=== PATIENT | female | born 1965 | race Caucasian/White ===

== ENCOUNTER → 2018-02-18 14:06 | Outpatient (CLI) | payer OTHER, SELFPAY ==
--- NOTE | 2018-02-18 14:08 | RAD_ITS ---
STUDY: X-RAY - RIGHT KNEE REASON FOR EXAM: Female, 52 years old. Pain TECHNIQUE: 4 view(s) of the knee. COMPARISON: None. FINDINGS: Normal visualized distal femur. Normal visualized proximal tibia and fibula. Normal proximal tibiofibular articulation. Normal medial femorotibial compartment. Normal lateral femorotibial compartment. Normal patellofemoral articulation. The soft tissue structures are unremarkable. RAD/Knee 4 or More Views IMPRESSION: Normal x-ray examination of the knee. Electronically Signed: Donald Giron DO at 23:57 EDT , Service support ,
== END ==
PROVIDERS: Family Provider Family Medicine; PCP Family Medicine; Visit Provider Orthopaedic Surgery
DX: M25.561 Pain in right knee (principal)
CPT/HCPCS: 73564

== ENCOUNTER → 2018-02-19 06:44 | Outpatient (CLI) | payer OTHER, SELFPAY ==
[2018-02-19 08:27] LABS: Absolute Lymphocyte Count 2.79 X10^3/ul (0.83-4.51); Absolute Neutrophil Count 4.6 X10^3/uL (2.0-7.7); Basophil# 0.08 X10^3/uL; Eosinophil# 0.22 X10^3/uL; Eosinophils% 2.7 % (0-5); Hematocrit 40.9 % (37-47); Hemoglobin 13.2 g/dl (12.0-15.0); Lymphocyte # 2.79 X10^3/ul (4.0); Lymphocyte % 33.6 % (19-41); Mean Corp Hgb Conc 32.3 g/gl (32-36); Mean Corpuscular Volume 89.9 fL (81-99); Mean Platelet Vol. 8.9 fl (6.2-12.0); Monocyte# 0.59 X10^3/uL; Monocyte% 7.1 % (0-10); Neutrophil # 4.57 X10^3/uL (2.7-7.7); Platelet Count 413 K/mm3 (150-450); RBC Distribution Width CV 13.8 % (11.6-14.6); RBC Distribution Width SD 44.8 fl (35.1-43.9); Red Blood Count 4.55 M/mm3 (4.2-5.4); White Blood Count 8.3 K/mm3 (4.4-11.0)
[2018-02-19 08:28] LABS: POSITIVE COUNT NO; POSITIVE DIFFERENTIAL NO; POSITIVE MORPHOLOGY NO
[2018-02-19 08:53] LABS: ALB/GLOB Ratio 1.1 RATIO (0.9-2.4); AST(SGOT) 16 U/L (15-37); Alanine Aminotransfer ALT/SGPT 33 U/L (13-56); Albumin, Serum 4.2 g/dL (3.2-5.0); Alkaline Phosphatase 82 U/L (45-117); Anion Gap 9 (5-15); BUN 16 mg/dL (7-18); BUN/Creat Ratio 20.7 RATIO (10-20); Calcium,Total 8.9 mg/dL (8.5-10.1); Chloride 105 mmol/L (98-107); Cholesterol 143 mg/dL (200); Creatinine, Serum 0.77 mg/dL (0.55-1.02); EST Glomerular Filtration Rate 83 mL/min (>60); Est Glom Filt Rate - Afr Amer 100 mL/min (>60); Globulin 3.7 g/dL (2.2-4.2); Glucose 98 mg/dL (74-106); High Density Lipoprotein 37 mg/dL; Potassium 3.8 mmol/L (3.5-5.1); Protein, Total 7.9 g/dL (6.4-8.2); Sodium Level 139 mmol/L (136-145); Triglycerides 202 mg/dL; Very Low Density Lipoprotein 40 mg/dL (5-40)
== END ==
PROVIDERS: Family Provider Family Medicine; PCP Family Medicine; Visit Provider Family Medicine
DX: Z00.00 Encounter for general adult medical examination without abnormal findings (principal); E78.5 Hyperlipidemia, unspecified
CPT/HCPCS: 36415; 80053; 80061; 85025

== ENCOUNTER → 2018-12-05 07:14 | Outpatient (CLI) | payer MEDICAID, SELFPAY ==
[2018-02-18 14:06] VITALS: BMI 33.2
[2018-12-05 08:03] LABS: Hematocrit 40.8 % (37-47); Mean Corp Hgb Conc 31.9 g/gl (32-36); Mean Corpuscular Hgb 29.1 pg (27.0-32.0); Mean Corpuscular Volume 91.3 fL (81-99); Mean Platelet Vol. 9.1 fl (6.2-12.0); Platelet Count 359 K/mm3 (150-450); RBC Distribution Width CV 13.7 % (11.6-14.6); RBC Distribution Width SD 45.2 fl (35.1-43.9); Red Blood Count 4.47 M/mm3 (4.2-5.4); White Blood Count 6.7 K/mm3 (4.4-11.0)
[2018-12-05 08:11] LABS: Scan Indicated on CBC? Y/N NO
[2018-12-05 08:47] LABS: ALB/GLOB Ratio 1.1 RATIO (0.9-2.4); AST(SGOT) 22 U/L (15-37); Alanine Aminotransfer ALT/SGPT 39 U/L (13-56); Albumin, Serum 3.9 g/dL (3.2-5.0); Alkaline Phosphatase 82 U/L (45-117); Anion Gap 10 (5-15); BUN 13 mg/dL (7-18); BUN/Creat Ratio 17.4 RATIO (10-20); Calcium,Total 9.4 mg/dL (8.5-10.1); Chloride 105 mmol/L (98-107); Cholesterol 156 mg/dL (200); Creatinine, Serum 0.75 mg/dL (0.55-1.02); EST Glomerular Filtration Rate 86 mL/min (>60); Est Glom Filt Rate - Afr Amer 104 mL/min (>60); Globulin 3.7 g/dL (2.2-4.2); Glucose 105 mg/dL (74-106); High Density Lipoprotein 33 mg/dL; Potassium 4.5 mmol/L (3.5-5.1); Protein, Total 7.6 g/dL (6.4-8.2); Sodium Level 141 mmol/L (136-145); Triglycerides 226 mg/dL; Very Low Density Lipoprotein 45 mg/dL (5-40)
== END ==
PROVIDERS: Family Provider Family Medicine; PCP Family Medicine; Referring Provider Family Medicine; Visit Provider Family Medicine
DX: Z00.01 Encounter for general adult medical examination with abnormal findings (principal); E78.5 Hyperlipidemia, unspecified
CPT/HCPCS: 36415; 80053; 80061; 85027

== ENCOUNTER → 2019-01-01 12:38 | Outpatient (CLI) | payer BC, SELFPAY ==
--- NOTE | 2019-01-01 12:43 | BI_ITS ---
MAMMOGRAPHY - BILATERAL SCREENING 3-D FABY SYNTHESIS REASON FOR EXAM: Female, 53 years old. Bilateral Screening 3-D tomosynthesis PERTINENT HISTORY: History of cyst aspirations over 25 years ago. TECHNIQUE: 2-D mammograms and 3-D Faby synthesis of the breast (s) were performed. CAD was performed. COMPARISON: October 31, 2017, May 15, 2015 FINDINGS: The breast composition is almost entirely fat. Scattered benign calcifications are stable. There are stable lymph nodes in both axillae. No dense spiculated masses or suspicious microcalcifications are identified. No architectural distortion is identified. There is no skin thickening or retraction. There has been no significant change since the prior study. BI/SCREENING MAMM (CAD), BILAT IMPRESSION: No mammographic signs of malignancy. Routine yearly mammograms recommended. ASSESSMENT CATEGORY: BIRADS Category 2: Benign. A letter regarding these results will be sent to the patient by the facility within 30 days. FOLLOW UP RECOMMENDATION: Yearly follow up mammogram recommended. (A) Approximately 10% of breast cancers are not detected by mammography. A normal mammogram should not delay biopsy of a clinically suspicious abnormality. Electronically Signed: Xu Mercado MD at 17:39 EDT , Service support ,
== END ==
PROVIDERS: Family Provider Family Medicine; PCP Family Medicine; Visit Provider Family Medicine
DX: Z12.31 Encounter for screening mammogram for malignant neoplasm of breast (principal)
CPT/HCPCS: 77063; 77067

== ENCOUNTER → 2019-10-23 09:27 | Outpatient (CLI) | payer BC, SELFPAY ==
[2019-10-03 09:33] VITALS: BMI 33.2
--- NOTE | 2019-10-23 09:31 | BI_ITS ---
MAMMOGRAPHY - BILATERAL SCREENING REASON FOR EXAM: Female, 54 years old. Routine annual screening examination. PERTINENT HISTORY: Non-contributory. TECHNIQUE: Digital bilateral breast faby (3D mammographic acquisition) in the CC and MLO projections. 2-D mediolateral oblique (MLO) and craniocaudad (CC) views of both breasts were obtained. CAD: Full Field Digital Mammography with Computer Added Detection was performed. COMPARISON: Comparison is made with prior examination of January 01, 2019 and October 31, 2007. FINDINGS: Breast Composition: There are scattered areas of fibroglandular density. There are no dominant masses or suspicious calcifications. Stable benign-appearing bilateral axillary No other significant abnormalities are identified. There has been no significant change since the prior study. BI/SCREEN MAMM (CAD) W/FABY BILAT IMPRESSION: Stable bilateral screening mammogram. Yearly follow-up mammogram recommended. (A) ASSESSMENT CATEGORY: BIRADS Category 2: Benign. A letter regarding these results will be sent to the patient by the facility within 30 days. Approximately 10% of breast cancers are not detected by mammography. A normal mammogram should not delay biopsy of a clinically suspicious abnormality. [id number] Electronically Signed: Daniele Mckenzie, at 9:27 EST , Service support ,
== END ==
PROVIDERS: Family Provider Family Medicine; PCP Family Medicine; Referring Provider Family Medicine; Visit Provider Family Medicine
DX: Z12.31 Encounter for screening mammogram for malignant neoplasm of breast (principal)
CPT/HCPCS: 77063; 77067

== ENCOUNTER → 2019-11-02 08:25 | Outpatient (CLI) | payer BC, SELFPAY ==
[2019-10-03 09:33] VITALS: BMI 33.2
[2019-11-02 09:01] LABS: Absolute Lymphocyte Count 2.44 X10^3/uL (0.83-4.51); Absolute Neutrophil Count 3.5 X10^3/uL (2.0-7.7); Basophil# 0.08 X10^3/uL; Basophil% 1.2 % (0-1); Eosinophil# 0.44 X10^3/uL; Eosinophils% 6.4 % (0-5); Hematocrit 40.4 % (37-47); Hemoglobin 13.3 g/dL (12.0-15.0); Lymphocyte # 2.44 X10^3/ul (4.0); Lymphocyte % 35.3 % (19-41); Mean Corp Hgb Conc 32.9 g/dL (32-36); Mean Corpuscular Hgb 29.8 pg (27.0-32.0); Mean Corpuscular Volume 90.4 fL (81-99); Monocyte# 0.41 X10^3/uL; Monocyte% 5.9 % (0-10); NRBC Flagged by Analyzer 0 % (0-5); Neutrophil # 3.52 X10^3/uL (2.7-7.7); Neutrophil % 50.8 % (47-70); Platelet Count 390 K/mm3 (150-450); RBC Distribution Width CV 12.9 % (11.6-14.6); RBC Distribution Width SD 42.9 fl (35.1-43.9); Red Blood Count 4.47 M/mm3 (4.2-5.4); White Blood Count 6.9 K/mm3 (4.4-11.0)
[2019-11-02 09:28] LABS: ALB/GLOB Ratio 1.1 RATIO (0.9-2.4); AST(SGOT) 12 U/L (15-37); Alanine Aminotransfer ALT/SGPT 32 U/L (13-56); Alkaline Phosphatase 77 U/L (45-117); Anion Gap 5 (5-15); BUN 12 mg/dL (7-18); BUN/Creat Ratio 15.7 RATIO (10-20); Calcium,Total 9.2 mg/dL (8.5-10.1); Chloride 107 mmol/L (98-107); Cholesterol 167 mg/dL (200); Creatinine, Serum 0.77 mg/dL (0.55-1.02); EST Glomerular Filtration Rate 83 mL/min (>60); Est Glom Filt Rate - Afr Amer 101 mL/min (>60); Globulin 3.7 g/dL (2.2-4.2); Glucose 95 mg/dL (74-106); High Density Lipoprotein 36 mg/dL; Protein, Total 7.7 g/dL (6.4-8.2); Sodium Level 139 mmol/L (136-145); Triglycerides 242 mg/dL; Very Low Density Lipoprotein 48 mg/dL (5-40)
== END ==
LOC: LAB.FUTURE 08:29 → BFHLAB 08:29
PROVIDERS: Family Provider Family Medicine; PCP Family Medicine; Visit Provider Family Medicine
DX: Z00.01 Encounter for general adult medical examination with abnormal findings (principal); E78.5 Hyperlipidemia, unspecified; E78.1 Pure hyperglyceridemia
CPT/HCPCS: 36415; 80053; 80061; 85025

== ENCOUNTER → 2019-12-07 | Outpatient (CLI) | payer BC, SELFPAY ==
[2019-12-07 14:29] VITALS: BMI 33.2
--- NOTE | 2019-12-07 14:38 | RAD_ITS ---
STUDY: X-RAY - LEFT KNEE REASON FOR EXAM: Pain. TECHNIQUE: 4 view(s) of the knee. COMPARISON: None. FINDINGS: Normal visualized distal femur. Normal visualized proximal tibia and fibula. Normal proximal tibiofibular articulation. Normal medial femorotibial compartment. Normal lateral femorotibial compartment. Normal patellofemoral articulation. The soft tissue structures are unremarkable. RAD/Knee 4 or More Views IMPRESSION: Normal x-ray examination of the left knee. Electronically Signed: Hermelindo Newman MD at 15:31 EST Tel , Service support ,
== END | disposition home or self-care (01) ==
LOC: HPRAD 14:38
PROVIDERS: PCP Family Medicine; Referring Provider Orthopaedic Surgery; Visit Provider Orthopaedic Surgery
DX: M25.562 Pain in left knee (principal)
CPT/HCPCS: 73564

== ENCOUNTER 2020-03-24 09:35 | Day surgery (SDC) | payer BC, SELFPAY ==
--- NOTE | 2019-11-30 10:47 | HP_ITS ---
I have re-examined the patient. There are no clinical changes since date of exam. Intake Vital Signs 11/26/19 BMI 33.2 Intake Visit Reasons: bilat trigger finger Allergies codeine Allergy (Verified 10/03/19 09:31) Shortness of breath Iodinated Contrast Media [CONTRASTS] Allergy (Verified 10/03/19 09:31) Hives Penicillins Allergy (Verified 10/03/19 09:31) Shortness of breath Sulfa (Sulfonamide Antibiotics) Allergy (Verified 10/03/19 09:31) Shortness of breath Medications Calcium (Elemental) [Os-Tim 500] 500 mg PO BIDCM 02/06/15 [History Confirmed 11/26/19] Pravastatin [Pravachol] 40 mg PO DAILY 02/06/15 [History Confirmed 11/26/19] coenzyme Q10 30 mg capsule 30 mg PO DAILY 10/03/19 [History Confirmed 11/26/19] fluticasone 113 mcg-salmeterol 14 mcg/actuation breath activated powdr INHALATION 10/03/19 [History Confirmed 11/26/19] nitrofurantoin macrocrystal 50 mg capsule PO 10/03/19 [History Confirmed 11/26/19] salmeterol 21 mcg/actuation aerosol inhaler mcg INHALATION 10/03/19 [History Confirmed 11/26/19] amlodipine 2.5 mg tablet 2.5 mg PO DAILY 11/26/19 [History Confirmed 11/26/19] [facility] Social History (Updated 11/30/19 @ 10:[address] Sharon Champion DO) Smoking Status: Never smoker HPI bilat trigger finger: Surgical H&P: Yes Details: Parts of this documentation were recorded by a scribe, this documentation accurately reflects the service provided and the decisions made by me, Dr. Sharon Champion DO 11/26/19 0806. MARCELLA JACOBS is a 54 year old F here today for triggering in the ring finger of each hand. She states that this began about 5months ago in the right and then several weeks later she noticed it in the left. She has discomfort in the left ring finger but not as much in the right. Both trigger infrequently and she has had no treatment for either. Denies numbness, tingling or other associated symptoms. There is no swelling or redness noted today. ROS Musc Reports as per HPI, Reports joint pain, Reports stiffness Skin/Breast Reports system reviewed and no additional complaints, except as docu Neuro Yes system reviewed and no additional complaints, except as docu Assessment & Plan Problems 1. Trigger finger, left ring finger M65.342 2. Trigger finger, right ring finger M65.341 Plan Educated on the anatomy of the hand and the olvin system. Explained that the treatment options are do nothing, injections or release. Patient elects to proceed with surgery. Reviewed the post op restrictions Reviewed the pre-operative plans with the patient. Risks and benefits of the procedure were fully explained, including but not limited to infection, neurovascular injury, continued pain, arthritis, stiffness, need for further surgery, re-injury, DVT, PE, general risks of anesthesia, and loss of limb or life. The patient understands all the risks and does wish to proceed with written consent. Follow up post op or sooner if pain, swelling, numbness or associated symptoms, or concerns develop. All questions answered. Patient in agreement of plan. Coding Level of Care Code Off vis,est,level 4 Diagnoses Trigger finger, left ring finger M65.342 Trigger finger, right ring finger M65.341 11/30/19 1048 <Electronically signed by Sharon campos DO> Date _ Sharon Champion DO
[2019-12-07 14:29] VITALS: BMI 33.2
[2020-03-09 10:16] VITALS: BMI 33.2
[2020-03-24] VITALS (7 sets, daily range): BP systolic 123–170; BP diastolic 70–88; PULSE 70–88; RESP 16–20; TEMP 36.3–36.7; O2SAT 96–100; BMI 34.7
[2020-03-24] MEDS: Lactated Ringers 1,000 ML 100 ML IV (10:23)
--- NOTE | 2020-03-24 11:46 | PCM.DC.ORTHO ---
Discharge Diet: No Restrictions - follow up in 10-14 days, if dressing gets wet or dirty, please change; call with concerns, keep incisions clean and dry, Discharge Activity: May Not Drive May shower in (days): 1 Ice area for (Minutes): 20 - Every hour while awake. Weight Bearing Status: Weight bearing as tolerated Keep extremity elevated above heart level: Operative Extremity Call your doctor if your incision/area has: Continuous Slow Oozing, Sudden Increased Bleeding, Increased Pain/ Swelling, Increased Redness, Foul Smelling Discharge Call your doctor if you observe: Fever of 101 or Higher, Coldness, Increased Pain, Numbness or Tingling, Change in Color, Calf discomfort Allergies/Adverse Reactions: Allergies codeine Allergy (Verified 03/24/20 10:09) Shortness of breath Iodinated Contrast Media [CONTRASTS] Allergy (Verified 03/24/20 10:09) Hives Penicillins Allergy (Verified 03/24/20 10:09) Shortness of breath Sulfa (Sulfonamide Antibiotics) Allergy (Verified 03/24/20 10:09) Shortness of breath Medications to take at Discharge Pravastatin [Pravachol] 40 mg PO QHS 02/06/15 coenzyme Q10 30 mg capsule 100 mg PO QHS 10/03/19 nitrofurantoin macrocrystal 50 mg capsule 1 cap PO QHS 10/03/19 amlodipine 2.5 mg tablet 2.5 mg PO QHS 11/26/19 Calcium Carbonate/Vitamin D3 [Caltrate 600 Plus D3 Tablet] 2 ea PO QHS 03/17/20 Fluticasone 110 Mcg [Flovent (SP)] 1 puff INHALATION BID 03/17/20 traMADol [Ultram] 50 mg PO Q6H PRN PRN 5 Days #20 tab 03/24/20 The following prescriptions were given: traMADol [Ultram] 50 mg PO Q6H PRN PRN 5 Days #20 tab PRN Reason: Pain Or Fever Transmission Status: Received by [facility]/pharmacy #[id number] Primary Care Physician: Lucas Infante DO [Primary Care Provider] - Test Results: Test results from this visit will be discussed in further detail at your follow-up appointment, if applicable. Please Follow Up With: Sharon Champion DO - [phone]
--- NOTE | 2020-03-24 11:46 | PCM.OPRPT ---
Report of Operation Date of Procedure: 03/24/20 Pre-Operative Diagnosis: left 3rd, 4th and 5th finger trigger fingers, right fourth finger trigger finger Surgery/Procedure Performed:: Left third fourth and fifth [id number] releases, right fourth A1 olvin release Type of Anesthesia:: General/Regional, Local Anesthesiologist: Anurag Cortez Estimated Blood Loss (mL): min Description of Procedure: Dragon trigger finger Preoperative note Patient is a 54 year-old female who has known history of right fourth and left third through fifth trigger fingers. Her third and fifth have recently been triggering on the left hand and patient wanted to have these release as well. Patient failed conservative treatment, patient elected to proceed so she can regain function and decrease her pain and locking. Risks benefits and alternatives surgery discussed with patient. Risks including but not limited to blood loss, blood clot, infection, neurovascular injury, failure procedure, loss of life and loss of limb. Patient is aware would like proceed with right trigger finger fourth release A1 olvin release as well as left third fourth and fifth A1 olvin releases. Sheri POLK We discussed the current risk associated COVID-19. While it is understood that there is a community spread of COVID 19 the risk of teagan COVID-19 while at [facility] is very low, however, the risk cannot be completely mitigated because of the community spread of the disease. We discussed in detail the risk of exposure to and or potential harm posed by the COVID-19 virus with having a surgery/procedure at this time versus the risk of delaying the surgery/procedure. Is not possible to know either the risk of delaying the surgery procedure or chance of getting an infection with perfect accuracy, but a joint decision was made to proceed at this time with a schedule surgery/procedure as indicated on the consent form. Patient was notified that we will need to comply with any screening or testing [facility] wishes to perform or that surgery may be delayed for any positive results. Also discussed that I have not been tested and there is risk and is associated with this patient still like to proceed with A1 olvin release of the left third fourth and fifth and her right fourth. Operative note Patient seen and examined preoperative holding area. left middle ring and fifth finger were marked as well as her right ring finger patient is brought to the operating room and placed supine on the operating table. Sign, anesthesia, antibiotics were administered. The left arm was prepped and draped in usual sterile fashion after Wily block was initiated. We did test the Van block it was working. Timeout was performed. We marked out our incision at the A1 olvin of the left middle ring and fifth.. We was about a centimeter and a half for length for each.. We used a 15 blade to cut the skin tenotomies to dissect down to the level of the A1 olvin. We then released the A1 olvin both proximally and distally we then brought the tendons out of the incision and flex and extend at the DIP of the left middle finger to ensure that we had no further locking which we did not have. We then repeated the same steps for the left hand for the a fourth and fifth fingers. Ensuring to pull the tendon out of the incision and flex and extend the fingers without locking. We then irrigated the incision with copious amounts of sterile saline. Incision was closed with interrupted 4-0 nylon stitches. Tourniquet was deflated for total working time of minutes. We then moved to the right side. We made incision over her fourth finger after local was instilled placed into the site of the incision. Please note that the right hand was also prepped and draped in the usual sterile technique technique at the site and same time that we did prepped and draped the left hand. We then use a 15 blade to use to cut the skin dissected down to nausea level of the A1 olvin A1 olvin was released proximally and distally and the tendon was brought out of the incision and flexed and extended the right fourth finger to ensure that we had full release of the olvin which we did have. Patient tolerated procedure well there are no complications, patient transferred to recovery room in stable condition. Postoperative note Use hand as tolerated but keep incision clean and dry Discussed with family Follow-up in 2 weeks for dressing change and suture removal This note was generated with [employer] software. It may contain incorrect words, spelling, and punctuation that were not noted in checking the note before signing.
[2020-03-24] MEDS: Mupirocin Ointment 22gm Tube 1 APPLIC (12:41)
== END 2020-03-24 14:15 | disposition home or self-care (01) ==
LOC: SDC 09:38 → AC 09:49
PROVIDERS: Anesthesiology; PCP Family Medicine; Visit Provider Orthopaedic Surgery
PROC: (CPT 26055; principal; 2020-03-24 10:45)
DX: M65.341 Trigger finger, right ring finger (principal); M65.332 Trigger finger, left middle finger; M65.342 Trigger finger, left ring finger; M65.352 Trigger finger, left little finger; E78.00 Pure hypercholesterolemia, unspecified; I10 Essential (primary) hypertension; J45.909 Unspecified asthma, uncomplicated; Z11.59 Encounter for screening for other viral diseases; Z87.440 Personal history of urinary (tract) infections; Z79.51 Long term (current) use of inhaled steroids; Z79.899 Other long term (current) drug therapy
CPT/HCPCS: 01810; 26055 ×4; 87635; G2023; J7120; U0003

== ENCOUNTER 2020-05-08 07:13 | Day surgery (SDC) | payer BC, SELFPAY ==
[2020-03-31 13:19] VITALS: BMI 34.7
[2020-04-06 08:18] VITALS: BMI 34.7
[2020-05-08] VITALS (7 sets, daily range): BP systolic 95–159; BP diastolic 59–87; PULSE 72–93; RESP 16–18; TEMP 36.3–36.6; O2SAT 97–100; BMI 34.4
--- NOTE | 2020-05-08 | GASB_PTH ---
PATIENT: MARCELLA JACOBS LOC: EN U#:[id number] AGE/SX: 55/F ROOM: RE05/08/[address]: Dr. Karyn Powers MD : [id number] BED: DIS: 05/08/2020 SPEC #: [id number] RECD: 05/08/20 11:57 STATUS: CHRISTINE FUNMILAYO #: [id number] RAVEN: 05/08/20 00:[address]: Karyn Powers DEPT: SURGICAL PATHOLOGY RECD BY: Julio Cesar Dowell ENTERED: 05/08/20 11:58 SP TYPE: Gastric Bx OTHR DR: Dr. Lucas Infante DO Tissues: A - Gastric mucous membrane B - Gastric mucous membrane C - Gastric mucous membrane D - Sigmoid colon biopsy Procedures: Special Stain Group II Surgery Specimen Level IV Alcian Blue/PAS (control) HEADER OPERATION: Colonoscopy, EGD ([facility]) PRE-OP DIAGNOSIS: Epigastric discomfort, family history of colon and esophageal cancer TISSUE SUBMITTED: A - Antral biopsy for H. pylori and pathology, B - Gastric polyp biopsy, C - GE junction biopsy, D - Sigmoid polyp biopsy MICROSCOPIC DIAGNOSIS A. Antral biopsy: Mild gastritis. See microscopic description and comment. B. Gastric polyp, biopsy: Consistent with fundic gland polyp. C. GE junction, biopsy: Fragments of gastroesophageal mucosa with mild chronic inflammation. Intestinal metaplasia (goblet cell metaplasia) is not identified. See comment. D. Sigmoid polyp, biopsy: A fragment of colonic mucosa with a minute mucosal neuroma (0.2 cm in greatest dimension). See comment. SJ:rg 05/09/20 COMMENT A. The results of immunohistochemistry for Helicobacter pylori will be reported separately ([id number]). C. Alcian blue/PAS stain with matched control is used in the evaluation of the specimen. D. Immunohistochemistry ([id number]) supports the above diagnosis. Case has been reviewed in consultation with Dr. Rosario who concurs with the above diagnosis. IDC:AM MICROSCOPIC DESCRIPTION Slides are reviewed. A. The specimen shows fragments of gastric mucosa with chronic inflammatory cell infiltrates in the lamina propria consisting of lymphocytes and plasma cells, consistent with mild chronic gastritis. GROSS DESCRIPTION A - Received in fixative is one container labeled with the patient's name and designated antral biopsy. The specimen consists of one irregular fragment of light segura soft tissue that measures 0.7 x 0.2 x 0.1 cm. The specimen is totally submitted in one cassette. B - Received in fixative is one container labeled with the patient's name and designated gastric polyp. The specimen consists of two irregular fragments of light segura soft tissue that in aggregate measure 0.5 x 0.5 x 0.1 cm. The specimen is totally submitted in one cassette. C - Received in fixative is one container labeled with the patient's name and designated GE junction biopsy. The specimen consists of multiple irregular fragments of light segura soft tissue that in aggregate measure 0.6 x 0.6 x 0.1 cm. The specimen is totally submitted in one cassette. D - Received in fixative is one container labeled with the patient's name and designated sigmoid polyp. The specimen consists of one irregular fragment of light segura soft tissue that measures 0.2 x 0.2 x 0.1 cm. The specimen is totally submitted in one cassette. / AM:hasmukh 05/08/20 TC:3 CPT: 52947 x4, 14551
[2020-05-08] MEDS: Lactated Ringers 1,000 ML 100 ML IV (07:40)
--- NOTE | 2020-05-08 08:31 | HP.PCM_ITS ---
History of Present Illness Date of Admission: 05/08/20 The patient is a 55 year old F for EGD/colonoscopy due to epigastric pain/hiatal hernia and family history of colon cancer.. Patient does have a family history of colon cancer with her paternal grandfather in his 30s, paternal aunt in her 50s to 60s and paternal first cousin diagnosed around 40 years old. Patient's last colonoscopy was in 2014 she had no polyps at that time unable to completely intubate the cecum but able to see fairly well into the cecum due to a tortuous colon. Patient also states she occasionally has some epigastric discomfort and has history of hiatal hernia diagnosed on an EGD about 10 years ago?currently patient denies any epigastric pain.. Patient's father also was diagnosed with esophageal cancer he did not smoke or drink. Patient otherwise denies any chronic abdominal pain has bowel movements daily denies any blood. Past Medical/Surgical History - Planned Operation Planned Operative Procedure/s: colonoscopy/EGd Date of Operative Procedure: 05/08/20 Permit Signed: No S.O.S: No Is This Patient Having a Total Joint: No - Previous Hospitalizations/Surgeries HX Hospitalizations: No HX of Surgeries: wrist tendon releases EGD/colonoscopy. hysterectomy. . right thumb trigger release 2012. left trigger, 3,4,5/ right 4th olvin releaes 03/2020 Any Problems With Anesthesia: No You/Your Family Experience Fever (Hyperthermia) With Anes: No Cholinesterase deficiency: No - Cardiovascular Hx Chest Pain within Last 2 months: No Hx of Irregular Heartbeat and/or Afib: No Hx Heart Attack: No Hx Congestive Heart Failure: No Hx Rheumatic Fever: No Hx Hypertension: No Hx Internal Defibrillator: No Hx Pacemaker: No Hx Cardiac Catheterization: No Hx Cardiac Surgery/Stents/Etc.: No Hx Stress Test: Yes - per hx,not recent HX Edema: No Hx Pain in Legs when Walking/Leg Cramps: No - Respiratory Chronic Cough: No HX of Shortness of Breath: No - denies Hoarseness: No Hx Chronic Obstructive Pulmonary Disease (COPD): No Hx Asthma: Yes - flovent inhaler daily Hx Emphysema: No Hx Sleep Apnea: No CPAP: No Hx Oxygen Use at Home: No Hx Respiratory Tract Infection/Cold (presently): No Do You Snore Loudly (louder than talking or can be heard): Yes Do You Often Feel Tired/ Fatigued/ Sleepy Dring Daytime?: No Has Anyone Observed You Stop Breathing During Sleep?: No Result (for STOP score): Negative Hx Smoking: No Smoking Status: Never smoker - Gastrointestinal Hx Gastroesophageal Reflux: No Hx Gastrointestinal Disorders: No Hx Gastrointestinal Bleed: No Hx Ulcer: No Hx Hiatal Hernia: Yes - per hx Difficulty Chewing/Swallowing: No Recent Onset of Swallowing Problems: No Special diet followed at home: No Hx Unplanned Weight Loss of 20#: No HX Unplanned Weight Gain of 20#: No - Neurological Hx Seizures: No HX Syncope/Blackout Spells/Unconsciousness: No Hx CVA/Stroke: No Hx Transient Ischemic Attacks (TIA): No Hx Multiple Sclerosis: No Hx Parkinson's Disease: No Hx Head/Neck Injury: No Hx Headaches: No Hx Back Injury/Pain: No Recent Onset of Speech Difficulty: No Restless Legs: No Does patient have nerve stimulator: No - Blood Disorder Hx Leukemia: No Bleeding Tendencies: No Hx Deep Vein Thrombosis: No Hx High Cholesterol: Yes - on med Blood Transmitted Disease: No Hx Hepatitis: No Hx Cirrhosis: No Hx Anemia: No Hx Blood Disorders: No - Reproduction Is Patient Lactating: No Hx Hysterectomy: Yes Are You Post Menopause: Yes - Genitourinary Hx Renal Disease: Yes - hx UTI's, on med Hx Dialysis: No - Musculoskeletal Hx Arthritis: No Hx Rheumatoid Arthritis: No Hx Gout: No Recent Onset of an Orthopedic Problem: Yes - it band syndrome/bilat knee - Endocrine Hx Diabetes: No Thyroid Disease: No Hx Steroid Therapy: Yes - oral dose 09/2019 - Psycho/Social Hx Substance Use: No Hx Alcohol Use: No Hx Anxiety: No Hx Depression: No Mental Illness: No Hx Dementia: No - Miscellaneous Hx Cancer: No Recent Exposure to Contagious Disease: No Active MRSA: No Hx of C-Diff: No Any Loose Teeth: No Allergies codeine Allergy (Verified 05/08/20 07:33) Shortness of breath Iodinated Contrast Media [CONTRASTS] Allergy (Verified 05/08/20 07:33) Hives Penicillins Allergy (Verified 05/08/20 07:33) Shortness of breath Sulfa (Sulfonamide Antibiotics) Allergy (Verified 05/08/20 07:33) Shortness of breath - Discharge Is Pt Admitted From a Detention, or a Senior Care: No Who Could Help: ,carlitos After D/C, Where Do you Plan to Go: Return Home - Physical Exam Vitals/I&O's: Vital Signs Temp Pulse Resp BP Pulse Ox 98 F 93 16 132/79 H 99 05/08/20 07:33 05/08/20 07:33 05/08/20 07:33 05/08/20 07:33 05/08/20 07:33 Oxygen Delivery Method Room Air Weight: 176 lb 2.389 oz Body Mass Index (BMI) 34.4 General: Alert, Oriented x3, Cooperative, No apparent distress HEENT: Atraumatic Lungs: Normal air movement Cardiovascular: Regular rate Abdomen: Soft, Non Tender, Non-Distended Extremities: No clubbing, No cyanosis Neurological: Cranial nerves II-XII grossly intact Psych/Mental Status: Normal Affect Current Medications Lactated Ringer's () 1,000 mls @ 100 mls/hr IV .Q10H SAMANTHA Last Admin: 05/08/20 07:40 Dose: 100 mls/hr Documented by: Assessment/Plan All Active Problems (Last Reviewed 03/31/20 @ 13:15 by Sariah Altman) Epigastric discomfort (Acute) 55-year-old female with epigastric pain, family history of colon cancer and esophageal cancer Procedure Criteria Procedure Type: Elective COVID Risk Discussion: The surgeon/proceduralist and patient have discussed in detail the risk of exposure to and/or potential harm posed by the COVID-19 virus with having a surgery/procedure at this time versus the risk of delaying the surgery/procedure. It is not possible to know either the risk of delaying the surgery or procedure or chance of getting an infection with perfect accuracy, but a joint decision was made between the patient and the surgeon/proceduralist to proceed at this time with the scheduled surgery/procedure as indicated on the consent form. Surgery Risks - Colonoscopy I discussed with the patient the risks of the procedure: Yes Risks Include but are not Limited To: Risks include but are not limited to: Bleeding, perforation requiring further surgery, inability to complete colonoscopy requiring barium enema.
--- NOTE | 2020-05-08 08:45 | IMM_PTH ---
PATIENT: MARCELLA JACOBS LOC: EN U#:[id number] AGE/SX: 55/F ROOM: RE05/08/[address]: Dr. Karyn Powers MD : 1965 BED: DIS: 05/08/2020 SPEC #: [id number] RECD: 05/08/20 12:05 STATUS: CHRISTINE RETami #: [id number] RAVEN: 05/08/20 08:[address]: Karyn Powers DEPT: IMMUNOHISTOCHEMISTRY RECD BY: Kelli Ware ENTERED: 05/08/20 12:05 SP TYPE: IMMUNO OTHR DR: Dr. Lucas Infante DO Tissues: A - Stomach, NOS D - Sigmoid colon biopsy Procedures: H Pylori (initial) SMA (add) CD34 (add) DESMIN (add) Vimentin (initial) S-100 (add) PHYSICIAN & INSTITUTION [place] [id number] SPECIMEN INFORMATION: Tissue Source: A - Antral biopsy, D - Sigmoid polyp biopsy Clinical Info: Epigastric discomfort; family history colon and esophageal cancer Specimen Number: [id number] A & D CPT code: 79330 x2, 98475 x4 METHODOLOGY: Deparaffinized sections of prefer/formalin-fixed tissue or PAP/DQ stained slides are incubated with monoclonal/polyclonal antibodies/oligonucleotide probes. Localization is made via biotin free immunoperoxidase method. Appropriate controls are performed and reacted as expected. Results on target cell population are indicated in the following table: RESULTS: ANTIBODY / CLONE RESULT Block A H Pylori (polyclonal) negative Block D Vimentin (V9) positive Actin (1A4) negative CD34 (QBEnd-10) negative Desmin (CE-R-11) negative S-100 (4C4.9) positive These tests were developed and their performance characteristics determined by [facility]. They may not have been cleared or approved by the U.S. Food and Drug Administration. The FDA has determined that such clearance or approval is not necessary. The above immunohistochemical/dualISH markers are ordered and reviewed by the pathologist. INTERPRETATION: A. Antral biopsy: Negative for Helicobacter pylori organisms. D. Sigmoid polyp, biopsy: A minute mucosal neuroma (0.2 cm in greatest dimension) SJ:hasmukh 05/09/20
--- NOTE | 2020-05-08 09:47 | OP.EGD_ITS ---
Patient Name: Cynthia Wallis Procedure Date: 05/08/2020 8:40 AM Date of : 1965 Age: 55 Procedure: Upper GI endoscopy Indications: Epigastric abdominal pain Providers: Karyn Powers MD Referring MD: Karyn Powers MD Medicines: Monitored Anesthesia Care Patient Profile: This is a 55 year old female. Complications: No immediate complications. Procedure: Pre-Anesthesia Assessment: - Prior to the procedure, a History and Physical was performed, and patient medications and allergies were reviewed. The patient's tolerance of previous anesthesia was also reviewed. The risks and benefits of the procedure and the sedation options and risks were discussed with the patient. All questions were answered, and informed consent was obtained. Prior Anticoagulants: The patient has taken no previous anticoagulant or antiplatelet agents. ASA Grade Assessment: Per anesthesia. After reviewing the risks and benefits, the patient was deemed in satisfactory condition to undergo the procedure. After obtaining informed consent, the endoscope was passed under direct vision. Throughout the procedure, the patient's blood pressure, pulse, and oxygen saturations were monitored continuously. The gastroscope was introduced through the mouth, and advanced to the second part of duodenum. The upper GI endoscopy was accomplished without difficulty. The patient tolerated the procedure well. Scope In: 8:52:39 AM Scope Out: 9:01:18 AM Total Procedure Duration Time 0 hours 8 minutes 39 seconds Findings: The Z-line was irregular and was found 37 cm from the incisors. Biopsies were taken with a cold forceps for histology. A few less than 5 mm sessile polyps with no bleeding and no stigmata of recent bleeding were found in the gastric body. The polyp was removed with a cold biopsy forceps. Resection and retrieval were complete. Mildly erythematous mucosa without bleeding was found in the gastric antrum. Biopsies were taken with a cold forceps for histology. Biopsies were taken with a cold forceps for Helicobacter pylori cultures. The stomach was normal. A small sliding hiatal hernia was present. The examined duodenum was normal. Impression: - Z-line irregular, 37 cm from the incisors. Biopsied. - A few gastric polyps. Resected and retrieved. - Erythematous mucosa in the antrum. Biopsied. - Normal stomach. - Small sliding hiatal hernia. - Normal examined duodenum. Recommendation: - Await pathology results. - Use Protonix (pantoprazole) 40 mg PO daily. - Continue present medications. Procedure Code(s): --- Professional --- 78860, Esophagogastroduodenoscopy, flexible, transoral; with biopsy, single or multiple Diagnosis Code(s): --- Professional --- K22.8, Other specified diseases of esophagus K31.7, Polyp of stomach and duodenum K31.89, Other diseases of stomach and duodenum K44.9, Diaphragmatic hernia without obstruction or gangrene R10.13, Epigastric pain CPT copyright 2017 [employer]. All rights reserved. The codes documented in this report are preliminary and upon saw filer review may be revised to meet current compliance requirements. MD Karyn Adams MD 05/08/2020 9:46:53 AM This report has been signed electronically. Number of Addenda: 0 Note Initiated On: 05/08/2020 8:40 AM
--- NOTE | 2020-05-08 09:47 | OP.CCLET_ITS ---
05/08/2020 Lucas Infante [address] [facility] [place] [address] Re : Upper GI endoscopy procedure for Cynthia Wallis Dear Dr. Infante This procedure was performed on Friday, May 08, 2020. My impressions and recommendations are as follows: Impressions : - Z-line irregular, 37 cm from the incisors. Biopsied. - A few gastric polyps. Resected and retrieved. - Erythematous mucosa in the antrum. Biopsied. - Normal stomach. - Small sliding hiatal hernia. - Normal examined duodenum. Recommendations : - Await pathology results. - Use Protonix (pantoprazole) 40 mg PO daily. - Continue present medications. My findings are described in the full procedure note, which is enclosed. If I can be of further assistance, please feel free to contact me at Doctor phone number(s): , Work: . Sincerely, MD Karyn Adams MD 05/08/2020 9:46:53 AM This report has been signed electronically.
--- NOTE | 2020-05-08 09:50 | OP.CCLET_ITS ---
05/08/2020 Lucas Infante [address] [place] [address] Re : Colonoscopy procedure for Cynthia Wallis Dear Dr. Infante This procedure was performed on Friday, May 08, 2020. My impressions and recommendations are as follows: Impressions : - Hemorrhoids found on perianal exam. - One less than 5 mm polyp in the sigmoid colon, removed with a cold biopsy forceps. Resected and retrieved. Biopsied. - The examination was otherwise normal. Recommendations : - Discharge patient to home. - Resume previous diet. - Continue present medications. - Await pathology results. - Repeat colonoscopy in 5-10 years for surveillance based on pathology results. My findings are described in the full procedure note, which is enclosed. If I can be of further assistance, please feel free to contact me at Doctor phone number(s): , Work: . Sincerely, MD Karyn Adams MD 05/08/2020 9:50:30 AM This report has been signed electronically.
--- NOTE | 2020-05-08 09:50 | OP.COLON_ITS ---
Patient Name: Cynthia Wallis Procedure Date: 05/08/2020 9:01 AM Date of : 1965 Age: 55 Procedure: Colonoscopy Indications: Family history of colon cancer in multiple second-degree relatives Providers: Karyn Powers MD Referring MD: Karyn Powers MD Medicines: Monitored Anesthesia Care Patient Profile: This is a 55 year old female. Last Colonoscopy: 2014. Complications: No immediate complications. Procedure: Pre-Anesthesia Assessment: - Prior to the procedure, a History and Physical was performed, and patient medications and allergies were reviewed. The patient's tolerance of previous anesthesia was also reviewed. The risks and benefits of the procedure and the sedation options and risks were discussed with the patient. All questions were answered, and informed consent was obtained. Prior Anticoagulants: The patient has taken no previous anticoagulant or antiplatelet agents. ASA Grade Assessment: Per anesthesia. After reviewing the risks and benefits, the patient was deemed in satisfactory condition to undergo the procedure. After I obtained informed consent, the scope was passed under direct vision. Throughout the procedure, the patient's blood pressure, pulse, and oxygen saturations were monitored continuously. The Colonoscope was introduced through the anus and advanced to the cecum, identified by the appendiceal orifice, ileocecal valve and palpation. The colonoscopy was technically difficult and complex due to a tortuous colon. Successful completion of the procedure was aided by applying abdominal pressure. Scope In: 9:04:39 AM Scope Withdrawal Time 0 hours 10 minutes 19 seconds Scope Out: 9:32:37 AM Total Procedure Duration Time 0 hours 27 minutes 58 seconds Findings: Hemorrhoids were found on perianal exam. A less than 5 mm polyp was found in the sigmoid colon. The polyp was sessile. The polyp was removed with a cold biopsy forceps. Resection and retrieval were complete. Biopsies were taken with a cold forceps for histology. The exam was otherwise without abnormality. Impression: - Hemorrhoids found on perianal exam. - One less than 5 mm polyp in the sigmoid colon, removed with a cold biopsy forceps. Resected and retrieved. Biopsied. - The examination was otherwise normal. Recommendation: - Discharge patient to home. - Resume previous diet. - Continue present medications. - Await pathology results. - Repeat colonoscopy in 5-10 years for surveillance based on pathology results. Procedure Code(s): --- Professional --- 43750, PT, Colonoscopy, flexible; with biopsy, single or multiple Diagnosis Code(s): --- Professional --- K64.9, Unspecified hemorrhoids D12.5, Benign neoplasm of sigmoid colon Z80.0, Family history of malignant neoplasm of digestive organs CPT copyright 2017 [employer]. All rights reserved. The codes documented in this report are preliminary and upon soil surveyor review may be revised to meet current compliance requirements. MD Karyn Adams MD 05/08/2020 9:50:30 AM This report has been signed electronically. Number of Addenda: 0 Note Initiated On: 05/08/2020 9:01 AM
== END 2020-05-08 10:33 | disposition home or self-care (01) ==
LOC: EN 07:16 → AC 07:16
PROVIDERS: Anesthesiology; PCP Family Medicine; Referring Provider Surgery; Visit Provider Surgery
PROC: 0DJD8ZZ Inspection of Lower Intestinal Tract, Via Natural or Artificial Opening Endoscopic (ICD-10-PCS; CPT 45378; principal; 2020-05-08 08:40)
DX: K29.70 Gastritis, unspecified, without bleeding (principal); K31.7 Polyp of stomach and duodenum; K64.9 Unspecified hemorrhoids; K44.9 Diaphragmatic hernia without obstruction or gangrene; E78.00 Pure hypercholesterolemia, unspecified; J45.909 Unspecified asthma, uncomplicated; Z80.0 Family history of malignant neoplasm of digestive organs; Z11.59 Encounter for screening for other viral diseases; Z79.51 Long term (current) use of inhaled steroids; Z87.440 Personal history of urinary (tract) infections; Z79.899 Other long term (current) drug therapy
CPT/HCPCS: 43239; 45380; 87635; 88305; 88313; 88341; 88342; G2023; J7120; U0003

== ENCOUNTER 2020-05-11 10:30 | Outpatient (RCR) | payer BC, SELFPAY ==
[2019-12-07 14:29] VITALS: BMI 33.2
--- NOTE | 2019-12-14 10:53 | HP.PTEVAL ---
Patient's Visit Information MARCELLA JACOBS is a 54 year old F referred to Physical Therapy by Dr. 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 Date of Evaluation: 12/14/19 Physical Therapist: Monico Cortez, DPT, OCS, CSCS - Visit Plan Frequency: 3x /Week Duration: 2-4 Weeks Plan: 3x/week for 2-4 weeks for. 1. rollout and stretch L ITB and quad, L fibular head mobs. 2. US to L lateral knee nonthermal. 3. when improved, progress to strengthening L knee and hip. 4. ES with ice as needed. - Subjective Findings: Two weeks ago had insidious onset of L knee funny feeling and gradually increased over two days to where she could not weight bear. Saw Akira the next Friday. Xrays were good. No previous history. No swelling ever. Pain is 0/10 at rest and has quad cramping. Walking today 2/10 pain. 7/10 pain a week ago. Big grocery shop trip yesterday and gait is really bad. Has crutch to walk with. Sleep is OK. Not employed. Hard to do home activities including steps and getting onto car. No exercises. 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 February 19 anniversary trip to [place] cruise and wants to walk alot. - Pain L knee pain Pain Intensity (Out of 10): 1 Pain Intensity Range: 0, 7 - Objective crutch in R arm PWB walking L due to pain. Without crutch has large antalgia. Trasnfers are I. Tender to palpation in ITB distally mod and prox min, also at fibular head mod on L. ITB is max tight not adducting at all in sidelying, HS 90/90 test is -15 B. quad is mod tight B. AROM B knees fulla nd without pain today. Hips and ankles WFL. strength hips 3+/5 with slight L abd pain at knee. knee ext adn flexion are 4+/5 and painfree. Hip ext 4/5 and painfree. hip flexion B 4/5 and painfree. Ankle strength 4+ B. Sensation WNL to gross light touch B. LB AROM WFL. - ant drawer, - bounce home, - valgus and varus B, - Goals Goal 1:: abolish tenderness lateral L knee. Goal Time Frame: 2-4 Weeks Goal 2:: Walk without AD without antalgia Goal Time Frame: 2-4 Weeks Goal 3:: Pt feel back to 90% normal with L knee. Goal Time Frame: 2-4 Weeks Goal 4:: LEFS< 33% disability. 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 Rehabilitation Potential: Fair - Anticipated Interventions Patient/Client Instruction: Educate patient on: Condition, Plan of Care For the Purpose of:: To decrease pain, To improve muscle performance and motor function, To increase tolerance to activity/condition/position, To improve ability of physical actions for home/community/work/leisure Therapeutic Exercise to Include: Strength training, Balance training, Flexibilty training, Gait and locomotor training, Neuromotor development, Passive ROM, Active ROM For the Purpose of:: To decrease pain, To improve muscle performance and motor function, To increase tolerance to activity/condition/position, To improve ability of physical actions for home/community/work/leisure, To improve gait and locomotor functions Manual Therapy Techniques to Include: Mobilization, Soft tissue mobilization For the Purpose of:: To decrease pain, To improve muscle performance and motor function TENS: Yes Cryotherapy (ice pack, ice massage): Yes Ultrasound (thermal/non thermal): Yes For the Purpose of:: To decrease pain Thank you for the opportunity to evaluate your patient. For Medicare and Medicare HMO plans, please review the plan of care and approve it. It will need to be FAXED BACK to us at [phone] for Medicare purposes. For Medicare only, by signing this I certify the plan of care. Please let me know if there are questions or concerns regarding this plan of care. Physician Signature: Date:
--- NOTE | 2020-04-10 12:11 | HP.PTREVAL ---
Dr. 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 Please see the progress note below for an update on the physical therapy plan of care! Subjective: lONG TIME OFF DUE TO COVID. Rui mendoza has been good since last session has had no pain. R knee started hurting March 31 after shovelling and climbing ladders as she overdid it one day. Could not walk for 3 days and used crutches. It got better after that. Did RICE and it helped, also used motrin. R knee over this past weekend was still weak and painful later in day after walking 2+ miles around the house. Pain is lateral hip and front of knee up to 3/10 casuing limp. Fibular head R hurts. Sleep is OK. Activities are normal but R leg hurts.R kne 70% better than when hurt adn L is 100% better. Had four trigger fingers released by Dr. Gordon. Objective/Function: L Knee AROM WFL and painfree. Feels great. B knee strength at 4/5. Walks with some minor R antalgia today and is very tender R GT area. Tight in R TFL and gastroc B at 0 DF. Full R knee AROM, HS and quad flex are good. Plan Plan: 3x/week for 2-4 weeks for. R GT area US nonthermal, rollout ITB and gastroc and stretch B gastroc and R ITB. progress to hip strength. New goal for L hip/knee villa approp with fair prognosis Goals Goal 1:: abolish tenderness lateral L knee. Goal Time Frame: 2-4 Weeks Goal Progress: Goal Met Goal 2:: Walk without AD without antalgia Goal Time Frame: 2-4 Weeks Goal Progress: L knee OK, goal for R now Goal 3:: Pt feel back to 90% normal with L knee. Goal Time Frame: 2-4 Weeks Goal Progress: Goal Met Goal 4:: LEFS< 33% disability. Goal Time Frame: 2-4 Weeks, approp Goal 5:: L knee/hip pain 99% better and I in approp EX. Goal Time Frame: 2-4 Weeks Goal Progress: NEW GOAL Anticipated Interventions Patient/Client Instruction: Educate patient on: Condition, Plan of Care For the Purpose of:: To decrease pain, To improve muscle performance and motor function, To increase tolerance to activity/condition/position, To improve ability of physical actions for home/community/work/leisure Therapeutic Exercise to Include: Strength training, Balance training, Flexibilty training, Gait and locomotor training, Neuromotor development, Passive ROM, Active ROM For the Purpose of:: To decrease pain, To improve muscle performance and motor function, To increase tolerance to activity/condition/position, To improve ability of physical actions for home/community/work/leisure, To improve gait and locomotor functions Manual Therapy Techniques to Include: Mobilization, Soft tissue mobilization For the Purpose of:: To decrease pain, To improve muscle performance and motor function TENS: Yes Cryotherapy (ice pack, ice massage): Yes Ultrasound (thermal/non thermal): Yes For the Purpose of:: To decrease pain Please do not hesitate to contact me at [phone] by phone or if you have questions or concerns regarding this new plan of care! Sincerely, Monico Cortez, DPT, OCS, CSCS
--- NOTE | 2020-05-11 11:30 | HP.PTREVAL ---
Dr. 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 Please see the progress note below for an update on the physical therapy plan of care! Subjective: Getting better, no real pain in R knee now. L knee has some pain but flexibility improved on both sides. Fell off rolling chair and hit knee recently and that may be the problem. Sleep is OK. Activities are pretty normal, stairs descending can be problematic. Can ride a bike with son OK. Got massage gun whcih really helps. To doctor next week. Objective/Function: Steps reciprocal without rail, tends to step to with L descending however. AROM B knees symmetrical and full today after stretching without pain. 4/5 knee flexiona dn ext strength. Walks normal today. OVERALL DOING WELL AND FEELS SHE CAN CONTINUE VIA HEP. Plan Plan: F/U FOUR WEEKS TO ENSURE PROGRESS AND D/C IF DOING WELL, PT TO CALL PRIOR IF WORSENS. Goals Goal 1:: abolish tenderness lateral L knee. Goal Time Frame: 2-4 Weeks Goal Progress: Goal Met Goal 2:: Walk without AD without antalgia Goal Time Frame: 2-4 Weeks Goal Progress: Goal Met Goal 3:: Pt feel back to 90% normal with L knee. Goal Time Frame: 2-4 Weeks Goal Progress: Goal Met Goal 4:: LEFS< 33% disability. Goal Time Frame: 2-4 Weeks, approp Goal Progress: Goal Met Goal 5:: L knee/hip pain 99% better and I in approp EX. Goal Time Frame: 2-4 Weeks Goal Progress: Progressing Goal 6:: mAINTIAN IMPROVEMENTS WITH i hep Goal Time Frame: 2-4 Weeks Anticipated Interventions Patient/Client Instruction: Educate patient on: Condition, Plan of Care For the Purpose of:: To decrease pain, To improve muscle performance and motor function, To increase tolerance to activity/condition/position, To improve ability of physical actions for home/community/work/leisure Therapeutic Exercise to Include: Strength training, Balance training, Flexibilty training, Gait and locomotor training, Neuromotor development, Passive ROM, Active ROM For the Purpose of:: To decrease pain, To improve muscle performance and motor function, To increase tolerance to activity/condition/position, To improve ability of physical actions for home/community/work/leisure, To improve gait and locomotor functions Manual Therapy Techniques to Include: Mobilization, Soft tissue mobilization For the Purpose of:: To decrease pain, To improve muscle performance and motor function TENS: Yes Cryotherapy (ice pack, ice massage): Yes Ultrasound (thermal/non thermal): Yes For the Purpose of:: To decrease pain Please do not hesitate to contact me at [phone] by phone or if you have questions or concerns regarding this new plan of care! Sincerely, Monico Cortez, DPT, OCS, CSCS
== END 2020-05-11 19:00 | disposition home or self-care (01) ==
LOC: PT 10:30
PROVIDERS: PCP Family Medicine; Referring Provider Orthopaedic Surgery; Visit Provider Orthopaedic Surgery
DX: M76.32 Iliotibial band syndrome, left leg (principal); S83.282D Other tear of lateral meniscus, current injury, left knee, subsequent encounter
CPT/HCPCS: 97035; 97110; 97140; 97161; 97164

== ENCOUNTER → 2020-09-25 17:26 | Outpatient (CLI) | payer BC, SELFPAY ==
[2020-05-16 12:40] VITALS: BMI 34.4
== END ==
PROVIDERS: PCP Family Medicine; Referring Provider Family Medicine; Visit Provider Family Medicine
DX: Z03.818 Encounter for observation for suspected exposure to other biological agents ruled out (principal)
CPT/HCPCS: 87635; C9803; U0003

== ENCOUNTER → 2020-12-07 06:51 | Outpatient (CLI) | payer BC, SELFPAY ==
[2020-05-16 12:40] VITALS: BMI 34.4
[2020-12-07 07:20] LABS: Absolute Lymphocyte Count 2.72 X10^3/uL (0.83-4.51); Absolute Neutrophil Count 4.2 X10^3/uL (2.0-7.7); Basophil# 0.09 X10^3/uL; Basophil% 1.1 % (0-1); Eosinophils% 3.8 % (0-5); Hematocrit 42.4 % (37-47); Hemoglobin 13.7 g/dL (12.0-15.0); Lymphocyte # 2.72 X10^3/ul (4.0); Lymphocyte % 34.3 % (19-41); Mean Corp Hgb Conc 32.3 g/dL (32-36); Mean Corpuscular Hgb 29.1 pg (27.0-32.0); Mean Corpuscular Volume 90.2 fL (81-99); Mean Platelet Vol. 8.6 fl (6.2-12.0); Monocyte# 0.56 X10^3/uL; Monocyte% 7.1 % (0-10); NRBC Flagged by Analyzer 0 % (0-5); Neutrophil # 4.18 X10^3/uL (2.7-7.7); Neutrophil % 52.8 % (47-70); Platelet Count 465 K/mm3 (150-450); RBC Distribution Width CV 12.7 % (11.6-14.6); RBC Distribution Width SD 41.9 fl (35.1-43.9); White Blood Count 7.9 K/mm3 (4.4-11.0)
[2020-12-07 08:10] LABS: ALB/GLOB Ratio 1.1 RATIO (0.9-2.4); AST(SGOT) 17 U/L (15-37); Alanine Aminotransfer ALT/SGPT 38 U/L (13-56); Alkaline Phosphatase 137 U/L (45-117); Anion Gap 5 (5-15); BUN 13 mg/dL (7-18); BUN/Creat Ratio 16.4 RATIO (10-20); Calcium,Total 9.6 mg/dL (8.5-10.1); Chloride 104 mmol/L (98-107); Cholesterol 161 mg/dL (200); EST Glomerular Filtration Rate 79 mL/min (>60); Est Glom Filt Rate - Afr Amer 96 mL/min (>60); Globulin 3.7 g/dL (2.2-4.2); Glucose 107 mg/dL (74-106); High Density Lipoprotein 38 mg/dL; Potassium 4.4 mmol/L (3.5-5.1); Protein, Total 7.7 g/dL (6.4-8.2); Sodium Level 139 mmol/L (136-145); Triglycerides 229 mg/dL; Very Low Density Lipoprotein 46 mg/dL (5-40)
[2020-12-07 13:07] LABS: Hemoglobin A1c 5.5 % (3.8-5.6)
== END ==
PROVIDERS: PCP Family Medicine; Referring Provider Family Medicine; Visit Provider Family Medicine
DX: Z00.00 Encounter for general adult medical examination without abnormal findings (principal); R73.01 Impaired fasting glucose
CPT/HCPCS: 36415; 80053; 80061; 83036; 85025

== ENCOUNTER → 2021-08-21 14:01 | Outpatient (CLI) | payer BC, SELFPAY ==
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
== END ==
PROVIDERS: PCP Family Medicine; Referring Provider Physician Assistant Surgical; Visit Provider Physician Assistant Surgical
DX: S69.91XA Unspecified injury of right wrist, hand and finger(s), initial encounter (principal)
CPT/HCPCS: 73140

== ENCOUNTER 2021-11-23 10:30 | Outpatient (CLI) | payer BC, SELFPAY ==
--- NOTE | 2021-11-23 10:31 | BI_ITS ---
MAMMOGRAPHY - BILATERAL SCREENING REASON FOR EXAM: Female, 56 years old. Routine annual screening examination. PERTINENT HISTORY: Non-contributory. TECHNIQUE: Digital bilateral breast faby (3D mammographic acquisition) in the CC and MLO projections. 2-D mediolateral oblique (MLO) and craniocaudad (CC) views of both breasts were obtained. CAD: Full Field Digital Mammography with Computer Added Detection was performed. COMPARISON: Comparison is made with prior study dated 10/23/2019 and 01/01/2019. FINDINGS: Breast Composition: There are scattered areas of fibroglandular density. There are no dominant masses or suspicious calcifications. Stable small benign-appearing bilateral axillary nodes. No other significant abnormalities are identified. There has been no significant change since the prior study. BI/SCRN MAMM (CAD)W/FABY BILAT IMPRESSION: Stable bilateral screening mammogram. Yearly follow-up mammogram recommended. (A) ASSESSMENT CATEGORY: BIRADS Category 2: Benign. A letter regarding these results will be sent to the patient by the facility within 30 days. Approximately 10% of breast cancers are not detected by mammography. A normal mammogram should not delay biopsy of a clinically suspicious abnormality. [id number] Electronically Signed: Daniele Mckenzie MD at 12:51 EST ,
== END 2021-11-23 23:59 | disposition home or self-care (01) ==
LOC: OPBI 10:30
PROVIDERS: PCP Family Medicine; Referring Provider Family Medicine; Visit Provider Family Medicine
DX: Z12.31 Encounter for screening mammogram for malignant neoplasm of breast (principal)
CPT/HCPCS: 77063; 77067

== ENCOUNTER 2022-01-23 13:00 | Outpatient (CLI) | payer BC, SELFPAY ==
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
== END 2022-01-23 23:59 | disposition home or self-care (01) ==
PROVIDERS: PCP Family Medicine; Referring Provider Family Medicine; Visit Provider Family Medicine
DX: M53.3 Sacrococcygeal disorders, not elsewhere classified (principal)
CPT/HCPCS: 72220

== ENCOUNTER → 2022-03-30 | Outpatient (CLI) | payer BC, SELFPAY ==
[2022-03-30 07:41] LABS: Absolute Neutrophil Count 3.9 X10^3/uL (2.0-7.7); Basophil# 0.11 X10^3/uL; Basophil% 1.5 % (0-1); Eosinophil# 0.32 X10^3/uL; Eosinophils% 4.4 % (0-5); Hematocrit 40.5 % (37-47); Hemoglobin 13.6 g/dL (12.0-15.0); Lymphocyte % 32.8 % (19-41); Mean Corp Hgb Conc 33.6 g/dL (32-36); Mean Corpuscular Hgb 29.9 pg (27.0-32.0); Mean Platelet Vol. 8.8 fl (6.2-12.0); Monocyte# 0.52 X10^3/uL; Monocyte% 7.1 % (0-10); NRBC Flagged by Analyzer 0 % (0-5); Neutrophil # 3.94 X10^3/uL (2.7-7.7); Neutrophil % 53.8 % (47-70); Platelet Count 393 K/mm3 (150-450); RBC Distribution Width CV 13.1 % (11.6-14.6); RBC Distribution Width SD 42.5 fl (35.1-43.9); Red Blood Count 4.55 M/mm3 (4.2-5.4); White Blood Count 7.3 K/mm3 (4.4-11.0)
[2022-03-30 08:12] LABS: ALB/GLOB Ratio 1.1 RATIO (0.9-2.4); AST(SGOT) 16 U/L (15-37); Alanine Aminotransfer ALT/SGPT 33 U/L (13-56); Alkaline Phosphatase 74 U/L (45-117); Anion Gap 6 (5-15); BUN 14 mg/dL (7-18); BUN/Creat Ratio 19.8 RATIO (10-20); Calcium,Total 9.6 mg/dL (8.5-10.1); Chloride 104 mmol/L (98-107); Cholesterol 153 mg/dL (200); Creatinine, Serum 0.71 mg/dL (0.55-1.02); EST Glomerular Filtration Rate 90 mL/min (>60); Est Glom Filt Rate - Afr Amer 109 mL/min (>60); Globulin 3.7 g/dL (2.2-4.2); Glucose 107 mg/dL (74-106); High Density Lipoprotein 38 mg/dL; Potassium 4.3 mmol/L (3.5-5.1); Protein, Total 7.7 g/dL (6.4-8.2); Sodium Level 137 mmol/L (136-145); Triglycerides 227 mg/dL; Very Low Density Lipoprotein 45 mg/dL (5-40)
[2022-03-30 09:02] LABS: Hemoglobin A1c 5.6 % (3.8-5.6)
== END | disposition home or self-care (01) ==
LOC: LAB 07:04
PROVIDERS: PCP Family Medicine; Referring Provider Family Medicine; Visit Provider Family Medicine
DX: Z00.00 Encounter for general adult medical examination without abnormal findings (principal); R73.01 Impaired fasting glucose
CPT/HCPCS: 36415; 80053; 80061; 83036; 85025

== ENCOUNTER → 2023-02-06 | Outpatient (CLI) | payer MEDICAID, SELFPAY ==
--- NOTE | 2023-02-06 08:39 | BI_ITS ---
MAMMOGRAPHY - BILATERAL SCREENING REASON FOR EXAM: Female, 57 years old. Routine annual screening examination. PERTINENT HISTORY: Non-contributory. TECHNIQUE: Digital bilateral breast faby (3D mammographic acquisition) in the CC and MLO projections. 2-D mediolateral oblique (MLO) and craniocaudad (CC) views of both breasts were obtained. CAD: Full Field Digital Mammography with Computer Added Detection was performed. COMPARISON: Comparison is made with prior study dated November 23, 2021 and October 23, 2019. FINDINGS: Breast Composition: There are scattered areas of fibroglandular density. There are no dominant masses or suspicious calcifications. Stable small benign-appearing bilateral axillary lymph nodes. No other significant abnormalities are identified. There has been no significant change since the prior study. BI/SCRN MAMM (CAD)W/FABY BILAT IMPRESSION: Stable bilateral screening mammogram. Yearly follow-up mammogram recommended. (A) ASSESSMENT CATEGORY: BIRADS Category 2: Benign. A letter regarding these results will be sent to the patient by the facility within 30 days. Approximately 10% of breast cancers are not detected by mammography. A normal mammogram should not delay biopsy of a clinically suspicious abnormality. [id number] Electronically Signed: Daniele Mckenzie MD at 9:40 EDT ,
== END | disposition home or self-care (01) ==
PROVIDERS: PCP Family Medicine; Referring Provider Family Medicine; Visit Provider Family Medicine
DX: Z12.31 Encounter for screening mammogram for malignant neoplasm of breast (principal)
CPT/HCPCS: 77063; 77067

== ENCOUNTER → 2023-03-17 | Outpatient (CLI) | payer MEDICAID, SELFPAY ==
[2023-03-17 07:31] LABS: Absolute Neutrophil Count 3.6 X10^3/uL (2.0-7.7); Basophil# 0.09 X10^3/uL; Basophil% 1.2 % (0-1); Eosinophil# 0.43 X10^3/uL; Eosinophils% 5.9 % (0-5); Hematocrit 40.9 % (37-47); Hemoglobin 13.3 g/dL (12.0-15.0); Lymphocyte % 35.9 % (19-41); Mean Corp Hgb Conc 32.5 g/dL (32-36); Mean Corpuscular Hgb 29.9 pg (27.0-32.0); Mean Corpuscular Volume 91.9 fL (81-99); Mean Platelet Vol. 8.8 fl (6.2-12.0); Monocyte# 0.47 X10^3/uL; Monocyte% 6.5 % (0-10); NRBC Flagged by Analyzer 0 % (0-5); Neutrophil # 3.62 X10^3/uL (2.7-7.7); Neutrophil % 50.1 % (47-70); Platelet Count 409 K/mm3 (150-450); RBC Distribution Width CV 12.6 % (11.6-14.6); RBC Distribution Width SD 42.2 fl (35.1-43.9); Red Blood Count 4.45 M/mm3 (4.2-5.4); White Blood Count 7.2 K/mm3 (4.4-11.0)
[2023-03-17 08:21] LABS: ALB/GLOB Ratio 1.1 RATIO (0.9-2.4); AST(SGOT) 15 U/L (15-37); Alanine Aminotransfer ALT/SGPT 29 U/L (13-56); Alkaline Phosphatase 76 U/L (45-117); Anion Gap 6 (5-15); BUN 14 mg/dL (7-18); BUN/Creat Ratio 19.9 RATIO (10-20); Calcium,Total 9.4 mg/dL (8.5-10.1); Chloride 105 mmol/L (98-107); Cholesterol 158 mg/dL (200); EST Glomerular Filtration Rate 91 mL/min (>60); Est Glom Filt Rate - Afr Amer 110 mL/min (>60); Globulin 3.7 g/dL (2.2-4.2); Glucose 104 mg/dL (74-106); High Density Lipoprotein 39 mg/dL; Potassium 3.9 mmol/L (3.5-5.1); Protein, Total 7.7 g/dL (6.4-8.2); Sodium Level 139 mmol/L (136-145); Triglycerides 224 mg/dL; Very Low Density Lipoprotein 45 mg/dL (5-40)
[2023-03-17 09:47] LABS: Hemoglobin A1c 5.5 % (3.8-5.6)
== END | disposition home or self-care (01) ==
LOC: LAB 06:56
PROVIDERS: PCP Family Medicine; Referring Provider Family Medicine; Visit Provider Family Medicine
DX: Z00.00 Encounter for general adult medical examination without abnormal findings (principal)
CPT/HCPCS: 36415; 80053; 80061; 83036; 85025

== ENCOUNTER → 2024-07-14 | Outpatient (CLI) | payer OTHER, SELFPAY ==
--- NOTE | 2024-07-14 10:50 | BI_ITS ---
MAMMOGRAPHY - BILATERAL SCREENING REASON FOR EXAM: Female, 59 years old. Routine annual screening examination. PERTINENT HISTORY: Non-contributory. TECHNIQUE: Digital bilateral breast faby (3D mammographic acquisition) in the CC and MLO projections. 2-D mediolateral oblique (MLO) and craniocaudad (CC) views of both breasts were obtained. CAD: Full Field Digital Mammography with Computer Added Detection was performed. COMPARISON: Comparison is made with prior study February 06, 2023 and November 23, 2021. FINDINGS: Breast Composition: There are scattered areas of fibroglandular density. Focal area of nodularity/architectural distortion is seen in the slightly upper central portion of the right breast. Correlation with ultrasound is recommended. This is new as compared to prior study. Stable bilateral fat containing axillary lymph nodes. No other significant abnormalities are identified. BI/SCRN MAMM (CAD)W/FABY BILAT IMPRESSION: Focal area of architectural distortion/nodularity in the slightly upper central portion of the right breast. This measures 1.7 cm. Correlation with ultrasound recommended. ASSESSMENT CATEGORY: BIRADS Category 0: Incomplete. Need additional imaging evaluation. A letter regarding these results will be sent to the patient by the facility within 30 days. Approximately 10% of breast cancers are not detected by mammography. A normal mammogram should not delay biopsy of a clinically suspicious abnormality. [id number] Electronically Signed: Daniele Mckenzie MD at 11:43 EDT ,
== END | disposition home or self-care (01) ==
LOC: OPBI 10:48
PROVIDERS: PCP Family Medicine; Referring Provider Family Medicine; Visit Provider Family Medicine
DX: Z12.31 Encounter for screening mammogram for malignant neoplasm of breast (principal)
CPT/HCPCS: 77063; 77067

== ENCOUNTER → 2024-07-16 | Outpatient (CLI) | payer OTHER, SELFPAY ==
--- NOTE | 2024-07-16 12:26 | US_ITS ---
STUDY: ULTRASOUND BREAST - RIGHT REASON FOR EXAM: Female, 59 years old. Abnormal screening mammogram. TECHNIQUE: Axial and longitudinal images of the RIGHT breast were performed with a high resolution ultrasound transducer. # OF IMAGES: 21 COMPARISON: Comparison is made with prior mammogram dated July 14, 2024. FINDINGS: RIGHT Breast: The upper-outer quadrant of the right breast was examined with ultrasound. There is a 1 cm x 0.9 cm x 0.9 cm hypoechoic irregular nodule taller than wide at the 11:00 position breast at 7 cm from the nipple. Biopsy recommended. US/Breast Limited Unilateral IMPRESSION: 1 cm x 0.9 cm x 0.9 cm hypoechoic irregular nodule taller than wide at 11:00 position of the breast at 7 cm from the nipple. Biopsy recommended. ASSESSMENT CATEGORY: BIRADS Category 4: Suspicious - Biopsy Should Be Considered. A letter regarding these results will be sent to the patient by the facility within 30 days. Electronically Signed: Daniele Mckenzie MD at 13:38 EDT ,
== END | disposition home or self-care (01) ==
PROVIDERS: PCP Family Medicine; Referring Provider Family Medicine; Visit Provider Family Medicine
DX: N63.11 Unspecified lump in the right breast, upper outer quadrant (principal)
CPT/HCPCS: 76642

== ENCOUNTER → 2024-07-29 | Outpatient (CLI) | payer OTHER, SELFPAY ==
--- NOTE | 2024-07-29 | IMM_PTH ---
PATIENT: MARCELLA JACOBS LOC: [facility] U#:[id number] AGE/SX: 59/F ROOM: RE07/29/[address]: Dr. Sam Contreras MD : 1965 BED: DIS: 07/29/2024 SPEC #: [id number] RECD: 07/30/24 10:55 STATUS: SOUMaddi REQ #: [id number] RAVEN: 07/29/24 00:[address]: Sam Contreras DEPT: IMMUNOHISTOCHEMISTRY RECD BY: Oliver Lowe ENTERED: 07/30/24 10:56 SP TYPE: IMMUNO OTHR DR: Dr. Lucas Infante DO Tissues: Skin of forearm, NOS Procedures: SMA (add) CD31 (add) CD34 (add) DESMIN (add) KI-67 (add) P53 (add) Vimentin (add) NEUROFIL (add) Pankeratin (initial) CD68 (ADD) S-100 (add) PHYSICIAN & INSTITUTION [place] [id number] SPECIMEN INFORMATION: Tissue Source: Left forearm lesion Clinical Info: Skin lesion Specimen Number: [id number] CPT code: 45717,12354w32 METHODOLOGY: Deparaffinized sections of prefer/formalin-fixed tissue or PAP/DQ stained slides are incubated with monoclonal/polyclonal antibodies/oligonucleotide probes. Localization is made via biotin free immunoperoxidase method. Appropriate controls are performed and reacted as expected. Results on target cell population are indicated in the following table: RESULTS: ANTIBODY / CLONE RESULT AE1-3 (AE1/AE3/PCK26) negative Vimentin (V9) positive CD31 (SYDNEE/70A) negative CD34 (QBEnd-10) negative CD68 (KP-1) positive Actin (1A4) negative Desmin (CE-R-11) negative S-100 (4C4.9) negative Neurofil (2F11) negative P53 (DO-7) positive, wild type Ki-67 (30-9) positive, rare cells These tests were developed and their performance characteristics determined by [facility]. They may not have been cleared or approved by the [place]. Food and Drug Administration. The FDA has determined that such clearance or approval is not necessary. The above immunohistochemical/dualISH markers are ordered and reviewed by the Pathologist. INTERPRETATION: Skin lesion of left forearm, punch biopsy: Consistent with benign fibrous histiocytoma (dermatofibroma). AM 08/02/2024
--- NOTE | 2024-07-29 10:30 | LES_PTH ---
PATIENT: MARCELLA JACOBS LOC: [facility] U#:[id number] AGE/SX: 59/F ROOM: RE07/29/[address]: Dr. Sam Contreras MD : 1965 BED: DIS: 07/29/2024 SPEC #: [id number] RECD: 07/29/24 10:51 STATUS: CHRISTINE FUNMILAYO #: [id number] RAVEN: 07/29/24 10:[address]: Sam Contreras DEPT: SURGICAL PATHOLOGY RECD BY: Jaime Ch ENTERED: 07/29/24 12:13 SP TYPE: Lesion OTHR DR: Dr. Lucas Infante, DO Tissues: Skin of forearm, NOS Procedures: Surgery Specimen Level IV HEADER OPERATION: Punch biopsy PRE-OP DIAGNOSIS: Skin lesion TISSUE SUBMITTED: Left forearm / skin lesion MICROSCOPIC DIAGNOSIS Skin lesion of left forearm, punch biopsy: Mild actinic change and solar elastosis. 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 See comment. 07/30/2024 COMMENT Immunohistochemistry ([id number]) supports the above diagnosis. Case has been reviewed in consultation with Dr. Rosario who concurs with the above diagnosis. IDC:[email or web address] MICROSCOPIC DESCRIPTION Slides are reviewed. GROSS DESCRIPTION Received is one container labeled with the patient's name and not further designated. The specimen consists of a punch biopsy of segura-white skin measuring 0.5cm in diameter and 0.4cm in length. This specimen is inked, bisected and submitted entirely in one cassette. 07/29/2024 TC:5 CPT:27807
== END | disposition home or self-care (01) ==
LOC: LABSPEC 10:56
PROVIDERS: PCP Family Medicine; Referring Provider Surgery Plastic and Reconstructive Surgery; Visit Provider Surgery Plastic and Reconstructive Surgery
DX: D23.62 Other benign neoplasm of skin of left upper limb, including shoulder (principal); L57.8 Other skin changes due to chronic exposure to nonionizing radiation
CPT/HCPCS: 88305; 88341; 88342

== ENCOUNTER → 2024-08-09 | Outpatient (CLI) | payer OTHER, SELFPAY ==
--- OUTSIDE RECORDS SUMMARY | 2024-08-09 08:17 | XMS RPT_ITS | CCD ---
Author Organization [facility] Care Team Providers Care Air Lift Operator Name Role Phone TAMIE MUKHERJEE Attending Unavailable YAZTAMIE BAKER Primary Care Unavailable YAZTAMIE BAKER Admitting Unavailable YAZTAMIE BAKER Attending Unavailable YAZTAMIE BAKER Primary Care Unavailable YAZTAMIE BAKER Admitting Unavailable Bryce Cleary ([facility]) Primary Care Provider Bryce Cleary (Hist) Primary Care Provider [facility] Primary Care Provider Unavailable BRYCE CLEARY (HIST) Primary Care Unavail able PROVIDER, UNKNOWN Admitting Unavailable PROVIDER, UNKNOWN Attending Unavailable BRYCE CLEARY (HIST) Primary Care Unavail able Bryce Cleary (Hist) Primary Care Provider CATIA BARR Attending Unavailable BRYCE CLEARY ([facility]) Primary Care Unavail able SHARON CHAMPION Attending Unavailab MICHELINE Mercado Attending Unavailable CATIA BARR Referring Unavailable SHARON CHAMPION Referring Unavailab le SHARON CHAMPION Attending Unavailab SHARON Chambers Referring Unavailab le SHARON CHAMPION Attending Unavailab BRYCE Silverman ([facility]) Primary Care Unavail able BRYCE CLEARY ([facility]) Primary Care Unavail able MARY HAMLIN Attending Unavailable UNIQUE GALLARDO Referring Unavailable ALEKSANDR INFANTE Primary Care Unavailable ALEKSANDR INFANTE Attending Unavailable ALEKSANDR INFANTE Primary Care Unavailable SELF, SELF Referring Unavailable UNIQUE GALLARDO Attending Unavailable SELF, SELF Referring Unavailable UNIQUE GALLARDO Attending Unavailable UNIQUE GALLARDO Attending Unavailable UNIQUE GALLARDO Referring Unavailable Unavailable Primary Care Provider UnavailAleksandr Moreno DO Primary Care Provider Allergies Allergy Classification Reported Allergen(s) Allergy Type Date of Onset Reaction(s) Facility Contrast Media (1 source) Contrast media Substance Allergy 08-04-20 [facility] Opioid Agonists (1 source) Codeine Drug Allergy 06-03-20 06 Shortness of Breath [facility] Penicillins (antibiotic) (1 source) Penicillins Drug Allergy 06-03-20 06 Shortness of Breath [facility] Sulfonamides (antibiotic) (1 source) Sulfonamides (Antibiotic) Drug Allergy 06-03-20 06 Shortness of Breath [facility] Tetracyclines (antibiotic) (1 source) Oxytetracycline Drug Allergy 06-03-20 06 Shortness of Breath [facility] (15 sources) Codeine; Translations: [CODEINE] Drug Allergy 06-03-20 06 Shortness of Breath, Dyspnea [facility] (12 sources) Contrast media; Translations: [CONTRAST DYE] Propensity to adverse reactions 08-04-20 06 [facility] (12 sources) Oxytetracycline; Translations: [OXYTETRACYCLINE] Drug Allergy 06-03-20 06 Shortness of Breath [facility] (12 sources) Penicillins; Translations: [PENICILLINS] Propensity to adverse reactions 06-03-20 06 Shortness of Breath [facility] (15 sources) Sulfonamides (Antibiotic); Translations: [SULFA (SULFONAMIDE ANTIBIOTICS)] Propensity to adverse reactions 06-03-20 06 Shortness of Breath, Dyspnea [facility] (3 sources) Diatrizoate Drug Allergy 08-04-20 06 [facility] (3 sources) Oxytetracycline Drug Allergy 06-03-[address] [facility] (3 sources) Penicillins Propensity to adverse reactions to drug 06-03-[address] [facility] Medications Current Medications Medication Drug Class(es) Dates Sig (Normalized) Sig (Original) Calcium (8 sources) Phosphate Binder, Calcium Calcium 200 MG table t Take 1,200 mg by mouth daily. Active CALCIUM ORAL Dima e 1,200 mg by mouth. Active CALCIUM ORAL Dima e 1,200 mg by mouth. 0 Active calcium carbonate 1500 mg oral tablet (11 sources) take 1 tablet by mouth once daily calcium carbonate (CALTRATE 600) 600 mg (1,500 mg) tab Take 600 mg by mouth once daily. Active Comment on above: Take 600 mg by mouth once daily. fluticasone (8 sources) Corticosteroid take 2 puff(s) by inhalation every twelve hours fluticasone 110 MCG/ACT Aerosol inhaler Inhale 2 puffs every 12 hours. Active fluticasone prop ionate (FLOVENT DISKUS INHALATION) Inhale as instructed. Active fluticasone prop ionate (FLOVENT DISKUS INHALATION) Inhale as instructed. 0 Active nitrofurantoin, macrocrystals 100 mg oral capsule (3 sources) Nitrofuran Antibacterial Start: 06-12-2024 take 1 capsule by mouth at bedtime nitrofurantoin 100 MG capsule Take 1 capsule by mouth at bedtime. 06/12/2024 Active nitrofurantoin, macrocrystals 25 mg / nitrofurantoin, monohydrate 75 mg oral capsule (11 sources) Nitrofuran Antibacterial Start: 04-10-2017 nitrofurantoin monohydrate and macrocrystal (MACROBID) 100 mg capsule TAKE 1 CAPSULE TWICE A DAY 180 capsule 3 04/10/2017 Active Comment on above: TAKE 1 CAPSULE TWICE A DAY pravastatin sodium 20 mg oral tablet (11 sources) HMG-CoA Reductase Inhibitor Start: 05-09-2011 take 2 tablets by mouth once daily at bedtime pravastatin (PRAVACHOL) 20 mg ORAL tablet Take 40 mg by mouth daily at bedtime. 0 05/09/2011 Active Comment on above: Take 40 mg by mouth daily at bedtime. ubidecarenone 100 mg / vitamin e 5 unt oral capsule (3 sources) Coenzyme Q10 (Co Q10) 100 MG capsule Take 2 capsules by mouth daily. Active ubidecarenone/vitamin E mixed (COQ10 SG 100 ORAL) (5 sources) ubidecarenone/vi pineda in E mixed (COQ10 SG 100 ORAL) Take by mouth. Active ubidecarenone/vi tamin E mixed (COQ10 SG 100 ORAL) Take by mouth. 0 Active Completed/Discontinued Medications Medication Drug Class(es) Dates Sig (Normalized) Sig (Original) Budesonide / formoterol (7 sources) Corticosteroid, beta2-Adrenergic Agonist End: 04-07-2024 take 2 puff(s) by inhalation twice daily budesonide-formoter ol (SYMBICORT) 80-4.5 mcg/actuation inhaler Inhale 2 Puffs as instructed twice daily. 04/07/2024 Discontinued End: 04-07-2024 take 2 puff(s) by inhalation twice daily budesonide-formoterol (SYMBICORT) 80-4.5 mcg/actuation inhaler Inhale 2 Puffs as instructed twice daily. 0 04/07/2024 Discontinued take 2 puff(s) by in halation twice daily budesonide-formoterol (SYMBICORT) 80-4.5 mcg/actuation inhaler Inhale 2 Puffs as instructed twice daily. 0 Active Comment on above: Inhale 2 Puffs as in structed twice daily. 24 hr mirabegron 50 mg extended release oral tablet (7 sources) beta3-Adrenergic Agonist Start: 6 End: 4 take 1 tablet by mouth once daily MYRBETRIQ 50 mg Tb24 Take 50 mg by mouth once daily. 90 tablet 1 10/30/2015 04/07/2024 Discontinued Comment on above: Take 50 mg by mouth once daily. solifenacin succinate 5 mg oral tablet (7 sources) Cholinergic Muscarinic Antagonist Start: 6 End: 4 take 1 tablet by mouth once daily solifenacin (VESICARE) 5 mg tablet Indications: Urinary frequency , Urinary tract infection, site not specified Take 1 tablet by mouth once daily. 90 tablet 3 05/24/2016 04/07/2024 Discontinued Comment on above: Take 1 tablet by ann th once daily. Problems Active Problems Problem Classification Problem Date Documented Date Episodic/Chronic Asthma (6 sources) Mild intermittent asthma; Translations: [Mild intermittent asthma, uncomplicated] Onset: 04-07-2024 04-07-2024 Chronic Disorders of lipid metabolism (6 sources) Mixed hyperlipidemia; Translations: [Mixed hyperlipidemia] Onset: 04-07-2024 04-07-2024 Chronic Gastritis and duodenitis (20 sources) Gastritis; Translations: [Other gastritis without bleeding] Onset: 08-04-2006 08-04-2006 Episodic Other aftercare (2 sources) Encounter for follow-up examination after completed treatment for conditions other than malignant neoplasm; Translations: [Encounter for follow-up examination after completed treatment for conditions other than malignant neoplasm] Onset: 07-22-2024 Episodic Other aftercare (1 source) Patient encounter status; Translations: [Encounter for follow-up examination after completed treatment for conditions other than malignant neoplasm] 07-22-2024 Episodic Other connective tissue disease (2 sources) Trigger thumb of left hand; Translations: [Trigger thumb, left thumb] 06-17-2024 Episodic Other ear and sense organ disorders (1 source) Hearing loss; Translations: [Other specified hearing loss, unspecified ear] 12-15-2023 Chronic Other ear and sense organ disorders (13 sources) Sensorineural hearing loss, bilateral; Translations: [Sensorineural hearing loss, bilateral] Onset: 03-05-2024 03-05-2024 Chronic Other nervous system disorders (1 source) Other acute postprocedural pain; Translations: [Postoperative pain] Onset: 04-08-2024 Episodic Other nutritional; endocrine; and metabolic disorders (6 sources) Obesity caused by energy imbalance; Translations: [Other obesity due to excess calories] Onset: 04-07-2024 04-07-2024 Chronic Other screening for suspected conditions (not mental disorders or infectious disease) (4 sources) Other abnormal and inconclusive findings on diagnostic imaging of breast; Translations: [Abnormal findings on diagnostic imaging of breast] Onset: 07-22-2024 Episodic Residual codes; unclassified (1 source) Pain, unspecified; Translations: [Pain] Onset: 03-31-2024 Episodic Residual codes; unclassified (1 source) Pain; Translations: [Pain, unspecified] 03-31-2024 Episodic Past or Other Problems Problem Classification Problem Date Documented Date Episodic/Chronic Abdominal hernia (11 sources) Diaphragmatic hernia; Translations: [Diaphragmatic hernia without obstruction or gangrene] Onset: 08-04-2006 08-04-2006 Episodic Abdominal pain (11 sources) Epigastric pain; Translations: [Epigastric pain] Onset: 06-20-2006 06-20-2006 Episodic Genitourinary symptoms and ill-defined conditions (11 sources) Microscopic hematuria; Translations: [Other microscopic hematuria] Onset: 05-09-2011 05-09-2011 Episodic Mood disorders (3 sources) Mood disorders Onset: 07-22-2024 07-22-2024 Other connective tissue disease (7 sources) Triggering of digit; Translations: [Trigger finger, right middle finger] Onset: 04-08-2024 Resolved: 04-08-2024 03-31-2024 Episodic Urinary tract infections (6 sources) Recurrent urinary tract infection; Translations: [Urinary tract infection, site not specified] Onset: 04-07-2024 04-07-2024 Episodic Results Test Name Value Interpretation Reference Range Facility MAMMO DIAGNOSTIC WITH FABY R JUAN DAVIDTon 07-22-2024 MAMMO DIAGNOSTIC WITH FABY RIGHT EXAM: MAMMO DIAGNOSTIC WITH FABY RIGHT, US BREAST LIMITED UNILATERAL RIGHT, 07/22/2024 11:48 AM (accession [id number]), 07/22/2024 13:06 PM (accession [id number]) CLINICAL INDICATIONS AND HISTORY: outside BR 4 - second op by Dr. López R92.8:Abnormal finding on breast imaging The patient presents for further evaluation of findings identified on review of outside breast imaging. Outside institution noted suspicious findings in the right breast for which biopsy was suggested however were not readily apparent on second opinion review of outside breast imaging. The patient presents for additional imaging to clarify the suspicious findings described the outside institution. COMPARISON: July 16, 2024, July 14, 2024, February 06, 2023, November 23, 2021, October 23, 2019, January 01, 2019 MAMMOGRAM TECHNIQUE: 2-D ML, CC, MLO, and spot compression MLO and CC views were obtained of the right breast. 3-D digital tomosynthesis images were also acquired in the same projections. Computer aided detection was utilized. MAMMOGRAPHIC FINDINGS: Breast Density: The breasts have scattered areas of fibroglandular density. The additional diagnostic views of the right breast did not confirm evidence of persistent architectural distortion in the upper central right breast as described in the outside institution. The area of interest has a similar mammographic appearance dating back to 2018. No dominant mass, distortion, or suspicious microcalcification in the right breast. Ultrasound was pursued for further clarification of the outside imaging findings. ULTRASOUND TECHNIQUE: Multiple real-time bradshaw-scale images of the right breast in the 11 o'clock axis are performed. Color Doppler was used to assess vascular flow. ULTRASOUND FINDINGS: There is no evidence of mass lesions, architectural distortion, or abnormal blood flow. Only normal-appearing tissues are noted. The reported hypoechoic irregular nodule is not reproducible. IMPRESSION: No specific mammographic or sonographic evidence of malignancy in the right breast. BI-RADS: 1: Negative Recommendation: Routine mammography. Recommendation Laterality: Bilateral MQSA Facility: [facility], [address] [place] [id number], Table formatting from the original result was not included. MAMMO STANDARD RISK MQSA SITE BEGIN [facility] [address] [place] [address] MQSA SITE END [facility] MG Breast - right Diagnostic on 07-22-2024 Dallas López M D - 07/22/2024 EXAM: MAMMO DIAGNOSTIC WITH FABY RIGHT, US BREAST LIMITED UNILATERAL RIGHT, 07/22/2024 11:48 AM (accession [id number]), 07/22/2024 13:06 PM (accession [id number]) CLINICAL INDICATIONS AND HISTORY: outside BR 4 - second op by Dr. López R92.8:Abnormal finding on breast imaging The patient presents for further evaluation of findings identified on review of outside breast imaging. Outside institution noted suspicious findings in the right breast for which biopsy was suggested however were not readily apparent on second opinion review of outside breast imaging. The patient presents for additional imaging to clarify the suspicious findings described the outside institution. COMPARISON: July 16, 2024, July 14, 2024, February 06, 2023, November 23, 2021, October 23, 2019, January 01, 2019 MAMMOGRAM TECHNIQUE: 2-D ML, CC, MLO, and spot compression MLO and CC views were obtained of the right breast. 3-D digital tomosynthesis images were also acquired in the same projections. Computer aided detection was utilized. MAMMOGRAPHIC FINDINGS: Breast Density: The breasts have scattered areas of fibroglandular density. The additional diagnostic views of the right breast did not confirm evidence of persistent architectural distortion in the upper central right breast as described in the outside institution. The area of interest has a similar mammographic appearance dating back to 2018. No dominant mass, distortion, or suspicious microcalcification in the right breast. Ultrasound was pursued for further clarification of the outside imaging findings. ULTRASOUND TECHNIQUE: Multiple real-time bradshaw-scale images of the right breast in the 11 o'clock axis are performed. Color Doppler was used to assess vascular flow. ULTRASOUND FINDINGS: There is no evidence of mass lesions, architectural distortion, or abnormal blood flow. Only normal-appearing tissues are noted. The reported hypoechoic irregular nodule is not reproducible. IMPRESSION IMPRESSION: No specific mammographic or sonographic evidence of malignancy in the right breast. BI-RADS: 1: Negative Recommendation: Routine mammography. Recommendation Laterality: Bilateral MQSA Facility: [facility], [address] [place] [address], [facility] Radiology Study observation (narrative) [facility] No Panel Informationon 07-22 IMPRESSION: No specific mammographic or sonographic evidence of malignancy in the right breast. BI-RADS: 1: Negative Recommendation: Routine mammography. Recommendation Laterality: Bilateral MQSA Facility: [facility], [address] [place] [address], [facility] EXAM: MAMMO DIAGNOST IC WITH FABY RIGHT, US BREAST LIMITED UNILATERAL RIGHT, 07/22/2024 11:48 AM (accession [id number]), 07/22/2024 13:06 PM (accession [id number]) CLINICAL INDICATIONS AND HISTORY: outside BR 4 - second op by Dr. López R92.8:Abnormal finding on breast imaging The patient presents for further evaluation of findings identified on review of outside breast imaging. Outside institution noted suspicious findings in the right breast for which biopsy was suggested however were not readily apparent on second opinion review of outside breast imaging. The patient presents for additional imaging to clarify the suspicious findings described the outside institution. COMPARISON: July 16, 2024, July 14, 2024, February 06, 2023, November 23, 2021, October 23, 2019, January 01, 2019 MAMMOGRAM TECHNIQUE: 2-D ML, CC, MLO, and spot compression MLO and CC views were obtained of the right breast. 3-D digital tomosynthesis images were also acquired in the same projections. Computer aided detection was utilized. MAMMOGRAPHIC FINDINGS: Breast Density: The breasts have scattered areas of fibroglandular density. The additional diagnostic views of the right breast did not confirm evidence of persistent architectural distortion in the upper central right breast as described in the outside institution. The area of interest has a similar mammographic appearance dating back to 2019. No dominant mass, distortion, or suspicious microcalcification in the right breast. Ultrasound was pursued for further clarification of the outside imaging findings. ULTRASOUND TECHNIQUE: Multiple real-time bradshaw-scale images of the right breast in the 11 o'clock axis are performed. Color Doppler was used to assess vascular flow. ULTRASOUND FINDINGS: There is no evidence of mass lesions, architectural distortion, or abnormal blood flow. Only normal-appearing tissues are noted. The reported hypoechoic irregular nodule is not reproducible. RADIOLOGY No Panel InformationOrdered By: Dallas López on 07-22-2024 [facility] Work Phone: US BREAST LIMITED UNILATERAL RIGHTon 07-22-2024 US BREAST LIMITED UNILATERAL RIGHT EXAM: MAMMO DIAGNOSTIC WITH FABY RIGHT, US BREAST LIMITED UNILATERAL RIGHT, 07/22/2024 11:48 AM (accession [id number]), 07/22/2024 13:06 PM (accession [id number]) CLINICAL INDICATIONS AND HISTORY: outside BR 4 - second op by Dr. López R92.8:Abnormal finding on breast imaging The patient presents for further evaluation of findings identified on review of outside breast imaging. Outside institution noted suspicious findings in the right breast for which biopsy was suggested however were not readily apparent on second opinion review of outside breast imaging. The patient presents for additional imaging to clarify the suspicious findings described the outside institution. COMPARISON: July 16, 2024, July 14, 2024, February 06, 2023, November 23, 2021, October 23, 2019, January 01, 2019 MAMMOGRAM TECHNIQUE: 2-D ML, CC, MLO, and spot compression MLO and CC views were obtained of the right breast. 3-D digital tomosynthesis images were also acquired in the same projections. Computer aided detection was utilized. MAMMOGRAPHIC FINDINGS: Breast Density: The breasts have scattered areas of fibroglandular density. The additional diagnostic views of the right breast did not confirm evidence of persistent architectural distortion in the upper central right breast as described in the outside institution. The area of interest has a similar mammographic appearance dating back to 2018. No dominant mass, distortion, or suspicious microcalcification in the right breast. Ultrasound was pursued for further clarification of the outside imaging findings. ULTRASOUND TECHNIQUE: Multiple real-time bradshaw-scale images of the right breast in the 11 o'clock axis are performed. Color Doppler was used to assess vascular flow. ULTRASOUND FINDINGS: There is no evidence of mass lesions, architectural distortion, or abnormal blood flow. Only normal-appearing tissues are noted. The reported hypoechoic irregular nodule is not reproducible. IMPRESSION: No specific mammographic or sonographic evidence of malignancy in the right breast. BI-RADS: 1: Negative Recommendation: Routine mammography. Recommendation Laterality: Bilateral MQSA Facility: [facility], [address] [place] [address], Normal [facility] US Breast - right limitedon 07-22-2024 Radiology Study observation (narrative) [facility] BREAST IMAGING SECOND OPINIO N READINGon 07-21-2024 BREAST IMAGING SECOND OPINION READING EXAM: BREAST IMAGING SECOND OPINION READING, 07/20/2024 09:36 AM CLINICAL INDICATIONS: The patient presents to the clinic of [facility] for evaluation. The patient was initially recalled from an outside screening mammogram in July 2024 for further evaluation of a focal area of architectural distortion/nodularity in the slightly upper central portion of the right breast. The patient underwent a right breast ultrasound which identified a 1 cm x 0.9 cm x 0.9 cm hypoechoic irregular nodule followed in wide at 11:00 position of the breast 7 cm the nipple. Biopsy was recommended. Requested evaluation of outside breast imaging. COMPARISON: Bilateral screening mammogram with tomosynthesis July 14, 2024. Right breast ultrasound July 16, 2024. Remote mammograms from February 06, 2023, November 23, 2021, October 23, 2019, and January 01, 2019 were reviewed for comparative purposes. MAMMOGRAM FINDINGS: The breasts have scattered areas of fibroglandular density. With regards to the bilateral screening mammogram of July 14, 2024 I do not clearly appreciate the described focal area of nodularity/architectur al distortion in the upper central right breast described in the outside report. To me, the mammogram appears similar to the comparison study is without a definite suspicious finding. ULTRASOUND FINDINGS: With regard to the right breast ultrasound July 16, 2024 the outside motor teacher measures a area in the 11:00 right breast. I do not appreciate a specific abnormality at the measured site. To me this has an appearance most consistent with a fat lobule. IMPRESSION: Overall, it is unclear that biopsy is warranted at this time. The patient should present for a right diagnostic mammogram to include 2-D/3-D MLO, CC, and ML views and ultrasound for clarification of the reported outside imaging findings. Normal [facility] CNOVon 06-17-2024 CNOV Office Visit (ORTHWS ) ARLENE ELOYDIAMOND ([id number]) 1965 [facility] Date Time Provider Department 06/17/24 11:00 AM SHARON CHAMPION During your visit today, we recorded the following information about you: Sharon Champion DO 06/17/2024 11:22 AM Signed Reason for Visit/Chief Complaint Diamond Lyons is a 59 year old female who presents today for a new evaluation of following complaint: Patient presents with: Left Thumb - Established Patient, Trigger Finger History of Present Illness: PAIN EVALUATION 06/17/2024 1047 Pain Level: 3 Pain Location: Finger Description: Sore Duration Amount of Time: 4 Duration Units: Months Frequency: Intermittent Intervention/Comfort measure: Reposition;Relaxation HPI: Diamond Lyons is a 59 year old female presenting today with L trigger thumb. Pain history is noted as above. Thumb has been bothering her for 4 months. Thumb does not lock up but is very sore with pinching and grasping. No injury. She had a right middle finger trigger release on 04/08/24 and is doing well. She is interested in discussing trigger release for L thumb. Previous Treatments: Ice: No Heat: No Brace: No NSAIDs: No Injections: No Surgeries: No Physical Therapy: No Review of Systems: Patient did not have, and does not currently have, any weight loss, malaise, fever, chills, headache, chest pain, chest pressure, palpitations, cough, shortness of breath, orthopnea, paroxsymal nocturnal dyspnea, nausea, vomiting, diarrhea, constipation, melena, hematochezia, urinary difficulties, prolonged bleeding, easily bruising, heat or cold intolerance, new onset joint pain or swelling, new onset extremity weakness or numbness, new onset auditory or visual disturbances, lightheadedness, dizziness, partial loss of consciousness or full loss of consciousness. Current Outpatient Medications on File Prior to Visit Medication Sig ubidecarenone/vitamin E mixed (COQ10 SG 100 ORAL) Take by mouth. CALCIUM ORAL Take 1,200 mg by mouth. fluticasone propionate (FLOVENT DISKUS INHALATION) Inhale as instructed. nitrofurantoin monohydrate and macrocrystal (MACROBID) 100 mg capsule TAKE 1 CAPSULE TWICE A DAY calcium carbonate (CALTRATE 600) 600 mg (1,500 mg) tab Take 600 mg by mouth once daily. pravastatin (PRAVACHOL) 20 mg ORAL tablet Take 40 mg by mouth daily at bedtime. No current facility-administered medications on file prior to visit. ALLERGIES Allergen Reactions Codeine Shortness of Breath Contrast Dye Hives Penicillins Shortness of Breath Sulfa (Sulfonamide * Shortness of Breath Teramycin [Oxytetra* Shortness of Breath Physical Exam: Vitals: There were no vitals taken for this visit. Psych: Pleasant, good affect and mood General Appearance: Well appearing, alert, in no acute distress, well-hydrated, well nourished.. Skin: Skin color, texture, turgor normal, no suspicious rashes or lesions. Peripheral Pulses: Normal. Neurologic: Gait normal. Reflexes normal and symmetric. Sensation grossly intact.. Lymph Nodes: No cervical lymphadenopathy, No supraclavicular lymphadenopathy, No axillary lymphadenopathy., and No inguinal lymphadenopathy.. Respiratory: No recent pulmonary infection, hemoptysis, chronic cough, or shortness of breath at rest Rheumatologic: Joint deformities: left thumb a1 olvin Right Hand Exam Right hand exam is normal. Tenderness The patient is experiencing no tenderness. Range of Motion The patient has normal right wrist ROM. Wrist Extension: normal Flexion: normal Pronation: normal Supination: normal Muscle Strength The patient has normal right wrist strength. Tests Phalen?s Sign: negative Tinel's sign (median nerve): negative Jericho's test: negative Other Erythema: absent Sensation: normal Pulse: present Comments: B/l med/uln/rad/ax nerves intact Left Hand Exam Tenderness The patient is experiencing tenderness in the palmar area (thumb). Range of Motion The patient has normal left wrist ROM. Wrist Extension: normal Flexion: normal Pronation: normal Supination: normal Muscle Strength The patient has normal left wrist strength. Tests Phalen?s Sign: negative Tinel's sign (median nerve): negative Jericho's test: negative Other Erythema: absent Sensation: normal Pulse: present Comments: Ttp a1 olvin left thumb Imaging: Last XR Hand/Finger - Impression Only XR HAND GENERAL 3V PA/LAT/OBL RIGHT Exam End: 03/31/2024 10:22 AM (Final result) Impression: IMPRESSION: Questionable 4th middle phalanx fracture. Please correlate clinically. Mild osteoarthrosis Adjunct Teacher: MAY Transcribe Date/Time: Apr 01 2024 10:12P Dictated by : MARKUS LEON MD... Assessment and Plan: Impression: Encounter Diagnosis ICD-10-CM 1. Trigger finger of left (more content not included)... Normal [facility] CNOVon 06-04-2024 CNOV Office Visit (SERGEY ) DIAMOND BALES ([id number]) 1965 F JOANN Date Time Provider Department 06/04/24 10:30 AM MICHELINE OJEAD During your visit today, we recorded the following information about you: Micheline Ojeda, JENNY 06/04/2024 12:54 PM Signed Head and Neck [place] HEARING AID EVALUATION Name: Diamond Lyons [facility]#: [id number] Date of Service: 06/04/2024 Date of : 1965 Age: [age] year old HISTORY Diamond Lyons was seen today for a hearing needs assessment. She was accompanied by her and son. Medical clearance was provided by Catia Barr PA-C. Unaided audiometric testing was completed at the [facility] on 03/05/2024 with the following results: QUESTIONNAIRE RESULTS 1. Top listening situations they want to improve: a. TV has been turned up, has to use speaker phone to have conversations b. Her is concerned that she is not aware of sounds around her. c. She is interested in knowing the likelihood of dementia with hearing loss Note: patient reported that her research on hearing aids suggested [place] made devices are better than other manufacturers. 2. Most important consideration regarding hearing aids was: Improved ability to hear and understand conversations. and Improved ability to understand conversations in noisy situations. 3. Indicated they were willing to pay for premium (level 4)device/s to meet their hearing needs. 4. Patient is interested in phone connectivity: No. 5. Patient is interested in virtual follow-up appointments: No. DEMONSTRATION OF HEARING AID TECHNOLOGY AND DISCUSSION Clinic-demo Phonak Audeo L90/Oticon Intent 1 devices with length 1xM/1x85 receivers and medium vented/8mm double martin domes were programmed to the patient's most recent hearing test. Devices were set to 100% target gain using proprietary fitting formula and fit to patient for an in-office demo of current hearing aid technology. Visual inspection revealed good fit and retention of devices and any pain or discomfort was denied. When the devices were turned on, Diamond Lyons noted sounds and conversation were easier to hear and were clearer with Phonak devices. Performance in background noise was assessed using the QuickSIN with demo hearing aid technology (binaurally). Two lists of six sentences with five mccormack words per sentence were presented in four-talker babble noise in each condition (i.e., aided and unaided. An averaged SNR Loss was calculated for each condition, which allows for comparison to an individual with normal hearing. QuickSIN presented at 70 spring coverer Unaided 3 dB SNR loss indicating Normal/near normal (0-3 dB) degree of SNR loss Oticon 5.5 dB SNR loss indicating Mild (3-7 dB) degree of SNR loss Phonak 4 dB SNR loss indicating Mild (3-7 dB) degree of SNR loss Based on a review of the COAT, [id number] testing with demonstration of devices, and a discussion about the various amplification options with the patient, including the style of hearing aid, the level of technology, and the use of binaural versus monaural devices, it was agreed that the patient would consider the options and return at a later date if the decision is made to pursue hearing aids.. It is also understood that maximum benefit will be achieved from the hearing aid(s) with frequent use and proper fitting and programming. DEVICES TO BE ORDERED Should patient opt to proceed with hearing aids she preferred the following: Device: Phonak Audeo I90 Color: P1 Galvanizer: Length 1, M power Dome: medium vented FINANCIAL COMPONENT Insurance benefit was verified and found that they do not have insurance coverage. It is understood that full payment will be required at the fitting appointment. NOTE: Payment at the time of the Hearing Aid Fitting includes the cost of the device, the fitting appointment as well as all follow-up appointments related to the hearing aids for ONE YEAR from the fitting date. All other appointments - non hearing aid related such as audiometric testing, ENT appointments, etc are NOT covered under the this payment. All future appointments past the ONE YEAR from fitting date will be a [id number]. If there is an insurance benefit, the cost of the devices along with the fitting fee will be submitted to insurance. If it has been determined that there is a limit to the insurance coverage, patient will be financially responsible at the time of the fitting for the balance over the insurance benefit limit. Patient was quoted $5900 for devices due at time of fitting and expressed understanding. Patient was taken to the front end application developer to pay today's appointment fee of $100. MANAGEMENT PLAN / RECOMMENDATIONS: * Contact the provider when the decision is made to pursue amplification. * Patient was given an informational brochure about th (more content not included)... Normal [facility] ANTONIETTAon 04-22-2024 CNOV Office Visit (ORTHWS ) DIAMOND BALES ([id number]) 1965 F JOANN Date Time Provider Department 04/22/24 12:45 PM SHARON CHAMPION During your visit today, we recorded the following information about you: Sharon Champion DO 04/24/2024 8:32 PM Signed Follow Up Visit Chief Complaint Diamond Lyons is a 59 year old female who presents today for follow up office visit. Patient presents with: Right Hand - Established Patient, Post Op History of Present Illness PAIN EVALUATION No data found in the last 1 encounters. HPI: Diamond Lyons is a 59 year old female for a follow up visit 2 weeks post op right middle trigger finger release. Patient denies any pain. She removed her own sutures. Pain history is noted as above. No issues, impiroved and doing great. Is there any overall improvement in your condition? Yes, Any new injury, since being seen last: No REVIEW OF SYMPTOMS: Patient did not have, and does not currently have, any weight loss, malaise, fever, chills, headache, chest pain, chest pressure, palpitations, cough, shortness of breath, orthopnea, paroxsymal nocturnal dyspnea, nausea, vomiting, diarrhea, constipation, melena, hematochezia, urinary difficulties, prolonged bleeding, easily bruising, heat or cold intolerance, new onset joint pain or swelling, new onset extremity weakness or numbness, new onset auditory or visual disturbances, lightheadedness, dizziness, partial loss of consciousness or full loss of consciousness. Current Outpatient Medications Medication Sig ubidecarenone/vitamin E mixed (COQ10 SG 100 ORAL) Take by mouth. fluticasone propionate (FLOVENT DISKUS INHALATION) Inhale as instructed. nitrofurantoin monohydrate and macrocrystal (MACROBID) 100 mg capsule TAKE 1 CAPSULE TWICE A DAY calcium carbonate (CALTRATE 600) 600 mg (1,500 mg) tab Take 600 mg by mouth once daily. pravastatin (PRAVACHOL) 20 mg ORAL tablet Take 40 mg by mouth daily at bedtime. CALCIUM ORAL Take 1,200 mg by mouth. No current facility-administered medications for this visit. Physical Exam Vitals: There were no vitals taken for this visit. Psych: Pleasant, good affect and mood General Appearance: Well appearing, alert, in no acute distress, well-hydrated, well nourished.. Skin: Skin color, texture, turgor normal, no suspicious rashes or lesions. Peripheral Pulses: Normal. Neurologic: Gait normal. Reflexes normal and symmetric. Sensation grossly intact.. Lymph Nodes: No cervical lymphadenopathy, No supraclavicular lymphadenopathy, No axillary lymphadenopathy., and No inguinal lymphadenopathy.. Respiratory: No recent pulmonary infection, hemoptysis, chronic cough, or shortness of breath at rest Rheumatologic: Joint deformities: right middle finger Right Hand Exam Right hand exam is normal. Tenderness The patient is experiencing no tenderness. Range of Motion The patient has normal right wrist ROM. Wrist Extension: normal Flexion: normal Pronation: normal Supination: normal Muscle Strength The patient has normal right wrist strength. Tests Phalen?s Sign: negative Tinel's sign (median nerve): negative Jericho's test: negative Other Erythema: absent Sensation: normal Pulse: present Comments: B/l med/uln/rad/ax nerves intact Left Hand Exam Left hand exam is normal. Tenderness The patient is experiencing no tenderness. Range of Motion The patient has normal left wrist ROM. Wrist Extension: normal Flexion: normal Pronation: normal Supination: normal Muscle Strength The patient has normal left wrist strength. Tests Phalen?s Sign: negative Tinel's sign (median nerve): negative Jericho's test: negative Other Erythema: absent Sensation: normal Pulse: present Assessment and Plan Radiographs: no concerns Impression: Encounter Diagnosis ICD-10-CM 1. Trigger middle finger of right hand M65.331 Today, in detail, through a thorough evaluation, we discussed possible etiologies of pain and our plans for further diagnostic and therapeutic interventions. We discussed strategies for decreasing pain and improving strength, stability and motion. Patient's questions were answered in detailed. Patient verbalizes understanding and agrees with the treatment plan as discussed. Postop No issues or concerns, has full range of motion Patient aware and in agreement of plan. All questions answered. Sharon Champion D.O. M.P.H. Referring Provider: SHARON CHAMPION [[id number]] Allergies As of Date: 04/22/2024 Noted Allergy Reaction CODEINE 06/03/2006 12 - Shortness of Breath CONTRAST DYE 08/04/2006 4 - Hives PENICILLINS 06/03/2006 12 - Shortness of Breath SULFA (SULFONAMIDE ANTIBIOTICS) 06/03/2006 12 - Shortness of Breath TERAMYCIN (OXYTETRACYCLINE) 06/03/2006 12 - Shortness of Meera (more content not included)... Normal [facility] ANES POSTPROC EVALon 024 ANES POSTPROC EVAL HNO ID: [id number] Author: LIANNE JEAN MD Service: Anesthesiology Author Type: Anesthesiologist Type: Anesthesia Postprocedure Evaluation Filed: 04/08/2024 12:55 Note Text: POST ANESTHESIA EVALUATION NOTE : 1965 Procedure Summary Date: 04/08/24 Room / Location: [place] [address] / [place] Anesthesia Start: 1139 Anesthesia Stop: 1221 Procedure: RELEASE TRIGGER FINGER (Right: Finger middle) Diagnosis: Trigger middle finger of right hand (Trigger middle finger of right hand [M65.331]) Surgeons: Sharon Champion DO Responsible Provider: Lianne Jean MD Anesthesia Type: MAC ASA Status: 2 Anesthesia Type: MAC Last Vitals Vitals Value Taken Time BP 151/72 04/08/24 1245 Temp 36.8 ?C (98.2 ?F) 04/08/24 1220 HR SpO2 81 04/08/24 1220 Resp 23 04/08/24 1246 SpO2 96 % 04/08/24 1246 Vitals shown include unfiled device data. Post Anesthesia Patient Status Patient Evaluation: PACU. PACU/ICU Patient Condition: stable. Neurological Status: aware and responsive. Pulmonary Status: breathing comfortably on room air Airway Control: returned to baseline unsupported. Cardiovascular Status: stable. Pain Management: clinically adequate Postoperative Hydration: acceptable. Intraoperative Events: no significant anesthesia events Post Operative Nausea/Vomiting Status: no significant post operative nausea or vomiting Recommendation: continue current plan of care. Anesthesia Observations No Documentation SIGNATURE: Lianne Jean MD PATIENT NAME: Diamond Lyons DATE: April 08, 2024 TIME: 12:55 PM CSN: [id number] [facility] ANES PRE-OPon 04-08-2024 ANES PRE-OP HNO ID: [id number] Author: LIANNE JEAN MD Service: Anesthesiology Author Type: Anesthesiologist Type: Anesthesia Preprocedure Evaluation Filed: 04/08/2024 11:38 Note Text: ANESTHESIOLOGY DAY OF SURGERY NOTE : 1965 Procedure Information Date/Time: 04/08/24 1234 Procedure: RELEASE TRIGGER FINGER (Right: Finger middle) Location: [place] [place] Surgeons: Sharon Champion DO Estimated body mass index is 36.13 kg/m? as calculated from the following: Height as of this encounter: 152.4 cm (5'). Weight as of this encounter: 83.9 kg (185 lb). Most recent hematocrit and potassium results: Hematocrit 38.2 10/13/2003 Potassium 4.1 10/13/2003 Relevant Problems No relevant active problems I - PHYSICAL EVALUATION AIRWAY Patient intubated: No. Tracheostomy tube not present Mallampati: II. TM distance: >3 FB. Neck ROM: full ROM without neurological symptoms. Mouth opening: adequate. Short neck: yes. Thick neck: no Alford present: no DENTAL Dental findings: teeth intact. Additional exam findings: no II - ANESTHESIA PLAN ASA Score: 2 Anesthetic Plan: MAC The patient is not a current smoker. NPO Status: adequate Beta Yun Monitoring Plan Monitoring plan: standard ASA. Post Procedure Analgesic Plan Postoperative analgesic plan: parenteral or oral opioids. Informed Consent Anesthetic risks, benefits, alternatives, personnel and consent discussed: yes. Patient / Responsible Libertarian agrees to proceed: yes Patient / Surrogate agrees to blood products: blood products not planned Significant changes in the patient condition since the History and Physical, not otherwise documented in primary service progress note: no. Potential Anesthesia issues that may suggest increased risk of complications or contraindication to planned procedure: none. Vitals Value Taken Time BP 175/81 04/08/24 1106 Pulse 93 04/08/24 1106 Resp 20 04/08/24 1106 Temp 36.1 ?C (97 ?F) 04/08/24 1106 SpO2 96 % 04/08/24 1106 Facility-Administered Medications as of 04/08/2024 Medication Dose Route Frequency lidocaine (PF) 10 mg/mL (1 %) 1-2 mg injection (XYLOCAINE) 0.1-0.2 mL INTRADERMAL PRN lactated ringers iv infusion 5-30 mL/hr INTRAVENOUS CONTINUOUS NaCl 0.9% iv flush bag 20 mL INTRAVENOUS PRN ceFAZolin iv piggyback 2 g in D5W (iso-osmotic) 100 mL (ANCEF) 2 g INTRAVENOUS Pre-Op Once [COMPLETED] metoclopramide HCl 10 mg injection (REGLAN) 10 mg INTRAVENOUS Pre-Op Once [COMPLETED] famotidine 20 mg injection (PEPCID) 20 mg INTRAVENOUS Pre-Op Once Outpatient Medications as of 04/08/2024 Medication Sig nitrofurantoin monohydrate and macrocrystal (MACROBID) 100 mg capsule TAKE 1 CAPSULE TWICE A DAY calcium carbonate (CALTRATE 600) 600 mg (1,500 mg) tab Take 600 mg by mouth once daily. pravastatin (PRAVACHOL) 20 mg ORAL tablet Take 40 mg by mouth daily at bedtime. I have interviewed and examined the patient. I have reviewed the medical record and/or the pre-anesthesia evaluation, pertinent labs, and test results. This contains updated information obtained within 48 hours of Surgery/Procedure. SIGNATURE: Lianne Jean MD PATIENT NAME: Diamond Lyons DATE: April 08, 2024 TIME: 11:37 AM CSN: [id number] [facility] OPERATIVE NOon 04-08-2024 OPERATIVE NO HNO ID: [id number] Author: SHARON CHAMPION DO Service: Orthopaedic Surgery Author Type: Physician Type: Operative Report Filed: 04/08/2024 12:14 Note Text: OPERATIVE/PROCEDURE REPORT LOG ID: [id number] SURGERY/PROCEDURE DATE: 04/08/2024 INCISION/PROCEDURE START TIME: 11:53 AM INCISION CLOSE/PROCEDURE END TIME: SURGEON(S)/PROCEDURALI ST(S) AND BIOMETRIC FINGERPRINTING TECHNICIAN(S): Surgeon(s) and Role: * Sharon Champion DO - Primary Physician [employer] D[employer] Car Steward/Stewardess: Chasidy Fairbanks PA-C SURGERY/PROCEDURE(S): OPERATIVE/PROCEDURE REPORT LOG ID: [id number] Surgery/Procedure Date: 04/08/2024 Incision/Procedure Start Time: 11:53 AM Incision Close/Procedure End Time: Surgeon(s)/Procedurali st(s) and [employer] Dining Car Steward/Stewardess(s): Surgeon(s) and Role: * Sharon Champion DO - Primary Physician [employer] D[employer] Car Steward/Stewardess: Regotti, Chasidy, PA-C Procedure(s): right middle trigger release. Anesthesia: Local. Procedure Details: On 04/08/2024, the patient was clearly identified in the preoperative area and marked accordingly on the right middle by myself. After a chloroprep swab, Local anesthetic was provided at the base of the middle near the A1 olvin site for a total of 2 mL of 1% lidocaine with Epinephrine. Patient was taken to the operative suite and placed in the supine position with an arm board on the right. All other bony landmarks were appropriately padded in standard fashion. The right upper extremity was sterilely prepped and draped in standard fashion. An appropriate time-out was conducted and all in the room were in agreement, signed consent form was on the chart. An incision was made over the A1 olvin of the middle. This was done superficially with a 15 blade and blunt dissection was taken down longitudinally to the flexor apparatus. The digital nerves were clearly identified and protected throughout the case with Crile retractors. Under direct visualization, I divided the A1 olvin site of the middle with a 15 blade. There was obvious tenosynovitis and a slight synovectomy was made with Littler scissors. I used a Ragnell retractor to pull the tendon up through the wound confirming its complete release. The wound was copiously irrigated and the tourniquet was taken down. Hemostasis was observed with bipolar electrocautery. Closure was done with 4-0 Monosof sutures in horizontal mattress fashion for a total of 2. Xeroform gauze, an eye patch, light Rakel wrap and Coban was used for final bandage. There were no complications during the procedure. Patient was safely awoken and transferred to the Postanesthetic Care Unit in stable condition. Pre-Op/Pre-Procedure Diagnosis: right middle trigger finger Post-Op/Post-Procedure Diagnosis: right middle trigger finger. Estimated Blood Loss: None Specimens: None Implantable Devices: None Drains: None Complications: None The primary surgeon/proceduralist performed the entire procedure. SIGNATURE: Sharon Champion DO PATIENT NAME: Diamond Lyons DATE: April 08, 2024 TIME: 12:14 PM PAGER/CONTACT #: ANESTHESIA: Monitored Anesthesia Care SURGERY/PROCEDURE DETAILS: as above PRE-OP/PRE-PROCEDURE DIAGNOSIS: as above POST-OP/POST-PROCEDURE DIAGNOSIS: Same as Preop ESTIMATED BLOOD LOSS: 0 ml SPECIMENS: None IMPLANTABLE DEVICES: NONE DRAINS: None COMPLICATIONS: None CLOSURE TECHNIQUE: Primary PARTICIPATION IN SURGERY/PROCEDURE: I/primary surgeon/proceduralist performed the procedure with assistance. No qualified resident/fellow was available. SIGNATURE: Sharon Champion DO PATIENT NAME: Diamond Lyons DATE: April 08, 2024 TIME: 12:13 PM [facility] HISTORY PHYSICALon HISTORY PHYSICAL HNO ID: [id number] Author: UNIQUE WINN APRN.ELECTRONIC INSTALLER Service: ? Author Type: Nurse Practitioner Type: H&P Filed: 04/07/2024 15:30 Note Text: HISTORY AND PHYSICAL EXAMINATION SERVICE DATE: 04/07/2024 SERVICE TIME: 3:28 PM PRIMARY CARE PHYSICIAN: May Polo [facility] Assessment Patient has the following medical conditions which may affect ana-operative course: Recurrent UTI Assessment: daily Macrobid, use to follow with urology, now PCP manages, denies any current UTI symptoms Mixed hyperlipidemia Assessment: c/w statin Class 2 obesity due to excess calories with body mass index (BMI) of 36.0 to 36.9 in adult Assessment: Body mass index is 36.13 kg/m?. Asthma Assessment: controlled with rx as needed Lara Activity Status Index: METS: Climb a flight of stairs or walk up a hill (5.50 METs) DASI Score: 5.5 Patient denies any chest pain or undue shortness of breath with the above physical activity. Clinical Frailty Scale: 3. Well, with treated comorbid disease STOP-Bang Score: Snores loudly BMI greater than 35 kg/m2 Patient over 50 years old Has a large neck Denies feeling tired, fatigued, or sleepy during the daytime Has not been observed to stop breathing or choking/gasping during sleep Denies having high blood pressure Non-male patient STOP-Bang Score: 4 [id number] Score: Age: <65 Sex: female CHF history: No Hypertension history: No Stroke/TIA/thromboembo lism history: No Vascular disease history: No Diabetes history: No [id number] Score: 1 ARISCAT Score: Age: 51-80 Preoperative SpO2: >=96% Respiratory infection in the last month: No Preoperative anemia: Yes Surgical incision: peripheral Duration of surgery: <2 hrs Emergency procedure: No ARISCAT Score: 14 ANESTHESIA FINDINGS: Intubation History: No history of difficult intubation Significant Anesthesia Considerations: none Airway History: No history of difficult airway I - PHYSICAL EVALUATION AIRWAY Patient intubated: No. Tracheostomy tube not present Mallampati: III. TM distance: >3 FB. Neck ROM: full ROM without neurological symptoms. Mouth opening: adequate. Short neck: yes. Thick neck: yes Alford present: no Lip Bite Test: I Microretrognathia/Micr onagthia/Recessed Chin: No DENTAL Dental findings: teeth intact. Additional comments: +crowns/back. II - ANESTHESIA PLAN Anesthetic Plan: other Beta Yun Monitoring Plan Post Procedure Analgesic Plan Informed Consent Anesthetic risks, benefits, alternatives, personnel and consent discussed: yes. Patient / Responsible Libertarian agrees to proceed: yes Patient / Surrogate agrees to blood products: blood products not planned Discussed the possibility of lip / dental damage: yes Prepared for Surgery: optimally prepared for surgery. CONSULTS: Patient does not require consults for optimization at this time Planned Anesthetic: other anesthesia choice The Following Tests/Procedures Have Been Initiated: Orders Placed This Encounter ubidecarenone/vitamin E mixed (COQ10 SG 100 ORAL) Sig: Take by mouth. CALCIUM ORAL Sig: Take 1,200 mg by mouth. fluticasone propionate (FLOVENT DISKUS INHALATION) Sig: Inhale as instructed. REASON FOR VISIT: Diamond Lyons is a 58 year old female who is scheduled for Procedure(s): RELEASE TRIGGER FINGER (Right) at the request of Dr. Sharon Champion for consultation. My final recommendation will be communicated back to the requesting physician by way of shared medical record or letter. Subjective The patient has the following: ACTIVE PROBLEM LIST PAIN ABDOMEN( Epigastric) GASTRITIS ANTRAL( W/O Hemorrhage) HIATAL HERNIA Acute Gastritis Without Mention of Hemorrhage Other Specified Gastritis Microscopic Hematuria Sensorineural Hearing Loss, Bilateral Recurrent Uti Mixed Hyperlipidemia Class 2 Obesity Due to Excess Calories With Body Mass Index (Bmi) of 36.0 to 36.9 in Adult Asthma COVID-19 Immunization Status Overdue - Covid-19 Vaccine ( season) Never done No completion, postpone, frequency change, or communication history exists for this topic. CHIEF COMPLAINT: Pre-op exam HPI: Diamond Lyons is a 58 year old seen for PAC due to scheduled above surgery because middle trigger finger right hand. 03/31/2024, Dr. Sharon Champion Patient presents with: Right Hand - New, Pain History of Present Illness: PAIN EVALUATION 03/31/2024 1130 Pain Level: 1 increases with use Pain Location: Finger Description: - catching Duration Amount of Time: 3 Duration Units: Months Frequency: Intermittent HPI: Diamond Lyons is a 58 year old female presenting today with right middle finger pain. Patient states that for the past 3 months she has been noticing her finger has been getting stuck. She does have a history of multiple trigger finger releases. Patient would like to discuss surgica (more content not included)... Normal [facility] XR Hand - right PA and Later al and Obliqueon 04-01-2024 IMPRESSION: Questionable 4th middle phalanx fracture. Please correlate clinically. Mild osteoarthrosis Adjunct Teacher: MAY Transcribe Date/Time: Apr 01 2024 10:12P Dictated by : MARKUS LEON MD This examination was interpreted and the report reviewed and electronically signed by: MARKUS LEON MD on Apr 01 2024 10:14PM EST [facility] * * *Final Report* * * DATE OF EXAM: Mar 31 2024 10:21AM [facility] 5346 - XR HAND 3V PA/LAT/OBL RT / PROCEDURE REASON: [id number] * * * * Physician Interpretation * * * * PROCEDURE: Right hand INDICATION: Pain .right hand pain TECHNIQUE: XR HAND 3V PA/LAT/OBL RT COMPARISON: None FINDINGS: Questionable longitudinal fracture of the proximal mid aspect of the 4th middle phalanx. Mild osteoarthritic change in all fingers, triscaphe and 1st CMC joints. No osseous lesion. No erosion or focal soft tissue swelling. [facility] Provider, Michael Howard - 04/01/2024 * * *Final Report* * * DATE OF EXAM: Mar 31 2024 10:21AM [facility] 5346 - XR HAND 3V PA/LAT/OBL RT / PROCEDURE REASON: [id number] * * * * Physician Interpretation * * * * PROCEDURE: Right hand INDICATION: Pain .right hand pain TECHNIQUE: XR HAND 3V PA/LAT/OBL RT COMPARISON: None FINDINGS: Questionable longitudinal fracture of the proximal mid aspect of the 4th middle phalanx. Mild osteoarthritic change in all fingers, triscaphe and 1st CMC joints. No osseous lesion. No erosion or focal soft tissue swelling. IMPRESSION IMPRESSION: Questionable 4th middle phalanx fracture. Please correlate clinically. Mild osteoarthrosis Adjunct Teacher: MAY Transcribe Date/Time: Apr 01 2024 10:12P Dictated by : MARKUS LEON MD This examination was interpreted and the report reviewed and electronically signed by: MARKUS LEON MD on Apr 01 2024 10:14PM EST [facility] XR Hand - right PA and Later al and ObliqueOrdered By: [facility] Provider on 04-01-2024 [facility] CNOVon 03-31-2024 CNOV Office Visit (ORMDNA ) DIAMOND BALES ([id number]) 1965 F JOANN Date Time Provider Department 03/31/24 11:00 AM SHARON CHAMPION During your visit today, we recorded the following information about you: Sharon Champion DO 03/31/2024 11:56 AM Signed Reason for Visit/Chief Complaint Diamond Lyons is a 58 year old female who presents today for a new evaluation of following complaint: Patient presents with: Right Hand - New, Pain History of Present Illness: PAIN EVALUATION 03/31/2024 1130 Pain Level: 1 increases with use Pain Location: Finger Description: -- catching Duration Amount of Time: 3 Duration Units: Months Frequency: Intermittent HPI: Diamond Lyons is a 58 year old female presenting today with right middle finger pain. Patient states that for the past 3 months she has been noticing her finger has been getting stuck. She does have a history of multiple trigger finger releases. Patient would like to discuss surgical options. Pain history is noted as above. Previous Treatments: Ice: No Heat: No Brace: No NSAIDs: No Injections: No Surgeries: multiple previous trigger finger release on different fingers Physical Therapy: No Review of Systems: Patient did not have, and does not currently have, any weight loss, malaise, fever, chills, headache, chest pain, chest pressure, palpitations, cough, shortness of breath, orthopnea, paroxsymal nocturnal dyspnea, nausea, vomiting, diarrhea, constipation, melena, hematochezia, urinary difficulties, prolonged bleeding, easily bruising, heat or cold intolerance, new onset joint pain or swelling, new onset extremity weakness or numbness, new onset auditory or visual disturbances, lightheadedness, dizziness, partial loss of consciousness or full loss of consciousness. Current Outpatient Medications on File Prior to Visit Medication Sig nitrofurantoin monohydrate and macrocrystal (MACROBID) 100 mg capsule TAKE 1 CAPSULE TWICE A DAY calcium carbonate (CALTRATE 600) 600 mg (1,500 mg) tab Take 600 mg by mouth once daily. budesonide-formoterol (SYMBICORT) 80-4.5 mcg/actuation inhaler Inhale 2 Puffs as instructed twice daily. pravastatin (PRAVACHOL) 20 mg ORAL tablet Take 40 mg by mouth daily at bedtime. solifenacin (VESICARE) 5 mg tablet Take 1 tablet by mouth once daily. MYRBETRIQ 50 mg Tb24 Take 50 mg by mouth once daily. No current facility-administered medications on file prior to visit. ALLERGIES Allergen Reactions Codeine Shortness of Breath Contrast Dye Hives Penicillins Shortness of Breath Sulfa (Sulfonamide * Shortness of Breath Teramycin [Oxytetra* Shortness of Breath Physical Exam: Vitals: There were no vitals taken for this visit. Psych: Pleasant, good affect and mood General Appearance: Well appearing, alert, in no acute distress, well-hydrated, well nourished.. Skin: Skin color, texture, turgor normal, no suspicious rashes or lesions. Peripheral Pulses: Normal. Neurologic: Gait normal. Reflexes normal and symmetric. Sensation grossly intact.. Lymph Nodes: No cervical lymphadenopathy, No supraclavicular lymphadenopathy, No axillary lymphadenopathy., and No inguinal lymphadenopathy.. Respiratory: No recent pulmonary infection, hemoptysis, chronic cough, or shortness of breath at rest Rheumatologic: Joint deformities: right middle finger pain Right Hand Exam Right hand exam is normal. Tenderness The patient is experiencing no tenderness. Range of Motion The patient has normal right wrist ROM. Wrist Extension: normal Flexion: normal Pronation: normal Supination: normal Muscle Strength The patient has normal right wrist strength. Tests Phalen?s Sign: negative Tinel's sign (median nerve): negative Jericho's test: negative Other Erythema: absent Sensation: normal Pulse: present Comments: B/l med/uln/rad/ax nerves intact Ttp a1 olvin with locking middle finger right Left Hand Exam Left hand exam is normal. Tenderness The patient is experiencing no tenderness. Range of Motion The patient has normal left wrist ROM. Wrist Extension: normal Flexion: normal Pronation: normal Supination: normal Muscle Strength The patient has normal left wrist strength. Tests Phalen?s Sign: negative Tinel's sign (median nerve): negative Jericho's test: negative Other Erythema: absent Sensation: normal Pulse: present Imaging: Last XR Hand/Finger - Impression Only XR HAND GENERAL 3V PA/LAT/OBL RIGHT Exam End: 03/31/2024 10:22 AM (In process) No acute findings, see chart when rad read Assessment and Plan: Impression: Encounter Diagnosis ICD-10-CM 1. Trigger middle finger of right hand M65.331 Plan: Risks and benefits vs alternatives to treatment were discussed with patient. Risks including but not limite (more content not included)... Normal [facility] XR HAND 3V PA/LAT/OBL RTon 0 03-31-2024 XR HAND 3V PA/LAT/OBL RT * * *Final Report* * * DATE OF EXAM: Mar 31 2024 10:21AM [facility] 5346 - XR HAND 3V PA/LAT/OBL RT / PROCEDURE REASON: [id number] * * * * Physician Interpretation * * * * PROCEDURE: Right hand INDICATION: Pain .right hand pain TECHNIQUE: XR HAND 3V PA/LAT/OBL RT COMPARISON: None FINDINGS: Questionable longitudinal fracture of the proximal mid aspect of the 4th middle phalanx. Mild osteoarthritic change in all fingers, triscaphe and 1st CMC joints. No osseous lesion. No erosion or focal soft tissue swelling. IMPRESSION: Questionable 4th middle phalanx fracture. Please correlate clinically. Mild osteoarthrosis Adjunct Teacher: MAY Transcribe Date/Time: Apr 01 2024 10:12P Dictated by : MARKUS LEON MD This examination was interpreted and the report reviewed and electronically signed by: MARKUS LEON MD on Apr 01 2024 10:14PM EST [id number] [facility] XR Hand - right PA and Later al and Obliqueon 03-31-2024 Radiology Study observation (narrative) [facility] CNOVon 03-05-2024 CNOV Office Visit (OTOLIN ) ARLENE TSAICASANDRADIAMOND Rai ([id number]) 1965 F JOANN Date Time Provider Department 03/05/24 3:30 PM CATIA BARR During your visit today, we recorded the following information about you: Catia Barr PA-C 03/05/2024 5:03 PM Signed CC: Diamond Wallis Eloy is 58 year old female who is self referred for hearing loss Assessment and Plan: (H90.3) Sensorineural hearing loss (SNHL) of both ears (primary encounter diagnosis) ~audiogram demonstrates BL SNHL in cookie bite pattern with normal middle ear function ~ordered Hearing Aid Evaluation ~follow up with me as needed HPI: Diamond is a 58 year old who reports hearing loss of both ears. Her and son notice the hearing loss more than she does. This has been an ongoing problem for years and has become more pronounced in the last 4-5 years. Denies otalgia, otorrhea, h/o ear surgeries, or tubes. She is interested in the next steps. ALLERGIES Allergen Reactions Codeine Shortness of Breath Contrast Dye Hives Penicillins Shortness of Breath Sulfa (Sulfonamide * Shortness of Breath Teramycin [Oxytetra* Shortness of Breath Current Outpatient Medications Medication Sig nitrofurantoin monohydrate and macrocrystal (MACROBID) 100 mg capsule TAKE 1 CAPSULE TWICE A DAY solifenacin (VESICARE) 5 mg tablet Take 1 tablet by mouth once daily. MYRBETRIQ 50 mg Tb24 Take 50 mg by mouth once daily. calcium carbonate (CALTRATE 600) 600 mg (1,500 mg) tab Take 600 mg by mouth once daily. budesonide-formoterol (SYMBICORT) 80-4.5 mcg/actuation inhaler Inhale 2 Puffs as instructed twice daily. pravastatin (PRAVACHOL) 20 mg ORAL tablet Take 40 mg by mouth daily at bedtime. No current facility-administered medications for this visit. PAST MEDICAL HISTORY Diagnosis Date Abdominal pain, left upper quadrant Diaphragmatic hernia without mention of obstruction or gangrene Other specified gastritis antral Unspecified asthma(493.90) PAST SURGICAL HISTORY Procedure Laterality Date DELIVERY ONLY 1995 , low cervical COLONOSCOP W/ OR W/O BRSH SPEC 08/04/06 Normal EGD W/O BRSH SPECIMEN W/BX 08/04/06 HH and Antral gastritis PAST SURGICAL HISTORY OF TENDON RELEASE BILAT THUMBS VAGINAL HYSTERECTOMY 1997 Hysterectomy, vaginal Social History: Social History Tobacco Use Smoking status: Never Substance Use Topics Alcohol use: No Drug use: No No family history on file. Review Of Systems GENERAL: No weight loss, malaise or fevers. HEENT: Negative for frequent or significant headaches, Ears Positive for hearing loss NECK: Negative for lumps, goiter, pain and significant neck swelling I have confirmed and edited as necessary the ROS obtained by others. Catia Barr PA-C PHYSICAL EXAM: There were no vitals taken for this visit. No weight on file for this encounter. General appearance: Well appearing, alert, in no acute distress, well-hydrated, well nourished. Cranial Nerves: III-XII: grossly intact Skin: Skin color, texture, turgor normal, no suspicious rashes or lesions Head: normocephalic, no masses, lesions, tenderness or abnormalities Ears: Bilateral external ear(s) normal, external auditory canal(s) clear, tympanic membrane(s) normal. Neuro: Gait normal. Mental status revealed patient to be alert and oriented. Mood is appropriate Catia Barr PA-C Medical Decision Making: Problems: Moderate: 1+ chronic illnesses with change Data: Unique test result(s) reviewed: 1 Risk: Low: Low risk from testing/treatment Medical Decision Making Level: 3 - Low Referring Provider: SELF [200] Allergies As of Date: 03/05/2024 Noted Allergy Reaction CODEINE 06/03/2006 12 - Shortness of Breath CONTRAST DYE 08/04/2006 4 - Hives PENICILLINS 06/03/2006 12 - Shortness of Breath SULFA (SULFONAMIDE ANTIBIOTICS) 06/03/2006 12 - Shortness of Breath TERAMYCIN (OXYTETRACYCLINE) 06/03/2006 12 - Shortness of Breath Date Reviewed: 03/05/2024 Reviewed by: Maria Teresa Brannon LPN - Fully Assessed Reason for Visit: Hearing Loss [1119] Cmt: Want to go over next steps. Primary Visit Diagnosis:Sensorineura l hearing loss (SNHL) of both ears [H90.3] Order(s):HEARING TEST/AUDIOGRAM [[id number]] Order #: [id number]: 1 HEARING AID CASIE-BINAURAL [[id number]] Order #: [id number] Prescriptions as of 03/05/2024 - nitrofurantoin monohydrate and macrocrystal (MACROBID) 100 mg capsule TAKE 1 CAPSULE TWICE A DAY - solifenacin (VESICARE) 5 mg tablet Take 1 tablet by mouth once daily. - MYRBETRIQ 50 mg Tb24 Take 50 mg by mouth once daily. - calcium carbonate (CALTRATE 600) 600 mg (1,500 mg) tab Take 600 mg by mouth once daily. - budesonide-formoterol (SYMBICORT) 80-4.5 mcg/actuation inhaler Inhale 2 Puffs as instructed twice daily. - pravastatin (PRAVACHOL) 20 mg ORAL tablet Take 40 mg by mouth da (more content not included)... Normal [facility] CN Office Visit (ROSAMARIA ) DIAMOND BALES ([id number]) 1965 F JOANN Date Time Provider Department 03/05/24 3:00 PM MARY HAMLIN During your visit today, we recorded the following information about you: Mary Hamlin AuD, CCC-A 03/05/2024 6:48 PM Signed [facility] [place] AUDIOLOGIC EVALUATION REPORT Name: Diamond Lyons [facility]#: [id number] Date of Service: 03/05/2024 Date of : 1965 Age: [age] year old Referred by: GARRET Shine Referred for: Evaluation of the cause of disorder of hearing, tinnitus, or balance. Referral documented: In an order in Epic Patient's major complaints: Reduced hearing in both ears, History of noise exposure from either occupational or recreational sources Diamond Lyons was seen for an initial audiologic evaluation. See Procedures Tab for Audiogram. 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 Refer to the Auditory Test Record for complete audiometric results. The patient was counseled about the test findings and appropriate audiologic recommendations were made. OTOSCOPY RIGHT EAR: Otoscopic inspection revealed ear canal was clear with an identifiable cone of light. LEFT EAR: Otoscopic inspection revealed ear canal was clear with an identifiable cone of light. TYMPANOMETRY Description of procedure: This test is an objective evaluation of middle ear function. CPT code: 67803 RIGHT EAR: Normal ME pressure with normal TM compliance (mobility). LEFT EAR: Normal ME pressure with normal TM compliance (mobility). ACOUSTIC REFLEXES Description of procedure: This test is an objective measure of auditory and facial nerve pathways. CPT code: 47674, 17744 RIGHT EAR PROBE EAR: (ipsi right stimulus ear; contralateral left stimulus ear): Acoustic Reflex Pattern Did not test Acoustic Reflex Decay (left stimulus ear): Did not test. LEFT EAR PROBE EAR: (ipsi left stimulus ear; contralateral right stimulus ear): Acoustic Reflex Pattern Did not test Acoustic Reflex Decay (right stimulus ear):Did not test. PURE TONE AUDIOMETRY AND SPEECH TESTING Description of procedure: This test is an objective evaluation hearing sensitivity via air and bone conduction and speech recognition testing. CPT code:00065 RIGHT EAR: Hearing Sensitivity: Mild sloping to moderate through 2000 Hz rising to normal at 6000 Hz then sloping to moderate at 8000 Hz: Sensorineural hearing loss Word Recognition Score: Excellent (100%). WRS is consistent with hearing sensitivity. Words were presented at 80 dB HL is above (greater than or equal to 60 dB HL) intensity level for average conversational speech. The NU-6 Ordered by Difficulty Word List (10 words) was used for testing. and Contralateral masking was used. LEFT EAR: Hearing Sensitivity: Mild sloping to moderate through 2000 Hz rising to mild at 6000 Hz then sloping to moderate at 8000 Hz: Sensorineural hearing loss Word Recognition Score: Excellent (100%). WRS is consistent with hearing sensitivity. Words were presented at 80 dB HL is above (greater than or equal to 60 dB HL) intensity level for average conversational speech. The NU-6 Ordered by Difficulty Word List (10 words) was used for testing. and Contralateral masking was used. RECOMMENDATIONS * Continue medical follow-up with Catia Barr PA-C. * The patient was counseled regarding benefits/limitations of hearing aids * Encouraged patient to reach out to insurance provider to determine if they are eligible for a hearing aid benefit. Patient was advised that if they return to [facility], the cost of hearing aids would likely be [id number]. Mary Hamlin, Jenny, [facility] [place] Abbrev- iation Definition Degree of hearing sensitivity dB range WNL within normal limits WNL 0 - 20 SNHL sensorineural hearing loss Mild 20-40 CHL conductive hearing loss Moderate 40-55 MHL mixed hearing loss Moderately-Severe 55-70 WRS word recognition score Severe 70-90 ME middle ear Profound 90 + TM tympanic membrane Allergies As of Date: 03/05/2024 Noted Allergy Reaction CODEINE 06/03/2006 12 - Shortness of Breath CONTRAST DYE 08/04/2006 4 - Hives PENICILLINS 06/03/2006 12 - Shortness of Breath SULFA (SULFONAMIDE ANTIBIOTICS) 06/03/2006 12 - Shortness of Breath TERAMYCIN (OXYTETRACYCLINE) 06/03/2006 12 - Shortness of Breath Date Reviewed: 03/05/2024 Review (more content not included)... Normal [facility] HEARING TEST/AUDIOGRAMon 05- 24-2024 Table formatting fro m the original result was not included. RIGHT EAR: Hearing Sensitivity: Mild sloping to moderate through 2000 Hz rising to normal at 6000 Hz then sloping to moderate at 8000 Hz: Sensorineural hearing loss Word Recognition Score: Excellent (100%). WRS is consistent with hearing sensitivity. Words were presented at 80 dB HL is above (greater than or equal to 60 dB HL) intensity level for average conversational speech. The NU-6 Ordered by Difficulty Word List (10 words) was used for testing. and Contralateral masking was used. LEFT EAR: Hearing Sensitivity: Mild sloping to moderate through 2000 Hz rising to mild at 6000 Hz then sloping to moderate at 8000 Hz: Sensorineural hearing loss Word Recognition Score: Excellent (100%). WRS is consistent with hearing sensitivity. Words were presented at 80 dB HL is above (greater than or equal to 60 dB HL) intensity level for average conversational speech. The NU-6 Ordered by Difficulty Word List (10 words) was used for testing. and Contralateral masking was used. RECOMMENDATIONS * Continue medical follow-up with Catia Barr PA-C. * The patient was counseled regarding benefits/limitations of hearing aids * Encouraged patient to reach out to insurance provider to determine if they are eligible for a hearing aid benefit. Patient was advised that if they return to [facility], the cost of hearing aids would likely be [id number]. Jenny Estrella, [facility] Vital Signs Date Time Vital Sign Value Performing Clinician Facility 07-22-2024 10:00-0400 Body temperature 98.01 [degF] Unique Gallardo APRN-MISTY Work Phone: [facility] 07-22-2024 10:00-0400 Diastolic blood pressure 88 mm[Hg] Unique Gallardo APRN-ELECTRONIC INSTALLER Work Phone: [facility] 07-22-2024 10:00-0400 Heart rate 78 /min Unique Gallardo APRN-ELECTRONIC INSTALLER Work Phone: [facility] 07-22-2024 10:00-0400 Respiratory rate 18 /min Unique Gallardo APRN-ELECTRONIC INSTALLER Work Phone: [facility] 07-22-2024 10:00-0400 SaO2% (BldA) [Mass fraction] 95 % Unique Gallardo CAILINELECTRONIC INSTALLER Work Phone: [facility] 07-22-2024 10:00-0400 Systolic blood pressure 151 mm[Hg] Unique Gallardo CAILINELECTRONIC INSTALLER Work Phone: [facility] 04-07-2024 15:05-0400 Body height 152.4 cm Pacc 1 Work Phone: [facility] 04-07-2024 15:05-0400 Body mass index (BMI) [Ratio] 36.13 kg/m2 Pacc 1 Work Phone: [facility] 04-07-2024 15:05-0400 Body temperature 97.5 [degF] Pacc 1 Work Phone: [facility] 04-07-2024 15:05-0400 Body weight 83.92 kg Pacc 1 Work Phone: [facility] 04-07-2024 15:05-0400 Diastolic blood pressure 68 mm[Hg] Pacc 1 Work Phone: [facility] 04-07-2024 15:05-0400 Heart rate 102 /min Pacc 1 Work Phone: [facility] 04-07-2024 15:05-0400 Respiratory rate 18 /min Pacc 1 Work Phone: [facility] 04-07-2024 15:05-0400 SaO2% (BldA) [Mass fraction] 96 % Pacc 1 Work Phone: [facility] 04-07-2024 15:05-0400 Systolic blood pressure 122 mm[Hg] Pacc 1 Work Phone: [facility] Encounters Encounter Date Encounter Type Care Provider Facility Start: 07-23-2024 End: 07-23-2024 Orders Only Sharon Champion DO Work Phone: Orthopaedics Comment on above: Trigger finger of le ft thumb (Primary Dx) Start: 07-22-2024 End: 07-22-2024 Office outpatient new 45 minutes Unique Gallardo SENIOR NURSE MANAGER-ELECTRONIC INSTALLER Work Phone: [facility] [place] [facility] Comment on above: Encounter for follow -up (Primary Dx); Abnormal finding on breast imaging Start: 07-22-2024 ambulatory ALEKSANDR Nash y:MARKUS Start: 07-22-2024 End: 07-22-2024 Subsequent hospital visit by physician Unique Gallardo SENIOR NURSE MANAGER-ELECTRONIC INSTALLER Work Phone: [facility] [place] [facility] Start: 07-20-2024 ambulatory UNIQUE Anderson ity:MARKUS Start: 07-20-2024 End: 07-20-2024 Subsequent hospital visit by physician Unique Gallardo SENIOR NURSE MANAGER-ELECTRONIC INSTALLER Work Phone: [facility] [place] [facility] Comment on above: Arrived Start: 06-17-2024 End: 06-17-2024 ambulatory SHARON CHAMPION Facility:[facility] Start: 06-17-2024 End: 06-17-2024 Patient encounter procedure Sharon Champion DO Work Phone: Orthopaedics Comment on above: Trigger finger of le ft thumb (Primary Dx) Start: 06-04-2024 End: 06-04-2024 ambulatory MICHELINE OJEDA Facility:[facility] Start: 06-04-2024 End: 06-04-2024 Patient encounter procedure Micheline Ojeda AUD Work Phone: Audiology Comment on above: Sensorineural hearin g loss, bilateral (Primary Dx) Start: 04-22-2024 End: 04-22-2024 ambulatory SHARON CHAMPION Facility:[facility] Start: 04-22-2024 End: 04-22-2024 Patient encounter procedure Sharon Champion DO Work Phone: Orthopaedics Comment on above: Trigger middle finge r of right hand (Primary Dx) Start: 04-08-2024 End: 04-08-2024 ambulatory UNKNOWN PROVIDER Facility:[facility] Start: 04-07-2024 End: 04-07-2024 Admission to establishment Pac Bertha 1 Work Phone: Pre Anesthesia Start: 04-07-2024 End: 04-07-2024 ambulatory SHARON CHAMPION Facility:[facility] Start: 04-07-2024 End: 04-07-2024 Anesthesia consultation [facility] 1 Work Phone: Pre Anesthesia Comment on above: Pre-operative examin ation (Primary Dx); Recurrent UTI; Mixed hyperlipidemia; Mild intermittent asthma without complication; Class 2 obesity due to excess calories with body mass index (BMI) of 36.0 to 36.9 in adult, unspecified whether serious comorbidity present Start: 04-07-2024 End: 04-07-2024 Preprocedural examination done [facility] 1 Work Phone: [facility] Work Phone: Start: 04-02-2024 Orders Only Sharon Pete Akira DO Work Phone: Orthopaedics Comment on above: Trigger middle finge r of right hand (Primary Dx) Start: 03-31-2024 End: 03-31-2024 Patient encounter procedure Sharon Gordonkostas DO Work Phone: Orthopaedics Comment on above: Trigger middle finge r of right hand (Primary Dx) Start: 03-31-2024 End: 03-31-2024 ambulatory BRYCE Arevalo (HIST) VIC Facility:[facility] Start: 03-31-2024 End: 03-31-2024 Subsequent hospital visit by physician [facility] Work Phone: Radiology Comment on above: Pain [R52] Start: 03-05-2024 End: 03-05-2024 ambulatory CATIA BARR Facility:[facility] Start: 03-05-2024 End: 03-05-2024 Patient encounter procedure Catia Barr PA-C Work Phone: Otolaryngology Comment on above: Sensorineural hearin g loss (SNHL) of both ears (Primary Dx) Sensorineural hearin g loss, bilateral (Primary Dx) Start: 12-15-2023 Orders Only Catia Webber Work Phone: Appointment Center Comment on above: Other specified hear ing loss, unspecified ear (Primary Dx) Start: 01-15-2021 End: 01-15-2021 Patient encounter procedure [facility] Debbie [facility] Start: 12-25-2020 End: 12-25-2020 Patient encounter procedure [facility] Procedures Date Procedure Procedure Detail Performing Clinician Start: 07-22-2024 Us breast uni real t blossom with image limited Unique Gallardo APRN-ELECTRONIC INSTALLER Work Phone: Start: 07-22-2024 Diagnostic mammograp hy computer-aided detcj uni Unique Gallardo APRN-ELECTRONIC INSTALLER Work Phone: Start: 03-31-2024 Radex hand minimum 3 views Sharon Champion DO Work Phone: Start: 03-05-2024 HEARING TEST/AUDIOGRAM Mary Barron, CCC-A Work Phone: Start: 10-12-2003 Lipid 1996 panel - S heriberto or Plasma Catia Barr PA-C Work Phone: Plan of Treatment Date Care Activity Detail Author Start: 07-14-2025 Screening for malignant neoplasm of breast MAMMOGRAM SCREENING DISCUSSION [facility] Start: 08-26-2024 End: 08-26-2024 Patient encounter procedure 08/26/2024 10:45 AM EST Office Visit Orthopaedics [address] [place] [address] Sharon Champion DO [address] [place] [id number] 1st post op Lt thumb trigger release 08/10/24 Orthopaedics Comment on above: 1st post op Lt thumb trigger release 08/10/24 Start: 08-10-2024 End: 08-10-2024 Admission to same day surgery center 08/10/2024 9:36 AM EDT - 08/10/2024 10:31 AM EDT Surgery [facility] Surgery [address] [place] [address] Sharon Champion, DO [address] [place] [address] RELEASE TRIGGER THUMB [facility] Surgery Comment on above: RELEASE TRIGGER THUM B Start: 08-10-2024 Subsequent hospital visit by physician 08/10/2024 9:36 AM EDT Hospital Encounter [facility] [address] [place] [address] Sharon Champion, [address] [place] [address] Trigger finger of left thumb [M65.312] [facility] Surgery Comment on above: Trigger finger of le ft thumb [M65.312] Start: 08-10-2024 End: 08-10-2024 Tendon sheath incision RELEASE TRIGGER THUMB Trigger finger of left thumb 08/10/2024 9:36 AM EDT ME OR Start: 08-06-2024 Zoster vaccine hzv live for subcutaneous use ZOSTER (SHINGLES) VACCINE (2 of 2) [facility] Start: 07-22-2024 End: 07-22-2024 Patient encounter procedure 07/22/2024 11:00 AM EDT Office Visit Markus Tovar Mammography at [facility] [address] [place], [place] [id number] Unique Gallardo, SENIOR NURSE MANAGER-ELECTRONIC INSTALLER [address], [address] [place] [address] Markus Tovar Mammography at [facility] Start: 06-13-2024 Covid-19 Vaccine () Covid-19 Vaccine () [facility] Start: 06-13-2024 Covid-19 Vaccine ( season) Covid-19 Vaccine ( season) [facility] Start: 06-13-2024 Influenza vaccination [facility] Start: 06-04-2024 End: 06-04-2024 Patient encounter procedure 06/04/2024 10:30 AM EDT Office Visit Audiology [address] [address] Micheline Ojeda, AUD [address] [place] [address] hearing aid evalutation Audiology Comment on above: hearing aid evalutat ion Start: 04-22-2024 End: 04-22-2024 Patient encounter procedure 04/22/2024 2:45 PM EDT Office Visit Orthopaedics [address] [place], [place] [id number] Sharon Champion DO [address] [place] [address] 1st post op Rt middle trigger finger 04/08/24 Orthopaedics Comment on above: 1st post op Rt middl e trigger finger 04/08/24 Start: 2024 RSV Vaccine (1 - 1-dose 60+ series) RSV Vaccine (1 - 1-dose 60+ series) [facility] Start: 2024 RSV Vaccine (1 - Ris k 60-74 years 1-dose series) RSV Vaccine (1 - Risk 60-74 years 1-dose series) [facility] Start: 04-08-2024 End: 04-08-2024 Admission to same day surgery center 04/08/2024 12:34 PM EDT - 04/08/2024 1:28 PM EDT Surgery [facility] Surgery [address] [place] [address] Sharon Champion DO [address] [place], [place] [id number] RELEASE TRIGGER FINGER [facility] Surgery Comment on above: RELEASE TRIGGER FING ER Start: 04-08-2024 End: 04-08-2024 Anesthesia consultation 04/08/2024 12:34 PM EDT Anesthesia Event [facility] Surgery [address] [place] [address] Armando Rodriguez MD [address] [place] [address] [facility] Start: 04-08-2024 Subsequent hospital visit by physician [facility] Surgery Comment on above: Trigger middle finge r of right hand [M65.331] Start: 04-08-2024 End: 04-08-2024 Tendon sheath incision RELEASE TRIGGER FINGER Trigger middle finger of right hand 04/08/2024 12:34 PM EDT ME OR Start: 10-13-2023 Behavioral Health Screening Behavioral Health Screening [facility] Start: 10-13-2023 Depression Assessment Depression Ass essment [facility] Start: 06-13-2023 Covid-19 Vaccine ( season) Covid-19 Vaccine () [facility] Start: 06-13-2023 Influenza vaccination Influenza Vacc ine (#1) [facility] Start: 2014 Shingrix Vaccine (1 of 2) Shingrix Vaccine (1 of 2) [facility] Start: 2009 Diabetes Screening Diabetes Screenin g [facility] Start: 2009 Lipid panel Lipid Screening [facility] Start: 2009 Screening for malignant neoplasm of colon [facility] Start: 06-04-2005 Screening for malignant neoplasm of cervix Pap Testing [facility] Start: 2004 Lipid panel LIPID SCREENING [facility] Start: 2004 Screening for malignant neoplasm of breast Mammogram Screening [facility] Start: 06-04-2003 Screening for malignant neoplasm of cervix Cervical Cancer Screening [facility] Start: 1994 Screening for malignant neoplasm of cervix HPV Testing [facility] Start: 1985 Screening for malignant neoplasm of cervix CERVICAL CANCER SCREENING DISCUSSION [facility] Start: 1983 Third diphtheria, tetanus and acellular pertussis (DTaP) vaccination TDAP (ADULT) [facility] Start: 1983 Urine microalbumin profile DTaP,Tdap,Td Vaccine (1 - Tdap) [facility] Start: 1982 Annual PCP Team Chronic Disease Visit Annual PCP Team Chronic Disease Visit [facility] Start: 1982 Anxiety Screening Anxiety Screening [facility] Start: 1982 Depression Screening Depression Scre ening [facility] Start: 1982 Hepatitis C screening Hepatitis C Sc reening [facility] Start: 1982 HIV screening HIV Screening [facility] Start: 1982 Spirometry Spirometry [facility] Start: 1979 HIV screening HIV SCREENING DISCUSSION [facility] Start: 1964 Covid-19 Vaccine (#1) Covid-19 Vacci ne (#1) [facility] Start: 1964 Hepatitis C screening HEPATITI S C VIRUS SCREENING [facility] Start: [address] [facility] Hearing aid examination & selection binaural HEARING AID CASIE-BINAURAL Procedures Routine Sensorineural hearing loss (SNHL) of both ears Ordered: 03/05/2024 [facility] Work Phone: Comment on above: Ordered: 03/05/2024 End: 12-15-2024 HEARING TEST/AUDIOGRAM HEARING TEST/AUDIOGRAM Audiology Routine Other specified hearing loss, unspecified ear 1 Occurrences starting 12/16/2023 until 12/15/2024 [facility] Work Phone: Comment on above: 1 Occurrences starti ng 12/16/2023 until 12/15/2024 End: 07-20-[address] [facility] Work Phone: Comment on above: 1 Occurrences starti ng 07/20/2024 until 07/20/2024 Tendon sheath incision RELEASE T VENEER STAPLER FINGER Trigger middle finger of right hand [facility] Immunizations Immunization Date Immunization Notes Care Provider Lior sarabai 06-11-2024 zoster vaccine, unspecified formulation Unique Gallardo APRN-ELECTRONIC INSTALLER Work Phone: [facility] 07-07-2023 influenza virus vaccine, unspecified formulation Unique Gallardo SENIOR NURSE MANAGER-ELECTRONIC INSTALLER Work Phone: [facility] Payers Date Payer Category Payer Unknown [id number] 2023 Unknown [id number] 1965 Unknown [id number] 1964 Unknown [id number] 1964 Unknown [id number] 2.16. [id number] 1964 Unknown [id number] 2.16. [id number] 1964 Unknown [id number] 2.16. [id number] 1964 Unknown [id number] [id number]. [id number] Unknown [id number] Social History Date Type Detail Facility Start: 03-31-2024 End: 07-22-2024 Tobacco smoking status NHIS Never smoked tobacco [facility] Start: 04-22-2015 End: 06-17-2024 Alcohol intake Current non-drinker of alcohol (finding) [facility] Start: 1965 Sex Assigned At Not on file [facility] Start: 03-05-2024 End: 06-17-2024 Gender identity Not on file [facility] Start: 03-05-2024 End: 06-17-2024 History of Social function [facility] National Score (1-100), lower number is lower risk 54 [facility] Start: 03-31-2024 End: 07-22-2024 Tobacco use and exposure Smokeless tobacco non-user [facility] Tobacco smoking stat us NHIS Tobacco smoking consumption unknown [facility] Start: 07-22-2024 Alcoholic beverage intake Ex-drinker (finding) [facility] Clinical Notes 03-05-2024 to 07-22-2024 Patricia Eng - 07/22/2024 12:20 PM ASHWINI Hilliard - 07/22/2024 11:00 AM ASHWINI Hilliard - 07/22/2024 11:00 AM Dallas Lowe RN - 07/22/2024 11:00 AM EDT Note Date & Type Note Facility 07-22-2024 History of Present illness Narrative Patient offered a medical hedis registered nurse rn for sensitive exam. Pt declined documented in this encounter [facility] 07-22-2024 History and physical note Date of Service: 07/22/2024 History of Present Illness: Chief Complaint Patient presents with New Patient 2nd opinion regarding recent abnormal right breast imaging, biopsy was recommended. Pt denies any breast changes. Cynthia Wallis is a 59 y.o. postmenopausal female who presents to the [facility] on 07/22/2024 for a second opinion regarding abnormal outside breast imaging. -07/14/24 she had a bilateral screening mammogram at outside facility that showed focal area of architectural distortion/nodularity in the slightly upper central right breast measuring 1.7 cm (Bi-RADS 0). -07/16/24 right breast US was performed. There was a 1 x 0.9 x 0.9 cm hypoechoic irregular nodule in the 11:00 position 7 cm from the nipple and biopsy was recommended (Bi-RADS 4). Cynthia Wallis reports examining her breasts intermittently. She has not noted any masses, skin changes, nipple discharge, or pain. She denies any history of breast problems or previous breast biopsy. Family history is outlined below. Past Medical History: Past Medical History: Diagnosis Date Asthma Hiatal hernia 08/04/2006 High cholesterol [place] (hard of hearing) bilateral Past Surgical History: Past Surgical History: Procedure Laterality Date HYSTERECTOMY 1997 vaginal, bilateral oophorectomy SECTION 10/13/1995 COLONOSCOPY DIAGNOSTIC OTHER SURGICAL tendon release bilateral thumbs OTHER SURGICAL Right Righ Middle trigger finger release Family/Social History: Her family history includes Colorectal Cancer in her paternal cousin, paternal cousin, and paternal grandfather; Other - Specify in her father; Prostate Cancer in her father. She reports that she has never smoked. She has never used smokeless tobacco. She reports that she does not currently use alcohol. She reports that she does not use drugs. Medications/Allergies/Immunizatio ns: Current Outpatient Medications Medication Sig Calcium 200 MG tablet Take 1,200 mg by mouth daily. Coenzyme Q10 (Co Q10) 100 MG capsule Take 2 capsules by mouth daily. fluticasone 110 MCG/ACT Aerosol inhaler Inhale 2 puffs every 12 hours. nitrofurantoin 100 MG capsule Take 1 capsule by mouth at bedtime. Allergies Allergen Reactions Codeine Dyspnea Ivp Dye, Iodine Containing Hives Oxytetracycline Dyspnea Penicillins Dyspnea Sulfa Antibiotics Dyspnea Immunization History Administered Date(s) Administered [id number] COVID-19 monovalent vaccine, mRNA, Pfizer, 0.3 ML 12/25/2020, 01/15/2021, 09/07/[id number] COVID-19 bivalent vaccine (SumoSkinny) 12yr +, 30mcg/0.3mL 07/05/2022 COVID-19 MRNA (Veosearch) 12+YR, 30 MCG/0.3 ML 07/18/2023, 07/06/2024 Review of Systems: General/Constitutional: Negative for fever, chills, fatigue, recent weight gain or loss. HEENT: +[place] No visual disturbances, diplopia. No tinnitus, sore throat, nosebleeds, and rhinorrhea. No dysphagia or odynophagia. Cardiovascular: Negative for palpitations, chest pain, dyspnea on exertion. Respiratory: +asthma No history of TB exposure. Negative for chronic or productive cough, hemoptysis. Denies shortness of breath. Lymph/Heme: No history of hematologic magligancies or bleeding disorders. Gastrointestinal: Negative for abdominal pain, nausea, vomiting, diarrhea, constipation or changes in bowel habits. Genitourinary: Negative for dysuria or hematuria. No frequency, urgency, or hesitancy. Musculoskeletal: Negative for arthralgias, myalgias, or back pain. Neurological: Negative for dizziness, syncope, focal weakness or headaches. Psychiatric: Negative for depression, anxiety or mood disorders. Endocrine: Negative for polyuria, polydipsia or hot/cold intolerance. Skin: Negative for acute skin lesions. Physical Exam: Vital Signs: BP 151/88 (BP Position: Sitting) Pulse 78 Temp 98 F (36.7 C) (Infrared) Resp 18 SpO2 95% Smoking Status Never , General/Constitutional: Well developed, well nourished female, who looks their stated age of 59 y.o.. No acute distress. HEENT: Head: Normocephalic and atraumatic. Eyes: Pupils are equal, round, and reactive to light and accomodation. Extraocular movements are intact. Sclerae are anicteric. Neck: Supple, non-tender, with no lymphadenopathy. Cardiac: Regular rate and rhythm. Normal S1, S2. No murmurs, rubs or gallops. Pulmonary/Chest: Lungs are clear to auscultation bilaterally. No wheezes, rhonchi or rales noted. Breast/ChestWall: Breasts appear symmetric. There are no dominant masses present in either breast. There are no nipple abnormalities or skin changes bilaterally. There is no supraclavicular or axillary adenopathy present. Abdominal: Normoactive bowel sounds in all four quadrants. Soft, non-tender, non-distended. No organomegaly. Extremities: Normal range of motion in all four extremities, with normal strength equally and symmetrically. No cyanosis or clubbing or peripheral edema. Peripheral Vascular Exam: Normal radial, posterior tibialis, and dorsalis pedis arterial pulses. Neurological: Conscious, alert and oriented. Cranial nerves II through XII are intact grossly and symmetrically. No focal neurologic deficit. Skin: Skin is warm and dry. She is not diaphoretic. Psychiatric: Appropiate mood and affect for her clinical situation. Imaging Data: Narrative & Impression EXAM: BREAST IMAGING SECOND OPINION READING, 07/20/2024 09:36 AM CLINICAL INDICATIONS: The patient presents to the clinic of Unique Gallardo for evaluation. The patient was initially recalled from an outside screening mammogram in July 2024 for further evaluation of a focal area of architectural distortion/nodularity in the slightly upper central portion of the right breast. The patient underwent a right breast ultrasound which identified a 1 cm x 0.9 cm x 0.9 cm hypoechoic irregular nodule followed in wide at 11:00 position of the breast 7 cm the nipple. Biopsy was recommended. Requested evaluation of outside breast imaging. COMPARISON: Bilateral screening mammogram with tomosynthesis July 14, 2024. Right breast ultrasound July 16, 2024. Remote mammograms from February 06, 2023, November 23, 2021, October 23, 2019, and January 01, 2019 were reviewed for comparative purposes. MAMMOGRAM FINDINGS: The breasts have scattered areas of fibroglandular density. With regards to the bilateral screening mammogram of July 14, 2024 I do not clearly appreciate the described focal area of nodularity/architectural distortion in the upper central right breast described in the outside report. To me, the mammogram appears similar to the comparison study is without a definite suspicious finding. ULTRASOUND FINDINGS: With regard to the right breast ultrasound July 16, 2024 the outside motor teacher measures a area in the 11:00 right breast. I do not appreciate a specific abnormality at the measured site. To me this has an appearance most consistent with a fat lobule. IMPRESSION IMPRESSION: Overall, it is unclear that biopsy is warranted at this time. The patient should present for a right diagnostic mammogram to include 2-D/3-D MLO, CC, and ML views and ultrasound for clarification of the reported outside imaging findings. Narrative & Impression EXAM: MAMMO DIAGNOSTIC WITH FABY RIGHT, US BREAST LIMITED UNILATERAL RIGHT, 07/22/2024 11:48 AM (accession [id number]), 07/22/2024 13:06 PM (accession [id number]) CLINICAL INDICATIONS AND HISTORY: outside BR 4 - second op by Dr. López R92.8:Abnormal finding on breast imaging The patient presents for further evaluation of findings identified on review of outside breast imaging. Outside institution noted suspicious findings in the right breast for which biopsy was suggested however were not readily apparent on second opinion review of outside breast imaging. The patient presents for additional imaging to clarify the suspicious findings described the outside institution. COMPARISON: July 16, 2024, July 14, 2024, February 06, 2023, November 23, 2021, October 23, 2019, January 01, 2019 MAMMOGRAM TECHNIQUE: 2-D ML, CC, MLO, and spot compression MLO and CC views were obtained of the right breast. 3-D digital tomosynthesis images were also acquired in the same projections. Computer aided detection was utilized. MAMMOGRAPHIC FINDINGS: Breast Density: The breasts have scattered areas of fibroglandular density. The additional diagnostic views of the right breast did not confirm evidence of persistent architectural distortion in the upper central right breast as described in the outside institution. The area of interest has a similar mammographic appearance dating back to 2018. No dominant mass, distortion, or suspicious microcalcification in the right breast. Ultrasound was pursued for further clarification of the outside imaging findings. ULTRASOUND TECHNIQUE: Multiple real-time bradshaw-scale images of the right breast in the 11 o'clock axis are performed. Color Doppler was used to assess vascular flow. ULTRASOUND FINDINGS: There is no evidence of mass lesions, architectural distortion, or abnormal blood flow. Only normal-appearing tissues are noted. The reported hypoechoic irregular nodule is not reproducible. IMPRESSION IMPRESSION: No specific mammographic or sonographic evidence of malignancy in the right breast. BI-RADS: 1: Negative Recommendation: Routine mammography. Recommendation Laterality: Bilateral MQSA Facility: [facility], [address] [place] [address], Impression and Plan: Impression: Cynthia Wallis is a 59 yo female with suspicious right breast structure identified on outside mammogram and US 07/2024, biopsy suggested (Bi-RADS 4). Outside breast imaging reviewed by [facility] - additional imaging suggested. Right diagnostic mammogram and right breast US at [facility] today appeared negative, return to routine screening suggested (Bi-RADS 1). Plan: I reassured Cynthia Wallis that her clinical breast exam is without suspicious findings today. Her outside breast imaging was reviewed by [facility]. I shared the results of today's right mammogram and right breast ultrasound with her in detail. I reassured her that her breast imaging appears stable and benign. We do not feel that she needs a breast biopsy at this time. She may return to routine screening with annual bilateral mammography (due July 2025). I stressed the importance of regular self breast exams as well as annual clinical breast exams with her PCP or SPRAY GUN REPAIRER HELPER. She will return to our breast clinic as needed. I have given her my office number and instructed her to notify us if she has any breast problems in the future. Cynthia is agreeable to this plan and all of her questions were answered today. This patient was seen in the department of [facility] Radiology today. [facility] 07-22-2024 History and physical note Date of Service: 07/22/2024 History of Present Illness: Chief Complaint Patient presents with New Patient 2nd opinion regarding recent abnormal right breast imaging, biopsy was recommended. Pt denies any breast changes. Cynthia Wallis is a 59 y.o. postmenopausal female who presents to the [facility] on 07/22/2024 for a second opinion regarding abnormal outside breast imaging. -07/14/24 she had a bilateral screening mammogram at outside facility that showed focal area of architectural distortion/nodularity in the slightly upper central right breast measuring 1.7 cm (Bi-RADS 0). -07/16/24 right breast US was performed. There was a 1 x 0.9 x 0.9 cm hypoechoic irregular nodule in the 11:00 position 7 cm from the nipple and biopsy was recommended (Bi-RADS 4). Cynthia Wallis reports examining her breasts intermittently. She has not noted any masses, skin changes, nipple discharge, or pain. She denies any history of breast problems or previous breast biopsy. Family history is outlined below. Past Medical History: Past Medical History: Diagnosis Date Asthma Hiatal hernia 08/04/2006 High cholesterol [place] (hard of hearing) bilateral Past Surgical History: Past Surgical History: Procedure Laterality Date HYSTERECTOMY 1997 vaginal, bilateral oophorectomy SECTION 10/13/1995 COLONOSCOPY DIAGNOSTIC OTHER SURGICAL tendon release bilateral thumbs OTHER SURGICAL Right Righ Middle trigger finger release Family/Social History: Her family history includes Colorectal Cancer in her paternal cousin, paternal cousin, and paternal grandfather; Other - Specify in her father; Prostate Cancer in her father. She reports that she has never smoked. She has never used smokeless tobacco. She reports that she does not currently use alcohol. She reports that she does not use drugs. Medications/Allergies/Immunizatio ns: Current Outpatient Medications Medication Sig Calcium 200 MG tablet Take 1,200 mg by mouth daily. Coenzyme Q10 (Co Q10) 100 MG capsule Take 2 capsules by mouth daily. fluticasone 110 MCG/ACT Aerosol inhaler Inhale 2 puffs every 12 hours. nitrofurantoin 100 MG capsule Take 1 capsule by mouth at bedtime. Allergies Allergen Reactions Codeine Dyspnea Ivp Dye, Iodine Containing Hives Oxytetracycline Dyspnea Penicillins Dyspnea Sulfa Antibiotics Dyspnea Immunization History Administered Date(s) Administered 2735-4556 COVID-19 monovalent vaccine, mRNA, Pfizer, 0.3 ML 12/25/2020, 01/15/2021, 09/07/[id number] COVID-19 bivalent vaccine (SumoSkinny) 12yr +, 30mcg/0.3mL 07/05/2022 COVID-19 MRNA (Veosearch) 12+YR, 30 MCG/0.3 ML 07/18/2023, 07/06/2024 Review of Systems: General/Constitutional: Negative for fever, chills, fatigue, recent weight gain or loss. HEENT: +[place] No visual disturbances, diplopia. No tinnitus, sore throat, nosebleeds, and rhinorrhea. No dysphagia or odynophagia. Cardiovascular: Negative for palpitations, chest pain, dyspnea on exertion. Respiratory: +asthma No history of TB exposure. Negative for chronic or productive cough, hemoptysis. Denies shortness of breath. Lymph/Heme: No history of hematologic magligancies or bleeding disorders. Gastrointestinal: Negative for abdominal pain, nausea, vomiting, diarrhea, constipation or changes in bowel habits. Genitourinary: Negative for dysuria or hematuria. No frequency, urgency, or hesitancy. Musculoskeletal: Negative for arthralgias, myalgias, or back pain. Neurological: Negative for dizziness, syncope, focal weakness or headaches. Psychiatric: Negative for depression, anxiety or mood disorders. Endocrine: Negative for polyuria, polydipsia or hot/cold intolerance. Skin: Negative for acute skin lesions. Physical Exam: Vital Signs: BP 151/88 (BP Position: Sitting) Pulse 78 Temp 98 F (36.7 C) (Infrared) Resp 18 SpO2 95% Smoking Status Never , General/Constitutional: Well developed, well nourished female, who looks their stated age of 59 y.o.. No acute distress. HEENT: Head: Normocephalic and atraumatic. Eyes: Pupils are equal, round, and reactive to light and accomodation. Extraocular movements are intact. Sclerae are anicteric. Neck: Supple, non-tender, with no lymphadenopathy. Cardiac: Regular rate and rhythm. Normal S1, S2. No murmurs, rubs or gallops. Pulmonary/Chest: Lungs are clear to auscultation bilaterally. No wheezes, rhonchi or rales noted. Breast/ChestWall: Breasts appear symmetric. There are no dominant masses present in either breast. There are no nipple abnormalities or skin changes bilaterally. There is no supraclavicular or axillary adenopathy present. Abdominal: Normoactive bowel sounds in all four quadrants. Soft, non-tender, non-distended. No organomegaly. Extremities: Normal range of motion in all four extremities, with normal strength equally and symmetrically. No cyanosis or clubbing or peripheral edema. Peripheral Vascular Exam: Normal radial, posterior tibialis, and dorsalis pedis arterial pulses. Neurological: Conscious, alert and oriented. Cranial nerves II through XII are intact grossly and symmetrically. No focal neurologic deficit. Skin: Skin is warm and dry. She is not diaphoretic. Psychiatric: Appropiate mood and affect for her clinical situation. Imaging Data: Narrative & Impression EXAM: BREAST IMAGING SECOND OPINION READING, 07/20/2024 09:36 AM CLINICAL INDICATIONS: The patient presents to the [facility] of [facility] for evaluation. The patient was initially recalled from an outside screening mammogram in July 2024 for further evaluation of a focal area of architectural distortion/nodularity in the slightly upper central portion of the right breast. The patient underwent a right breast ultrasound which identified a 1 cm x 0.9 cm x 0.9 cm hypoechoic irregular nodule followed in wide at 11:00 position of the breast 7 cm the nipple. Biopsy was recommended. Requested evaluation of outside breast imaging. COMPARISON: Bilateral screening mammogram with tomosynthesis July 14, 2024. Right breast ultrasound July 16, 2024. Remote mammograms from February 06, 2023, November 23, 2021, October 23, 2019, and January 01, 2019 were reviewed for comparative purposes. MAMMOGRAM FINDINGS: The breasts have scattered areas of fibroglandular density. With regards to the bilateral screening mammogram of July 14, 2024 I do not clearly appreciate the described focal area of nodularity/architectural distortion in the upper central right breast described in the outside report. To me, the mammogram appears similar to the comparison study is without a definite suspicious finding. ULTRASOUND FINDINGS: With regard to the right breast ultrasound July 16, 2024 the outside motor teacher measures a area in the 11:00 right breast. I do not appreciate a specific abnormality at the measured site. To me this has an appearance most consistent with a fat lobule. IMPRESSION IMPRESSION: Overall, it is unclear that biopsy is warranted at this time. The patient should present for a right diagnostic mammogram to include 2-D/3-D MLO, CC, and ML views and ultrasound for clarification of the reported outside imaging findings. Narrative & Impression EXAM: MAMMO DIAGNOSTIC WITH FABY RIGHT, US BREAST LIMITED UNILATERAL RIGHT, 07/22/2024 11:48 AM (accession [id number]), 07/22/2024 13:06 PM (accession [id number]) CLINICAL INDICATIONS AND HISTORY: outside BR 4 - second op by Dr. López R92.8:Abnormal finding on breast imaging The patient presents for further evaluation of findings identified on review of outside breast imaging. Outside institution noted suspicious findings in the right breast for which biopsy was suggested however were not readily apparent on second opinion review of outside breast imaging. The patient presents for additional imaging to clarify the suspicious findings described the outside institution. COMPARISON: July 16, 2024, July 14, 2024, February 06, 2023, November 23, 2021, October 23, 2019, January 01, 2019 MAMMOGRAM TECHNIQUE: 2-D ML, CC, MLO, and spot compression MLO and CC views were obtained of the right breast. 3-D digital tomosynthesis images were also acquired in the same projections. Computer aided detection was utilized. MAMMOGRAPHIC FINDINGS: Breast Density: The breasts have scattered areas of fibroglandular density. The additional diagnostic views of the right breast did not confirm evidence of persistent architectural distortion in the upper central right breast as described in the outside institution. The area of interest has a similar mammographic appearance dating back to 2019. No dominant mass, distortion, or suspicious microcalcification in the right breast. Ultrasound was pursued for further clarification of the outside imaging findings. ULTRASOUND TECHNIQUE: Multiple real-time bradshaw-scale images of the right breast in the 11 o'clock axis are performed. Color Doppler was used to assess vascular flow. ULTRASOUND FINDINGS: There is no evidence of mass lesions, architectural distortion, or abnormal blood flow. Only normal-appearing tissues are noted. The reported hypoechoic irregular nodule is not reproducible. IMPRESSION IMPRESSION: No specific mammographic or sonographic evidence of malignancy in the right breast. BI-RADS: 1: Negative Recommendation: Routine mammography. Recommendation Laterality: Bilateral MQSA Facility: [facility], [address] [place] [address], Impression and Plan: Impression: Cynthia Wallis is a 59 yo female with suspicious right breast structure identified on outside mammogram and US 07/2024, biopsy suggested (Bi-RADS 4). Outside breast imaging reviewed by [facility] - additional imaging suggested. Right diagnostic mammogram and right breast US at [facility] today appeared negative, return to routine screening suggested (Bi-RADS 1). Plan: I reassured Cynthia Wallis that her clinical breast exam is without suspicious findings today. Her outside breast imaging was reviewed by [facility]. I shared the results of today's right mammogram and right breast ultrasound with her in detail. I reassured her that her breast imaging appears stable and benign. We do not feel that she needs a breast biopsy at this time. She may return to routine screening with annual bilateral mammography (due July 2025). I stressed the importance of regular self breast exams as well as annual clinical breast exams with her PCP or SPRAY GUN REPAIRER HELPER. She will return to our breast clinic as needed. I have given her my office number and instructed her to notify us if she has any breast problems in the future. Cynthia is agreeable to this plan and all of her questions were answered today. This patient was seen in the department of [facility] today. documented in this encounter [facility] 07-22-2024 History of Present illness Narrative Patient offered a medical hedis registered nurse rn for sensitive exam. Pt declined documented in this encounter [facility] 07-22-2024 Instructions ASHWINI Beck - 07/22/2024 11:00 AM EDT In the future, you do not need to see a provider the same day as your mammogram. You have been doing well and have no current breast concerns. You should continue clinical breast exams with your primary care provider or orthodontic treatment coordinator and can call us in the future if you have any questions or concerns. Please call us to schedule your mammogram when you are ready to do so. You will be due next year on or after July 2025. You can schedule this by calling . Sites for screening mammography include: [facility] [address] [place] [address] [facility], 2nd Floor [address] [place] [address] Outpatient [facility] [place] [address] [place] [address] Outpatient [facility] [place] [address] [place] [address] [facility] [address], [facility], [address] 2nd Floor Radiology [facility] [address] [facility] [address] [place] [address] [place] [address] Outpatient [facility] [place] [address] [place] [address] [facility] [address] [place] [address] [facility] [address] [place] [address] [facility] [place] [address] [place], [place] [address] [facility] [address] [facility] [address] [place], [place] [address] [facility] [address] [facility] [address] [place], [place] [address] [facility] [address] [facility] [address] [place], [place] [address] [facility] [address] [facility] [address] [place] [address] ASHWINI Beck documented in this encounter [facility] 06-17-2024 Note HNO ID: [id number] Author: SHARON CHAMPION, DO Service: ? Author Type: Physician Type: Progress Notes Filed: 06/17/2024 11:22 Note Text: Reason for Visit/Chief Complaint Diamond Lyons is a 59 year old female who presents today for a new evaluation of following complaint: Patient presents with: Left Thumb - Established Patient, Trigger Finger History of Present Illness: PAIN EVALUATION 06/17/2024 1047 Pain Level: 3 Pain Location: Finger Description: Sore Duration Amount of Time: 4 Duration Units: Months Frequency: Intermittent Intervention/Comfort measure: Reposition;Relaxation HPI: Diamond Lyons is a 59 year old female presenting today with L trigger thumb. Pain history is noted as above. Thumb has been bothering her for 4 months. Thumb does not lock up but is very sore with pinching and grasping. No injury. She had a right middle finger trigger release on 04/08/24 and is doing well. She is interested in discussing trigger release for L thumb. Previous Treatments: Ice: No Heat: No Brace: No NSAIDs: No Injections: No Surgeries: No Physical Therapy: No Review of Systems: Patient did not have, and does not currently have, any weight loss, malaise, fever, chills, headache, chest pain, chest pressure, palpitations, cough, shortness of breath, orthopnea, paroxsymal nocturnal dyspnea, nausea, vomiting, diarrhea, constipation, melena, hematochezia, urinary difficulties, prolonged bleeding, easily bruising, heat or cold intolerance, new onset joint pain or swelling, new onset extremity weakness or numbness, new onset auditory or visual disturbances, lightheadedness, dizziness, partial loss of consciousness or full loss of consciousness. Current Outpatient Medications on File Prior to Visit Medication Sig ubidecarenone/vitamin E mixed (COQ10 SG 100 ORAL) Take by mouth. CALCIUM ORAL Take 1,200 mg by mouth. fluticasone propionate (FLOVENT DISKUS INHALATION) Inhale as instructed. nitrofurantoin monohydrate and macrocrystal (MACROBID) 100 mg capsule TAKE 1 CAPSULE TWICE A DAY calcium carbonate (CALTRATE 600) 600 mg (1,500 mg) tab Take 600 mg by mouth once daily. pravastatin (PRAVACHOL) 20 mg ORAL tablet Take 40 mg by mouth daily at bedtime. No current facility-administered medications on file prior to visit. ALLERGIES Allergen Reactions Codeine Shortness of Breath Contrast Dye Hives Penicillins Shortness of Breath Sulfa (Sulfonamide * Shortness of Breath Teramycin [Oxytetra* Shortness of Breath Physical Exam: Vitals: There were no vitals taken for this visit. Psych: Pleasant, good affect and mood General Appearance: Well appearing, alert, in no acute distress, well-hydrated, well nourished.. Skin: Skin color, texture, turgor normal, no suspicious rashes or lesions. Peripheral Pulses: Normal. Neurologic: Gait normal. Reflexes normal and symmetric. Sensation grossly intact.. Lymph Nodes: No cervical lymphadenopathy, No supraclavicular lymphadenopathy, No axillary lymphadenopathy., and No inguinal lymphadenopathy.. Respiratory: No recent pulmonary infection, hemoptysis, chronic cough, or shortness of breath at rest Rheumatologic: Joint deformities: left thumb a1 olvin Right Hand Exam Right hand exam is normal. Tenderness The patient is experiencing no tenderness. Range of Motion The patient has normal right wrist ROM. Wrist Extension: normal Flexion: normal Pronation: normal Supination: normal Muscle Strength The patient has normal right wrist strength. Tests Phalen?s Sign: negative Tinel's sign (median nerve): negative Jericho's test: negative Other Erythema: absent Sensation: normal Pulse: present Comments: B/l med/uln/rad/ax nerves intact Left Hand Exam Tenderness The patient is experiencing tenderness in the palmar area (thumb). Range of Motion The patient has normal left wrist ROM. Wrist Extension: normal Flexion: normal Pronation: normal Supination: normal Muscle Strength The patient has normal left wrist strength. Tests Phalen?s Sign: negative Tinel's sign (median nerve): negative Jericho's test: negative Other Erythema: absent Sensation: normal Pulse: present Comments: Ttp a1 olvin left thumb Imaging: Last XR Hand/Finger - Impression Only XR HAND GENERAL 3V PA/LAT/OBL RIGHT Exam End: 03/31/2024 10:22 AM (Final result) Impression: IMPRESSION: Questionable 4th middle phalanx fracture. Please correlate clinically. Mild osteoarthrosis Adjunct Teacher: MAY Transcribe Date/Time: Apr 01 2024 10:12P Dictated by : MARKUS LEON MD... Assessment and Plan: Impression: Encounter Diagnosis ICD-10-CM 1. Trigger finger of left thumb M65.312 Plan: Risks and benefits vs alternatives to treatment were discussed with patient. Risks including but not limited to blood loss, blood clot, infection, neurovascular injury, failure of procedure, (more content not included)... [facility] 06-17-2024 History of Present illness Narrative Reason for Visit/Chief Complaint Diamond Lyons is a 59 year old female who presents today for a new evaluation of following complaint: Patient presents with: Left Thumb - Established Patient, Trigger Finger History of Present Illness: PAIN EVALUATION 06/17/2024 1047 Pain Level: 3 Pain Location: Finger Description: Sore Duration Amount of Time: 4 Duration Units: Months Frequency: Intermittent Intervention/Comfort measure: Reposition;Relaxation HPI: Diamond Lyons is a 59 year old female presenting today with L trigger thumb. Pain history is noted as above. Thumb has been bothering her for 4 months. Thumb does not lock up but is very sore with pinching and grasping. No injury. She had a right middle finger trigger release on 04/08/24 and is doing well. She is interested in discussing trigger release for L thumb. Previous Treatments: Ice: No Heat: No Brace: No NSAIDs: No Injections: No Surgeries: No Physical Therapy: No Review of Systems: Patient did not have, and does not currently have, any weight loss, malaise, fever, chills, headache, chest pain, chest pressure, palpitations, cough, shortness of breath, orthopnea, paroxsymal nocturnal dyspnea, nausea, vomiting, diarrhea, constipation, melena, hematochezia, urinary difficulties, prolonged bleeding, easily bruising, heat or cold intolerance, new onset joint pain or swelling, new onset extremity weakness or numbness, new onset auditory or visual disturbances, lightheadedness, dizziness, partial loss of consciousness or full loss of consciousness. Current Outpatient Medications on File Prior to Visit Medication Sig ubidecarenone/vitamin E mixed (COQ10 SG 100 ORAL) Take by mouth. CALCIUM ORAL Take 1,200 mg by mouth. fluticasone propionate (FLOVENT DISKUS INHALATION) Inhale as instructed. nitrofurantoin monohydrate and macrocrystal (MACROBID) 100 mg capsule TAKE 1 CAPSULE TWICE A DAY calcium carbonate (CALTRATE 600) 600 mg (1,500 mg) tab Take 600 mg by mouth once daily. pravastatin (PRAVACHOL) 20 mg ORAL tablet Take 40 mg by mouth daily at bedtime. No current facility-administered medications on file prior to visit. ALLERGIES Allergen Reactions Codeine Shortness of Breath Contrast Dye Hives Penicillins Shortness of Breath Sulfa (Sulfonamide * Shortness of Breath Teramycin [Oxytetra* Shortness of Breath Physical Exam: Vitals: There were no vitals taken for this visit. Psych: Pleasant, good affect and mood General Appearance: Well appearing, alert, in no acute distress, well-hydrated, well nourished.. Skin: Skin color, texture, turgor normal, no suspicious rashes or lesions. Peripheral Pulses: Normal. Neurologic: Gait normal. Reflexes normal and symmetric. Sensation grossly intact.. Lymph Nodes: No cervical lymphadenopathy, No supraclavicular lymphadenopathy, No axillary lymphadenopathy., and No inguinal lymphadenopathy.. Respiratory: No recent pulmonary infection, hemoptysis, chronic cough, or shortness of breath at rest Rheumatologic: Joint deformities: left thumb a1 olvin Right Hand Exam Right hand exam is normal. Tenderness The patient is experiencing no tenderness. Range of Motion The patient has normal right wrist ROM. Wrist Extension: normal Flexion: normal Pronation: normal Supination: normal Muscle Strength The patient has normal right wrist strength. Tests Phalen s Sign: negative Tinel's sign (median nerve): negative Jericho's test: negative Other Erythema: absent Sensation: normal Pulse: present Comments: B/l med/uln/rad/ax nerves intact Left Hand Exam Tenderness The patient is experiencing tenderness in the palmar area (thumb). Range of Motion The patient has normal left wrist ROM. Wrist Extension: normal Flexion: normal Pronation: normal Supination: normal Muscle Strength The patient has normal left wrist strength. Tests Phalen s Sign: negative Tinel's sign (median nerve): negative Jericho's test: negative Other Erythema: absent Sensation: normal Pulse: present Comments: Ttp a1 olvin left thumb Imaging: Last XR Hand/Finger - Impression Only XR HAND GENERAL 3V PA/LAT/OBL RIGHT Exam End: 03/31/2024 10:22 AM (Final result) Impression: IMPRESSION: Questionable 4th middle phalanx fracture. Please correlate clinically. Mild osteoarthrosis Adjunct Teacher: MAY Transcribe Date/Time: Apr 01 2024 10:12P Dictated by : MARKUS LEON MD... Assessment and Plan: Impression: Encounter Diagnosis ICD-10-CM 1. Trigger finger of left thumb M65.312 Plan: Risks and benefits vs alternatives to treatment were discussed with patient. Risks including but not limited to blood loss, blood clot, infection, neurovascular injury, failure of procedure, need for revision operation, loss of life and loss of limb. Patient aware of risks and benefits and agrees to proceed with written consent for surgical intervention. Left thumb a1 olvin release Today, in detail, through a thorough evaluation, we discussed possible etiologies of pain and our plans for further diagnostic and therapeutic interventions. We discussed strategies for decreasing pain and improving strength, stability and motion. Patient's questions were answered in detailed. Patient verbalizes understanding and agrees with the treatment plan as discussed. Sharon Champion D.O. M.P.H. documented in this encounter [facility] 06-04-2024 History of Present illness Narrative Images from the original note were not included. Head and Neck [place] HEARING AID EVALUATION Name: Diamond Lyons CC#: [id number] Date of Service: 06/04/2024 Date of : 1965 Age: [age] year old HISTORY Diamond Lyons was seen today for a hearing needs assessment. She was accompanied by her and son. Medical clearance was provided by Catia Barr PA-C. Unaided audiometric testing was completed at the [facility] on 03/05/2024 with the following results: QUESTIONNAIRE RESULTS 1. Top listening situations they want to improve: a. TV has been turned up, has to use speaker phone to have conversations b. Her is concerned that she is not aware of sounds around her. c. She is interested in knowing the likelihood of dementia with hearing loss Note: patient reported that her research on hearing aids suggested [place] made devices are better than other manufacturers. 2. Most important consideration regarding hearing aids was: Improved ability to hear and understand conversations. and Improved ability to understand conversations in noisy situations. 3. Indicated they were willing to pay for premium (level 4)device/s to meet their hearing needs. 4. Patient is interested in phone connectivity: No. 5. Patient is interested in virtual follow-up appointments: No. DEMONSTRATION OF HEARING AID TECHNOLOGY AND DISCUSSION Clinic-demo Phonak Audeo L90/Oticon Intent 1 devices with length 1xM/1x85 receivers and medium vented/8mm double martin domes were programmed to the patient's most recent hearing test. Devices were set to 100% target gain using proprietary fitting formula and fit to patient for an in-office demo of current hearing aid technology. Visual inspection revealed good fit and retention of devices and any pain or discomfort was denied. When the devices were turned on, Diamond Lyons noted sounds and conversation were easier to hear and were clearer with Phonak devices. Performance in background noise was assessed using the QuickSIN with demo hearing aid technology (binaurally). Two lists of six sentences with five mccormack words per sentence were presented in four-talker babble noise in each condition (i.e., aided and unaided. An averaged SNR Loss was calculated for each condition, which allows for comparison to an individual with normal hearing. QuickSIN presented at 70 spring coverer Unaided 3 dB SNR loss indicating Normal/near normal (0-3 dB) degree of SNR loss Oticon 5.5 dB SNR loss indicating Mild (3-7 dB) degree of SNR loss Phonak 4 dB SNR loss indicating Mild (3-7 dB) degree of SNR loss Based on a review of the COAT, [id number] testing with demonstration of devices, and a discussion about the various amplification options with the patient, including the style of hearing aid, the level of technology, and the use of binaural versus monaural devices, it was agreed that the patient would consider the options and return at a later date if the decision is made to pursue hearing aids.. It is also understood that maximum benefit will be achieved from the hearing aid(s) with frequent use and proper fitting and programming. DEVICES TO BE ORDERED Should patient opt to proceed with hearing aids she preferred the following: Device: Phonak Audeo I90 Color: P1 Galvanizer: Length 1, M power Dome: medium vented FINANCIAL COMPONENT Insurance benefit was verified and found that they do not have insurance coverage. It is understood that full payment will be required at the fitting appointment. NOTE: Payment at the time of the Hearing Aid Fitting includes the cost of the device, the fitting appointment as well as all follow-up appointments related to the hearing aids for ONE YEAR from the fitting date. All other appointments - non hearing aid related such as audiometric testing, ENT appointments, etc are NOT covered under the this payment. All future appointments past the ONE YEAR from fitting date will be a [id number]. If there is an insurance benefit, the cost of the devices along with the fitting fee will be submitted to insurance. If it has been determined that there is a limit to the insurance coverage, patient will be financially responsible at the time of the fitting for the balance over the insurance benefit limit. Patient was quoted $5900 for devices due at time of fitting and expressed understanding. Patient was taken to the front end application developer to pay today's appointment fee of $100. MANAGEMENT PLAN / RECOMMENDATIONS: * Contact the provider when the decision is made to pursue amplification. * Patient was given an informational brochure about the Phonak Audeo L/Oticon Intent hearing aids. If/when patient contacts the office regarding purchase of hearing aids, she should be scheduled for the following: Hearing Aid fitting 2-3 weeks after the call Hearing Aid Check 2-3 weeks after the fitting. Jenny Regalado CCC-A Clinical and Senior Hearing Implant Drivematic Machine Operator documented in this encounter [facility] 06-04-2024 Note HNO ID: [id number] Author: MICHELINE OJEDA AUD Service: ? Author Type: Drivematic Machine Operator Type: Progress Notes Filed: 06/04/2024 12:54 Note Text: Head and Neck [place] HEARING AID EVALUATION Name: Diamond Lyons [facility]#: [id number] Date of Service: 06/04/2024 Date of : 1965 Age: [age] year old HISTORY Diamond Lyons was seen today for a hearing needs assessment. She was accompanied by her and son. Medical clearance was provided by Catia Barr PA-C. Unaided audiometric testing was completed at the [facility] on 03/05/2024 with the following results: QUESTIONNAIRE RESULTS 1. Top listening situations they want to improve: a. TV has been turned up, has to use speaker phone to have conversations b. Her is concerned that she is not aware of sounds around her. c. She is interested in knowing the likelihood of dementia with hearing loss Note: patient reported that her research on hearing aids suggested [place] made devices are better than other manufacturers. 2. Most important consideration regarding hearing aids was: Improved ability to hear and understand conversations. and Improved ability to understand conversations in noisy situations. 3. Indicated they were willing to pay for premium (level 4)device/s to meet their hearing needs. 4. Patient is interested in phone connectivity: No. 5. Patient is interested in virtual follow-up appointments: No. DEMONSTRATION OF HEARING AID TECHNOLOGY AND DISCUSSION Clinic-demo Phonak Mobi Techeo L90/Oticon Intent 1 devices with length 1xM/1x85 receivers and medium vented/8mm double martin domes were programmed to the patient's most recent hearing test. Devices were set to 100% target gain using proprietary fitting formula and fit to patient for an in-office demo of current hearing aid technology. Visual inspection revealed good fit and retention of devices and any pain or discomfort was denied. When the devices were turned on, Diamond Lyons noted sounds and conversation were easier to hear and were clearer with Phonak devices. Performance in background noise was assessed using the QuickSIN with demo hearing aid technology (binaurally). Two lists of six sentences with five mccormack words per sentence were presented in four-talker babble noise in each condition (i.e., aided and unaided. An averaged SNR Loss was calculated for each condition, which allows for comparison to an individual with normal hearing. QuickSIN presented at 70 spring coverer Unaided 3 dB SNR loss indicating Normal/near normal (0-3 dB) degree of SNR loss Oticon 5.5 dB SNR loss indicating Mild (3-7 dB) degree of SNR loss Phonak 4 dB SNR loss indicating Mild (3-7 dB) degree of SNR loss Based on a review of the COAT, [id number] testing with demonstration of devices, and a discussion about the various amplification options with the patient, including the style of hearing aid, the level of technology, and the use of binaural versus monaural devices, it was agreed that the patient would consider the options and return at a later date if the decision is made to pursue hearing aids.. It is also understood that maximum benefit will be achieved from the hearing aid(s) with frequent use and proper fitting and programming. DEVICES TO BE ORDERED Should patient opt to proceed with hearing aids she preferred the following: Device: Phonak Audeo I90 Color: P1 Galvanizer: Length 1, M power Dome: medium vented FINANCIAL COMPONENT Insurance benefit was verified and found that they do not have insurance coverage. It is understood that full payment will be required at the fitting appointment. NOTE: Payment at the time of the Hearing Aid Fitting includes the cost of the device, the fitting appointment as well as all follow-up appointments related to the hearing aids for ONE YEAR from the fitting date. All other appointments - non hearing aid related such as audiometric testing, ENT appointments, etc are NOT covered under the this payment. All future appointments past the ONE YEAR from fitting date will be a [id number]. If there is an insurance benefit, the cost of the devices along with the fitting fee will be submitted to insurance. If it has been determined that there is a limit to the insurance coverage, patient will be financially responsible at the time of the fitting for the balance over the insurance benefit limit. Patient was quoted $5900 for devices due at time of fitting and expressed understanding. Patient was taken to the front end application developer to pay today's appointment fee of $100. MANAGEMENT PLAN / RECOMMENDATIONS: * Contact the provider when the decision is made to pursue amplification. * Patient was given an informational brochure about the Phonak Audeo L/Oticon Intent hearing aids. If/when patient contacts the office regarding purchase of hearing aids, she should be scheduled for the following: Hearing Aid fitting 2-3 weeks after the (more content not included)... [facility] 04-22-2024 Note HNO ID: [id number] Author: SHARON CHAMPION, DO Service: ? Author Type: Physician Type: Progress Notes Filed: 04/24/2024 20:32 Note Text: Follow Up Visit Chief Complaint Diamond Lyons is a 59 year old female who presents today for follow up office visit. Patient presents with: Right Hand - Established Patient, Post Op History of Present Illness PAIN EVALUATION No data found in the last 1 encounters. HPI: Diamond Lyons is a 59 year old female for a follow up visit 2 weeks post op right middle trigger finger release. Patient denies any pain. She removed her own sutures. Pain history is noted as above. No issues, impiroved and doing great. Is there any overall improvement in your condition? Yes, Any new injury, since being seen last: No REVIEW OF SYMPTOMS: Patient did not have, and does not currently have, any weight loss, malaise, fever, chills, headache, chest pain, chest pressure, palpitations, cough, shortness of breath, orthopnea, paroxsymal nocturnal dyspnea, nausea, vomiting, diarrhea, constipation, melena, hematochezia, urinary difficulties, prolonged bleeding, easily bruising, heat or cold intolerance, new onset joint pain or swelling, new onset extremity weakness or numbness, new onset auditory or visual disturbances, lightheadedness, dizziness, partial loss of consciousness or full loss of consciousness. Current Outpatient Medications Medication Sig ubidecarenone/vitamin E mixed (COQ10 SG 100 ORAL) Take by mouth. fluticasone propionate (FLOVENT DISKUS INHALATION) Inhale as instructed. nitrofurantoin monohydrate and macrocrystal (MACROBID) 100 mg capsule TAKE 1 CAPSULE TWICE A DAY calcium carbonate (CALTRATE 600) 600 mg (1,500 mg) tab Take 600 mg by mouth once daily. pravastatin (PRAVACHOL) 20 mg ORAL tablet Take 40 mg by mouth daily at bedtime. CALCIUM ORAL Take 1,200 mg by mouth. No current facility-administered medications for this visit. Physical Exam Vitals: There were no vitals taken for this visit. Psych: Pleasant, good affect and mood General Appearance: Well appearing, alert, in no acute distress, well-hydrated, well nourished.. Skin: Skin color, texture, turgor normal, no suspicious rashes or lesions. Peripheral Pulses: Normal. Neurologic: Gait normal. Reflexes normal and symmetric. Sensation grossly intact.. Lymph Nodes: No cervical lymphadenopathy, No supraclavicular lymphadenopathy, No axillary lymphadenopathy., and No inguinal lymphadenopathy.. Respiratory: No recent pulmonary infection, hemoptysis, chronic cough, or shortness of breath at rest Rheumatologic: Joint deformities: right middle finger Right Hand Exam Right hand exam is normal. Tenderness The patient is experiencing no tenderness. Range of Motion The patient has normal right wrist ROM. Wrist Extension: normal Flexion: normal Pronation: normal Supination: normal Muscle Strength The patient has normal right wrist strength. Tests Phalen?s Sign: negative Tinel's sign (median nerve): negative Jericho's test: negative Other Erythema: absent Sensation: normal Pulse: present Comments: B/l med/uln/rad/ax nerves intact Left Hand Exam Left hand exam is normal. Tenderness The patient is experiencing no tenderness. Range of Motion The patient has normal left wrist ROM. Wrist Extension: normal Flexion: normal Pronation: normal Supination: normal Muscle Strength The patient has normal left wrist strength. Tests Phalen?s Sign: negative Tinel's sign (median nerve): negative Jericho's test: negative Other Erythema: absent Sensation: normal Pulse: present Assessment and Plan Radiographs: no concerns Impression: Encounter Diagnosis ICD-10-CM 1. Trigger middle finger of right hand M65.331 Today, in detail, through a thorough evaluation, we discussed possible etiologies of pain and our plans for further diagnostic and therapeutic interventions. We discussed strategies for decreasing pain and improving strength, stability and motion. Patient's questions were answered in detailed. Patient verbalizes understanding and agrees with the treatment plan as discussed. Postop No issues or concerns, has full range of motion Patient aware and in agreement of plan. All questions answered. Sharon Mott.P.H. [facility] 04-22-2024 History of Present illness Narrative Follow Up Visit Chief Complaint Diamond Lyons is a 59 year old female who presents today for follow up office visit. Patient presents with: Right Hand - Established Patient, Post Op History of Present Illness PAIN EVALUATION No data found in the last 1 encounters. HPI: Diamond Lyons is a 59 year old female for a follow up visit 2 weeks post op right middle trigger finger release. Patient denies any pain. She removed her own sutures. Pain history is noted as above. No issues, impiroved and doing great. Is there any overall improvement in your condition? Yes, Any new injury, since being seen last: No REVIEW OF SYMPTOMS: Patient did not have, and does not currently have, any weight loss, malaise, fever, chills, headache, chest pain, chest pressure, palpitations, cough, shortness of breath, orthopnea, paroxsymal nocturnal dyspnea, nausea, vomiting, diarrhea, constipation, melena, hematochezia, urinary difficulties, prolonged bleeding, easily bruising, heat or cold intolerance, new onset joint pain or swelling, new onset extremity weakness or numbness, new onset auditory or visual disturbances, lightheadedness, dizziness, partial loss of consciousness or full loss of consciousness. Current Outpatient Medications Medication Sig ubidecarenone/vitamin E mixed (COQ10 SG 100 ORAL) Take by mouth. fluticasone propionate (FLOVENT DISKUS INHALATION) Inhale as instructed. nitrofurantoin monohydrate and macrocrystal (MACROBID) 100 mg capsule TAKE 1 CAPSULE TWICE A DAY calcium carbonate (CALTRATE 600) 600 mg (1,500 mg) tab Take 600 mg by mouth once daily. pravastatin (PRAVACHOL) 20 mg ORAL tablet Take 40 mg by mouth daily at bedtime. CALCIUM ORAL Take 1,200 mg by mouth. No current facility-administered medications for this visit. Physical Exam Vitals: There were no vitals taken for this visit. Psych: Pleasant, good affect and mood General Appearance: Well appearing, alert, in no acute distress, well-hydrated, well nourished.. Skin: Skin color, texture, turgor normal, no suspicious rashes or lesions. Peripheral Pulses: Normal. Neurologic: Gait normal. Reflexes normal and symmetric. Sensation grossly intact.. Lymph Nodes: No cervical lymphadenopathy, No supraclavicular lymphadenopathy, No axillary lymphadenopathy., and No inguinal lymphadenopathy.. Respiratory: No recent pulmonary infection, hemoptysis, chronic cough, or shortness of breath at rest Rheumatologic: Joint deformities: right middle finger Right Hand Exam Right hand exam is normal. Tenderness The patient is experiencing no tenderness. Range of Motion The patient has normal right wrist ROM. Wrist Extension: normal Flexion: normal Pronation: normal Supination: normal Muscle Strength The patient has normal right wrist strength. Tests Phalen s Sign: negative Tinel's sign (median nerve): negative Jericho's test: negative Other Erythema: absent Sensation: normal Pulse: present Comments: B/l med/uln/rad/ax nerves intact Left Hand Exam Left hand exam is normal. Tenderness The patient is experiencing no tenderness. Range of Motion The patient has normal left wrist ROM. Wrist Extension: normal Flexion: normal Pronation: normal Supination: normal Muscle Strength The patient has normal left wrist strength. Tests Phalen s Sign: negative Tinel's sign (median nerve): negative Jericho's test: negative Other Erythema: absent Sensation: normal Pulse: present Assessment and Plan Radiographs: no concerns Impression: Encounter Diagnosis ICD-10-CM 1. Trigger middle finger of right hand M65.331 Today, in detail, through a thorough evaluation, we discussed possible etiologies of pain and our plans for further diagnostic and therapeutic interventions. We discussed strategies for decreasing pain and improving strength, stability and motion. Patient's questions were answered in detailed. Patient verbalizes understanding and agrees with the treatment plan as discussed. Postop No issues or concerns, has full range of motion Patient aware and in agreement of plan. All questions answered. Sharon Champion D.O. M.P.H. documented in this encounter [facility] 04-07-2024 Instructions Unique Winn APRN.MISTY - 04/07/2024 3:11 PM EDT PATIENT PREOPERATIVE INSTRUCTIONS Sharon Champion,* has scheduled you for your procedure at this surgery center: [facility]: [phone] -- [address] [address]. Please read below carefully for your personalized instructions. Dietary Restrictions: - No solid food after midnight. - You may have 12 ounces of clear liquids (water, clear juices such as apple juice or gatorade, carbonated beverages, clear tea, black coffee, jello) until 2 hours before scheduled arrival at facility. No red/purple coloring and no creamer/sugar Medications: Unless instructed differently below, stay on all of your medications until your surgery. If you start any new medications after today's visit, please contact your surgeon. Pre-Surgery Med Instructions Medication Instructions ubidecarenone/vitamin E mixed (COQ10 SG 100 ORAL) Stop 7 days before surgery CALCIUM ORAL Stop 7 days before surgery fluticasone propionate (FLOVENT DISKUS INHALATION) Take the day of surgery with a small sip of water nitrofurantoin monohydrate and macrocrystal (MACROBID) 100 mg capsule Take the day of surgery with a small sip of water calcium carbonate (CALTRATE 600) 600 mg (1,500 mg) tab Stop 7 days before surgery pravastatin (PRAVACHOL) 20 mg ORAL tablet Take the day of surgery with a small sip of water If you start any new medications after today's visit, please contact the surgeon's office. Blood Thinning Medications: - Stop NSAIDS (Ibuprofen, Advil, Aleve, Motrin, Celebrex, Mobic, etc.) 7 days before surgery, as directed by your surgeon. - Stop Aspirin 7 days before surgery, as directed by your surgeon. - Stop Vitamin E, ALL multi-vitamins, herbals and dietary supplements 7 days before surgery. - You may take Tylenol (Acetaminophen) or any of your pain medications that do not contain aspirin or NSAIDS as needed. Important Reminders: - Candy, mints, and tobacco products are NOT permitted the morning of surgery. - Hearing aids, dentures and glasses may be worn the morning of surgery. - NO jewelry, body piercings, makeup, hairpins or contacts are to be worn the day of surgery. If you develop symptoms such as a fever, cold, or flu, or have other changes to your health within TWO DAYS of scheduled surgery or the morning of surgery, please contact the surgery center above. Personal Belongings: -Please have photo ID and insurance cards. -If you do not have a copy of advance directives on file with us, please bring a copy with you on the day of surgery. - Leave ALL valuables and money at home or with family members. For Outpatient Procedures: - YOU MUST HAVE A RESPONSIBLE ILLUSTRATOR SET TAKE YOU HOME. A LIVESTOCK NUTRITION TERRITORY MANAGER OR MEDICAL STAFF DIRECTOR CANNOT BE MADE A RESPONSIBLE ILLUSTRATOR SET. - We recommend that a responsible person stays with you overnight to take care of you. - You cannot stay in a hotel alone after outpatient surgery. You will not be permitted to have your surgery, if you do not have someone to take care of you. Arrival Time for Surgery: - The Surgery Center or hospital where you are having surgery will call the afternoon before surgery (or Friday for Friday surgery) with a scheduled arrival time. - If you have not heard by 4 pm, please contact the surgery center above. Please be aware that emergency situations arise, which may delay or change your surgical time. If this happens, we will notify you as soon as possible and regret any inconvenience. If you already have an Advance Directive, please fax a copy to [phone] or email to for it to be added to your chart. If you do not have an Advance Directive, you can find the appropriate form and more information at [email or web address]. We recommend that you complete the Advance Directive form found on the website and bring it with you the day of your surgery. It can be witnessed and scanned into your chart that day. Unique Winn APRN.CNP documented in this encounter [facility] 04-07-2024 History and physical note HISTORY AND PHYSICAL EXAMINATION SERVICE DATE: 04/07/2024 SERVICE TIME: 3:28 PM PRIMARY CARE PHYSICIAN: [facility] Assessment Patient has the following medical conditions which may affect ana-operative course: Recurrent UTI Assessment: daily Macrobid, use to follow with urology, now PCP manages, denies any current UTI symptoms Mixed hyperlipidemia Assessment: c/w statin Class 2 obesity due to excess calories with body mass index (BMI) of 36.0 to 36.9 in adult Assessment: Body mass index is 36.13 kg/m . Asthma Assessment: controlled with rx as needed Lara Activity Status Index: METS: Climb a flight of stairs or walk up a hill (5.50 METs) DASI Score: 5.5 Patient denies any chest pain or undue shortness of breath with the above physical activity. Clinical Frailty Scale: 3. Well, with treated comorbid disease STOP-Bang Score: Snores loudly BMI greater than 35 kg/m^2 Patient over 50 years old Has a large neck Denies feeling tired, fatigued, or sleepy during the daytime Has not been observed to stop breathing or choking/gasping during sleep Denies having high blood pressure Non-male patient STOP-Bang Score: 4 [id number] Score: Age: <65 Sex: female CHF history: No Hypertension history: No Stroke/TIA/thromboembolism history: No Vascular disease history: No Diabetes history: No [id number] Score: 1 ARISCAT Score: Age: 51-80 Preoperative SpO2: >=96% Respiratory infection in the last month: No Preoperative anemia: Yes Surgical incision: peripheral Duration of surgery: <2 hrs Emergency procedure: No ARISCAT Score: 14 ANESTHESIA FINDINGS: Intubation History: No history of difficult intubation Significant Anesthesia Considerations: none Airway History: No history of difficult airway I - PHYSICAL EVALUATION AIRWAY Patient intubated: No. Tracheostomy tube not present Mallampati: III. TM distance: >3 FB. Neck ROM: full ROM without neurological symptoms. Mouth opening: adequate. Short neck: yes. Thick neck: yes Alford present: no Lip Bite Test: I Microretrognathia/Micronagthia/Re cessed Chin: No DENTAL Dental findings: teeth intact. Additional comments: +crowns/back. II - ANESTHESIA PLAN Anesthetic Plan: other Beta Yun Monitoring Plan Post Procedure Analgesic Plan Informed Consent Anesthetic risks, benefits, alternatives, personnel and consent discussed: yes. Patient / Responsible Libertarian agrees to proceed: yes Patient / Surrogate agrees to blood products: blood products not planned Discussed the possibility of lip / dental damage: yes Prepared for Surgery: optimally prepared for surgery. CONSULTS: Patient does not require consults for optimization at this time Planned Anesthetic: other anesthesia choice The Following Tests/Procedures Have Been Initiated: Orders Placed This Encounter ubidecarenone/vitamin E mixed (COQ10 SG 100 ORAL) Sig: Take by mouth. CALCIUM ORAL Sig: Take 1,200 mg by mouth. fluticasone propionate (FLOVENT DISKUS INHALATION) Sig: Inhale as instructed. REASON FOR VISIT: Diamond Lyons is a 58 year old female who is scheduled for Procedure(s): RELEASE TRIGGER FINGER (Right) at the request of Dr. Sharon Champion for consultation. My final recommendation will be communicated back to the requesting physician by way of shared medical record or letter. Subjective The patient has the following: ACTIVE PROBLEM LIST PAIN ABDOMEN( Epigastric) GASTRITIS ANTRAL( W/O Hemorrhage) HIATAL HERNIA Acute Gastritis Without Mention of Hemorrhage Other Specified Gastritis Microscopic Hematuria Sensorineural Hearing Loss, Bilateral Recurrent Uti Mixed Hyperlipidemia Class 2 Obesity Due to Excess Calories With Body Mass Index (Bmi) of 36.0 to 36.9 in Adult Asthma COVID-19 Immunization Status Overdue - Covid-19 Vaccine ( season) Never done No completion, postpone, frequency change, or communication history exists for this topic. CHIEF COMPLAINT: Pre-op exam HPI: Diamond Lyons is a 58 year old seen for PAC due to scheduled above surgery because middle trigger finger right hand. 03/31/2024, Dr. Sharon Champion Patient presents with: Right Hand - New, Pain History of Present Illness: PAIN EVALUATION 03/31/2024 1130 Pain Level: 1 increases with use Pain Location: Finger Description: - catching Duration Amount of Time: 3 Duration Units: Months Frequency: Intermittent HPI: Diamond Lyons is a 58 year old female presenting today with right middle finger pain. Patient states that for the past 3 months she has been noticing her finger has been getting stuck. She does have a history of multiple trigger finger releases. Patient would like to discuss surgical options. Pain history is noted as above. Previous Treatments: Ice: No Heat: No Brace: No NSAIDs: No Injections: No Surgeries: multiple previous trigger finger release on different fingers Physical Therapy: No REVIEW OF SYSTEMS: General: No weight loss, malaise or fevers. 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 No neurological symptoms or problems. Respiratory: Positive for: asthma (rx as needed). Negative for: COPD, pneumonia within 6 weeks, tobacco use, URI < 2 weeks and obstructive sleep apnea. Cardiovascular: Positive for: hyperlipidemia (on rx) Negative for: anticoagulation therapy, arrhythmia, atrial fibrillation, CAD, chest pain, CHF, congenital heart defect, DVT/PE, hypertension, recent NH, murmur/valvular heart disease, PVD, open heart surgery and valve surgery. GI: No history of GI symptoms or problems. No history of esophageal varices, recent ascites, or ETOH greater than 2 drinks per day. : Positive for: urinary tract infection (recurrent, on rx). Negative for: urinary incontinence, nephrolithiasis and renal failure. 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 Endocrine: No history of diabetes. Has not taken steroids within the past 30 days. No history of endocrinological symptoms or problems. Hematology: No history of bleeding or clotting disorder. Patient is not taking anti-coagulation or platelet medications. No history of hematological symptoms or problems. Oncology: No history of CA metastasis, chemo within 30 days, or radiotherapy within 90 days. No history of oncological symptoms or problems. Psych: No history of psychiatric symptoms or problems. Musculoskeletal: See HPI. Skin: Negative for lesions, rash and itching. PAST MEDICAL HISTORY Diagnosis Date Abdominal pain, left upper quadrant Diaphragmatic hernia without mention of obstruction or gangrene Other specified gastritis antral Unspecified asthma(493.90) PAST SURGICAL HISTORY Procedure Laterality Date DELIVERY ONLY 1995 , low cervical COLONOSCOPY FLX DX W/COLLJ SPEC WHEN PFRMD 08/04/06 Normal EGD TRANSORAL BIOPSY SINGLE/MULTIPLE 08/04/06 HH and Antral gastritis PAST SURGICAL HISTORY OF TENDON RELEASE BILAT THUMBS VAGINAL HYSTERECTOMY UTERUS 250 GM/< 1997 Hysterectomy, vaginal History reviewed. No pertinent family history. Social History Tobacco Use Smoking status: Never Smokeless tobacco: Never Vaping Use Vaping Use: Never used Substance Use Topics Alcohol use: No Drug use: No Prior to Admission medications as of 04/07/24 1524 Medication Sig Last Dose Taking ubidecarenone/vitamin E mixed (COQ10 SG 100 ORAL) Take by mouth. Taking Yes CALCIUM ORAL Take 1,200 mg by mouth. Taking Yes fluticasone propionate (FLOVENT DISKUS INHALATION) Inhale as instructed. Taking Yes nitrofurantoin monohydrate and macrocrystal (MACROBID) 100 mg capsule TAKE 1 CAPSULE TWICE A DAY Taking Yes calcium carbonate (CALTRATE 600) 600 mg (1,500 mg) tab Take 600 mg by mouth once daily. Taking Yes pravastatin (PRAVACHOL) 20 mg ORAL tablet Take 40 mg by mouth daily at bedtime. Taking Yes No medication comments found. ALLERGIES Allergen Reactions Codeine Shortness of Breath Contrast Dye Hives Penicillins Shortness of Breath Sulfa (Sulfonamide * Shortness of Breath Teramycin [Oxytetra* Shortness of Breath Objective PHYSICAL EXAM: General: alert and oriented (x3), healthy appearance and obese. Pertinent negatives noted - not distressed. Skin: normal color, no rash or lesions. HEENT: EOM intact and pupils equal round. Pertinent negatives noted - no carotid bruit. Cardiovascular: regular rate and rhythm, normal S1 and S2, no rub, murmurs, or gallop. Respiratory: normal breath sounds, no wheezes or crackles. No chest wall deformity or tenderness. Abdomen: soft. Pertinent negatives noted - not tender. Extremities: no deformity, no edema or tenderness, no joint swelling or clubbing. Neurological: normal cognition and motor skills. Gait normal. No weakness or sensory deficit. PAIN ASSESSMENT: VITALS: BP 122/68 Pulse 102 Temp (Src) 97.5 (Temporal) Resp 18 Ht 5' 0 (1.52m) Wt 185 lb (83.9kg) SpO2 96% BMI 36.13 kg/(m^2). Diagnostic tests reviewed for today's visit: Lab Value Units Date High Low HB No results within date range. HCT No results within date range. WBC No results within date range. PLT No results within date range. NA No results within date range. K No results within date range. GLUC No results within date range. BUN No results within date range. CREAT No results within date range. PTSEC No results within date range. INR No results within date range. APTT No results within date range. ALT No results within date range. AST No results within date range. TBILI No results within date range. TSH No results within date range. Lab Value Units Date High Low HCGQT No results within date range. UHCG No results within date range. HCG, BODY* No results within date range. Lab Value Units Date High Low ABORHD No results within date range. ABSCREEN No results within date range. No results found for: HBA1C No results found for this or any previous visit (from the past 8760 hour(s)). No results found for this or any previous visit (from the past 35311 hour(s)). Instructions Given to Patient: Instructions located in the after visit summary. Patient given verbal and written preop instructions and voices comprehension and compliance. 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 PATIENT NAME: Diamond Lyons DATE: April 07, 2024 TIME: 3:09 PM PAGER/CONTACT #: [facility] 04-07-2024 History and physical note HISTORY AND PHYSICAL EXAMINATION SERVICE DATE: 04/07/2024 SERVICE TIME: 3:28 PM PRIMARY CARE PHYSICIAN: [facility] Assessment Patient has the following medical conditions which may affect ana-operative course: Recurrent UTI Assessment: daily Macrobid, use to follow with urology, now PCP manages, denies any current UTI symptoms Mixed hyperlipidemia Assessment: c/w statin Class 2 obesity due to excess calories with body mass index (BMI) of 36.0 to 36.9 in adult Assessment: Body mass index is 36.13 kg/m . Asthma Assessment: controlled with rx as needed Lara Activity Status Index: METS: Climb a flight of stairs or walk up a hill (5.50 METs) DASI Score: 5.5 Patient denies any chest pain or undue shortness of breath with the above physical activity. Clinical Frailty Scale: 3. Well, with treated comorbid disease STOP-Bang Score: Snores loudly BMI greater than 35 kg/m^2 Patient over 50 years old Has a large neck Denies feeling tired, fatigued, or sleepy during the daytime Has not been observed to stop breathing or choking/gasping during sleep Denies having high blood pressure Non-male patient STOP-Bang Score: 4 [id number] Score: Age: <65 Sex: female CHF history: No Hypertension history: No Stroke/TIA/thromboembolism history: No Vascular disease history: No Diabetes history: No [id number] Score: 1 ARISCAT Score: Age: 51-80 Preoperative SpO2: >=96% Respiratory infection in the last month: No Preoperative anemia: Yes Surgical incision: peripheral Duration of surgery: <2 hrs Emergency procedure: No ARISCAT Score: 14 ANESTHESIA FINDINGS: Intubation History: No history of difficult intubation Significant Anesthesia Considerations: none Airway History: No history of difficult airway I - PHYSICAL EVALUATION AIRWAY Patient intubated: No. Tracheostomy tube not present Mallampati: III. TM distance: >3 FB. Neck ROM: full ROM without neurological symptoms. Mouth opening: adequate. Short neck: yes. Thick neck: yes Alford present: no Lip Bite Test: I Microretrognathia/Micronagthia/Re cessed Chin: No DENTAL Dental findings: teeth intact. Additional comments: +crowns/back. II - ANESTHESIA PLAN Anesthetic Plan: other Beta Yun Monitoring Plan Post Procedure Analgesic Plan Informed Consent Anesthetic risks, benefits, alternatives, personnel and consent discussed: yes. Patient / Responsible Libertarian agrees to proceed: yes Patient / Surrogate agrees to blood products: blood products not planned Discussed the possibility of lip / dental damage: yes Prepared for Surgery: optimally prepared for surgery. CONSULTS: Patient does not require consults for optimization at this time Planned Anesthetic: other anesthesia choice The Following Tests/Procedures Have Been Initiated: Orders Placed This Encounter ubidecarenone/vitamin E mixed (COQ10 SG 100 ORAL) Sig: Take by mouth. CALCIUM ORAL Sig: Take 1,200 mg by mouth. fluticasone propionate (FLOVENT DISKUS INHALATION) Sig: Inhale as instructed. REASON FOR VISIT: Diamond Lyons is a 58 year old female who is scheduled for Procedure(s): RELEASE TRIGGER FINGER (Right) at the request of Dr. Sharon Champion for consultation. My final recommendation will be communicated back to the requesting physician by way of shared medical record or letter. Subjective The patient has the following: ACTIVE PROBLEM LIST PAIN ABDOMEN( Epigastric) GASTRITIS ANTRAL( W/O Hemorrhage) HIATAL HERNIA Acute Gastritis Without Mention of Hemorrhage Other Specified Gastritis Microscopic Hematuria Sensorineural Hearing Loss, Bilateral Recurrent Uti Mixed Hyperlipidemia Class 2 Obesity Due to Excess Calories With Body Mass Index (Bmi) of 36.0 to 36.9 in Adult Asthma COVID-19 Immunization Status Overdue - Covid-19 Vaccine ( season) Never done No completion, postpone, frequency change, or communication history exists for this topic. CHIEF COMPLAINT: Pre-op exam HPI: Diamond Lyons is a 58 year old seen for PAC due to scheduled above surgery because middle trigger finger right hand. 03/31/2024, Dr. Sharon Champion Patient presents with: Right Hand - New, Pain History of Present Illness: PAIN EVALUATION 03/31/2024 1130 Pain Level: 1 increases with use Pain Location: Finger Description: - catching Duration Amount of Time: 3 Duration Units: Months Frequency: Intermittent HPI: Diamond Lyons is a 58 year old female presenting today with right middle finger pain. Patient states that for the past 3 months she has been noticing her finger has been getting stuck. She does have a history of multiple trigger finger releases. Patient would like to discuss surgical options. Pain history is noted as above. Previous Treatments: Ice: No Heat: No Brace: No NSAIDs: No Injections: No Surgeries: multiple previous trigger finger release on different fingers Physical Therapy: No REVIEW OF SYSTEMS: General: No weight loss, malaise or fevers. 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 No neurological symptoms or problems. Respiratory: Positive for: asthma (rx as needed). Negative for: COPD, pneumonia within 6 weeks, tobacco use, URI < 2 weeks and obstructive sleep apnea. Cardiovascular: Positive for: hyperlipidemia (on rx) Negative for: anticoagulation therapy, arrhythmia, atrial fibrillation, CAD, chest pain, CHF, congenital heart defect, DVT/PE, hypertension, recent NH, murmur/valvular heart disease, PVD, open heart surgery and valve surgery. GI: No history of GI symptoms or problems. No history of esophageal varices, recent ascites, or ETOH greater than 2 drinks per day. : Positive for: urinary tract infection (recurrent, on rx). Negative for: urinary incontinence, nephrolithiasis and renal failure. 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 Endocrine: No history of diabetes. Has not taken steroids within the past 30 days. No history of endocrinological symptoms or problems. Hematology: No history of bleeding or clotting disorder. Patient is not taking anti-coagulation or platelet medications. No history of hematological symptoms or problems. Oncology: No history of CA metastasis, chemo within 30 days, or radiotherapy within 90 days. No history of oncological symptoms or problems. Psych: No history of psychiatric symptoms or problems. Musculoskeletal: See HPI. Skin: Negative for lesions, rash and itching. PAST MEDICAL HISTORY Diagnosis Date Abdominal pain, left upper quadrant Diaphragmatic hernia without mention of obstruction or gangrene Other specified gastritis antral Unspecified asthma(493.90) PAST SURGICAL HISTORY Procedure Laterality Date DELIVERY ONLY 1995 , low cervical COLONOSCOPY FLX DX W/COLLJ SPEC WHEN PFRMD 08/04/06 Normal EGD TRANSORAL BIOPSY SINGLE/MULTIPLE 08/04/06 HH and Antral gastritis PAST SURGICAL HISTORY OF TENDON RELEASE BILAT THUMBS VAGINAL HYSTERECTOMY UTERUS 250 GM/< 1998 Hysterectomy, vaginal History reviewed. No pertinent family history. Social History Tobacco Use Smoking status: Never Smokeless tobacco: Never Vaping Use Vaping Use: Never used Substance Use Topics Alcohol use: No Drug use: No Prior to Admission medications as of 04/07/24 1524 Medication Sig Last Dose Taking ubidecarenone/vitamin E mixed (COQ10 SG 100 ORAL) Take by mouth. Taking Yes CALCIUM ORAL Take 1,200 mg by mouth. Taking Yes fluticasone propionate (FLOVENT DISKUS INHALATION) Inhale as instructed. Taking Yes nitrofurantoin monohydrate and macrocrystal (MACROBID) 100 mg capsule TAKE 1 CAPSULE TWICE A DAY Taking Yes calcium carbonate (CALTRATE 600) 600 mg (1,500 mg) tab Take 600 mg by mouth once daily. Taking Yes pravastatin (PRAVACHOL) 20 mg ORAL tablet Take 40 mg by mouth daily at bedtime. Taking Yes No medication comments found. ALLERGIES Allergen Reactions Codeine Shortness of Breath Contrast Dye Hives Penicillins Shortness of Breath Sulfa (Sulfonamide * Shortness of Breath Teramycin [Oxytetra* Shortness of Breath Objective PHYSICAL EXAM: General: alert and oriented (x3), healthy appearance and obese. Pertinent negatives noted - not distressed. Skin: normal color, no rash or lesions. HEENT: EOM intact and pupils equal round. Pertinent negatives noted - no carotid bruit. Cardiovascular: regular rate and rhythm, normal S1 and S2, no rub, murmurs, or gallop. Respiratory: normal breath sounds, no wheezes or crackles. No chest wall deformity or tenderness. Abdomen: soft. Pertinent negatives noted - not tender. Extremities: no deformity, no edema or tenderness, no joint swelling or clubbing. Neurological: normal cognition and motor skills. Gait normal. No weakness or sensory deficit. PAIN ASSESSMENT: VITALS: BP 122/68 Pulse 102 Temp (Src) 97.5 (Temporal) Resp 18 Ht 5' 0 (1.52m) Wt 185 lb (83.9kg) SpO2 96% BMI 36.13 kg/(m^2). Diagnostic tests reviewed for today's visit: Lab Value Units Date High Low HB No results within date range. HCT No results within date range. WBC No results within date range. PLT No results within date range. NA No results within date range. K No results within date range. GLUC No results within date range. BUN No results within date range. CREAT No results within date range. PTSEC No results within date range. INR No results within date range. APTT No results within date range. ALT No results within date range. AST No results within date range. TBILI No results within date range. TSH No results within date range. Lab Value Units Date High Low HCGQT No results within date range. UHCG No results within date range. HCG, BODY* No results within date range. Lab Value Units Date High Low ABORHD No results within date range. ABSCREEN No results within date range. No results found for: HBA1C No results found for this or any previous visit (from the past 8760 hour(s)). No results found for this or any previous visit (from the past 47071 hour(s)). Instructions Given to Patient: Instructions located in the after visit summary. Patient given verbal and written preop instructions and voices comprehension and compliance. SIGNATURE: Unique Winn APRN.CNP PATIENT NAME: Diamond Lyons DATE: April 07, 2024 TIME: 3:09 PM PAGER/CONTACT #: documented in this encounter [facility] 03-31-2024 Note HNO ID: [id number] Author: SHARON CHAMPION, DO Service: ? Author Type: Physician Type: Progress Notes Filed: 03/31/2024 11:56 Note Text: Reason for Visit/Chief Complaint Diamond Lyons is a 58 year old female who presents today for a new evaluation of following complaint: Patient presents with: Right Hand - New, Pain History of Present Illness: PAIN EVALUATION 03/31/2024 1130 Pain Level: 1 increases with use Pain Location: Finger Description: -- catching Duration Amount of Time: 3 Duration Units: Months Frequency: Intermittent HPI: Diamond Lyons is a 58 year old female presenting today with right middle finger pain. Patient states that for the past 3 months she has been noticing her finger has been getting stuck. She does have a history of multiple trigger finger releases. Patient would like to discuss surgical options. Pain history is noted as above. Previous Treatments: Ice: No Heat: No Brace: No NSAIDs: No Injections: No Surgeries: multiple previous trigger finger release on different fingers Physical Therapy: No Review of Systems: Patient did not have, and does not currently have, any weight loss, malaise, fever, chills, headache, chest pain, chest pressure, palpitations, cough, shortness of breath, orthopnea, paroxsymal nocturnal dyspnea, nausea, vomiting, diarrhea, constipation, melena, hematochezia, urinary difficulties, prolonged bleeding, easily bruising, heat or cold intolerance, new onset joint pain or swelling, new onset extremity weakness or numbness, new onset auditory or visual disturbances, lightheadedness, dizziness, partial loss of consciousness or full loss of consciousness. Current Outpatient Medications on File Prior to Visit Medication Sig nitrofurantoin monohydrate and macrocrystal (MACROBID) 100 mg capsule TAKE 1 CAPSULE TWICE A DAY calcium carbonate (CALTRATE 600) 600 mg (1,500 mg) tab Take 600 mg by mouth once daily. budesonide-formoterol (SYMBICORT) 80-4.5 mcg/actuation inhaler Inhale 2 Puffs as instructed twice daily. pravastatin (PRAVACHOL) 20 mg ORAL tablet Take 40 mg by mouth daily at bedtime. solifenacin (VESICARE) 5 mg tablet Take 1 tablet by mouth once daily. MYRBETRIQ 50 mg Tb24 Take 50 mg by mouth once daily. No current facility-administered medications on file prior to visit. ALLERGIES Allergen Reactions Codeine Shortness of Breath Contrast Dye Hives Penicillins Shortness of Breath Sulfa (Sulfonamide * Shortness of Breath Teramycin [Oxytetra* Shortness of Breath Physical Exam: Vitals: There were no vitals taken for this visit. Psych: Pleasant, good affect and mood General Appearance: Well appearing, alert, in no acute distress, well-hydrated, well nourished.. Skin: Skin color, texture, turgor normal, no suspicious rashes or lesions. Peripheral Pulses: Normal. Neurologic: Gait normal. Reflexes normal and symmetric. Sensation grossly intact.. Lymph Nodes: No cervical lymphadenopathy, No supraclavicular lymphadenopathy, No axillary lymphadenopathy., and No inguinal lymphadenopathy.. Respiratory: No recent pulmonary infection, hemoptysis, chronic cough, or shortness of breath at rest Rheumatologic: Joint deformities: right middle finger pain Right Hand Exam Right hand exam is normal. Tenderness The patient is experiencing no tenderness. Range of Motion The patient has normal right wrist ROM. Wrist Extension: normal Flexion: normal Pronation: normal Supination: normal Muscle Strength The patient has normal right wrist strength. Tests Phalen?s Sign: negative Tinel's sign (median nerve): negative Jericho's test: negative Other Erythema: absent Sensation: normal Pulse: present Comments: B/l med/uln/rad/ax nerves intact Ttp a1 olvin with locking middle finger right Left Hand Exam Left hand exam is normal. Tenderness The patient is experiencing no tenderness. Range of Motion The patient has normal left wrist ROM. Wrist Extension: normal Flexion: normal Pronation: normal Supination: normal Muscle Strength The patient has normal left wrist strength. Tests Phalen?s Sign: negative Tinel's sign (median nerve): negative Jericho's test: negative Other Erythema: absent Sensation: normal Pulse: present Imaging: Last XR Hand/Finger - Impression Only XR HAND GENERAL 3V PA/LAT/OBL RIGHT Exam End: 03/31/2024 10:22 AM (In process) No acute findings, see chart when rad read Assessment and Plan: Impression: Encounter Diagnosis ICD-10-CM 1. Trigger middle finger of right hand M65.331 Plan: Risks and benefits vs alternatives to treatment were discussed with patient. Risks including but not limited to blood loss, blood clot, infection, neurovascular injury, failure of procedure, need for revision operation, loss of life and loss of limb. Patient aware of risks and benefits and agrees to proceed with written (more content not included)... [facility] 03-31-2024 History of Present illness Narrative Images from the original note were not included. Reason for Visit/Chief Complaint Diamond Lyons is a 58 year old female who presents today for a new evaluation of following complaint: Patient presents with: Right Hand - New, Pain History of Present Illness: PAIN EVALUATION 03/31/2024 1130 Pain Level: 1 increases with use Pain Location: Finger Description: -- catching Duration Amount of Time: 3 Duration Units: Months Frequency: Intermittent HPI: Diamond Lyons is a 58 year old female presenting today with right middle finger pain. Patient states that for the past 3 months she has been noticing her finger has been getting stuck. She does have a history of multiple trigger finger releases. Patient would like to discuss surgical options. Pain history is noted as above. Previous Treatments: Ice: No Heat: No Brace: No NSAIDs: No Injections: No Surgeries: multiple previous trigger finger release on different fingers Physical Therapy: No Review of Systems: Patient did not have, and does not currently have, any weight loss, malaise, fever, chills, headache, chest pain, chest pressure, palpitations, cough, shortness of breath, orthopnea, paroxsymal nocturnal dyspnea, nausea, vomiting, diarrhea, constipation, melena, hematochezia, urinary difficulties, prolonged bleeding, easily bruising, heat or cold intolerance, new onset joint pain or swelling, new onset extremity weakness or numbness, new onset auditory or visual disturbances, lightheadedness, dizziness, partial loss of consciousness or full loss of consciousness. Current Outpatient Medications on File Prior to Visit Medication Sig nitrofurantoin monohydrate and macrocrystal (MACROBID) 100 mg capsule TAKE 1 CAPSULE TWICE A DAY calcium carbonate (CALTRATE 600) 600 mg (1,500 mg) tab Take 600 mg by mouth once daily. budesonide-formoterol (SYMBICORT) 80-4.5 mcg/actuation inhaler Inhale 2 Puffs as instructed twice daily. pravastatin (PRAVACHOL) 20 mg ORAL tablet Take 40 mg by mouth daily at bedtime. solifenacin (VESICARE) 5 mg tablet Take 1 tablet by mouth once daily. MYRBETRIQ 50 mg Tb24 Take 50 mg by mouth once daily. No current facility-administered medications on file prior to visit. ALLERGIES Allergen Reactions Codeine Shortness of Breath Contrast Dye Hives Penicillins Shortness of Breath Sulfa (Sulfonamide * Shortness of Breath Teramycin [Oxytetra* Shortness of Breath Physical Exam: Vitals: There were no vitals taken for this visit. Psych: Pleasant, good affect and mood General Appearance: Well appearing, alert, in no acute distress, well-hydrated, well nourished.. Skin: Skin color, texture, turgor normal, no suspicious rashes or lesions. Peripheral Pulses: Normal. Neurologic: Gait normal. Reflexes normal and symmetric. Sensation grossly intact.. Lymph Nodes: No cervical lymphadenopathy, No supraclavicular lymphadenopathy, No axillary lymphadenopathy., and No inguinal lymphadenopathy.. Respiratory: No recent pulmonary infection, hemoptysis, chronic cough, or shortness of breath at rest Rheumatologic: Joint deformities: right middle finger pain Right Hand Exam Right hand exam is normal. Tenderness The patient is experiencing no tenderness. Range of Motion The patient has normal right wrist ROM. Wrist Extension: normal Flexion: normal Pronation: normal Supination: normal Muscle Strength The patient has normal right wrist strength. Tests Phalen s Sign: negative Tinel's sign (median nerve): negative Jericho's test: negative Other Erythema: absent Sensation: normal Pulse: present Comments: B/l med/uln/rad/ax nerves intact Ttp a1 olvin with locking middle finger right Left Hand Exam Left hand exam is normal. Tenderness The patient is experiencing no tenderness. Range of Motion The patient has normal left wrist ROM. Wrist Extension: normal Flexion: normal Pronation: normal Supination: normal Muscle Strength The patient has normal left wrist strength. Tests Phalen s Sign: negative Tinel's sign (median nerve): negative Jericho's test: negative Other Erythema: absent Sensation: normal Pulse: present Imaging: Last XR Hand/Finger - Impression Only XR HAND GENERAL 3V PA/LAT/OBL RIGHT Exam End: 03/31/2024 10:22 AM (In process) No acute findings, see chart when rad read Assessment and Plan: Impression: Encounter Diagnosis ICD-10-CM 1. Trigger middle finger of right hand M65.331 Plan: Risks and benefits vs alternatives to treatment were discussed with patient. Risks including but not limited to blood loss, blood clot, infection, neurovascular injury, failure of procedure, need for revision operation, loss of life and loss of limb. Patient aware of risks and benefits and agrees to proceed with written consent for surgical intervention. Right middle finger a1 olvin release Today, in detail, through a thorough evaluation, we discussed possible etiologies of pain and our plans for further diagnostic and therapeutic interventions. We discussed strategies for decreasing pain and improving strength, stability and motion. Patient's questions were answered in detailed. Patient verbalizes understanding and agrees with the treatment plan as discussed. Sharon Champion D.O. M.P.H. documented in this encounter [facility] 03-31-2024 History of Present illness Narrative Radiology Service Progress Note PATIENT NAME: Diamond Lyons DATE OF SERVICE: March 31, 2024 TIME: 10:22 AM PATIENT IDENTITY VERIFICATION COMPLETED USING TWO (2) IDENTIFIERS: Name and Date of confirmed by patient verbally. FALL SCREENING: Has the patient had 2 falls in the last year or 1 fall with injury or currently using an Ambulatory Assistive Device (Walker, Cane, Wheelchair, Crutches, etc.)? No PATIENT GENDER DATA: Female. status: : No status: NO. PATIENT RELEVANT IMPLANT DATA REVIEWED: Not Applicable PATIENT PRESENTS WITH AN IMPLANTABLE OR ATTACHED PRIVATE TUTORS AND TEACHERS: No RADIOLOGY DEPARTMENT: General X-ray: Exam(s) Completed: Upper Extremity X-Ray(s): Hand, right PERIPHERAL IV DATA: Not applicable SIGNED BY: Darrin Callahan March 31, 2024 10:22 AM documented in this encounter [facility] 03-31-2024 Note HNO ID: [id number] Author: TIFFANY REBOLLAR Tech Service: ? Author Type: Spiral Runner Type: Progress Notes Filed: 03/31/2024 10:22 Note Text: Radiology Service Progress Note PATIENT NAME: Diamond Lyons DATE OF SERVICE: March 31, 2024 TIME: 10:22 AM PATIENT IDENTITY VERIFICATION COMPLETED USING TWO (2) IDENTIFIERS: Name and Date of confirmed by patient verbally. FALL SCREENING: Has the patient had 2 falls in the last year or 1 fall with injury or currently using an Ambulatory Assistive Device (Walker, Cane, Wheelchair, Crutches, etc.)? No PATIENT GENDER DATA: Female. status: : No status: NO. PATIENT RELEVANT IMPLANT DATA REVIEWED: Not Applicable PATIENT PRESENTS WITH AN IMPLANTABLE OR ATTACHED PRIVATE TUTORS AND TEACHERS: No RADIOLOGY DEPARTMENT: General X-ray: Exam(s) Completed: Upper Extremity X-Ray(s): Hand, right PERIPHERAL IV DATA: Not applicable SIGNED BY: Darrin Callahan March 31, 2024 10:22 AM [facility] 03-05-2024 History of Present illness Narrative [facility] [place] AUDIOLOGIC EVALUATION REPORT Name: Diamond Lyons F#: [id number] Date of Service: 03/05/2024 Date of : 1965 Age: [age] year old Referred by: GARRET Shine Referred for: Evaluation of the cause of disorder of hearing, tinnitus, or balance. Referral documented: In an order in Epic Patient's major complaints: Reduced hearing in both ears, History of noise exposure from either occupational or recreational sources Diamond Lyons was seen for an initial audiologic evaluation. See Procedures Tab for Audiogram. 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 Refer to the Auditory Test Record for complete audiometric results. The patient was counseled about the test findings and appropriate audiologic recommendations were made. OTOSCOPY RIGHT EAR: Otoscopic inspection revealed ear canal was clear with an identifiable cone of light. LEFT EAR: Otoscopic inspection revealed ear canal was clear with an identifiable cone of light. TYMPANOMETRY Description of procedure: This test is an objective evaluation of middle ear function. CPT code: 62769 RIGHT EAR: Normal ME pressure with normal TM compliance (mobility). LEFT EAR: Normal ME pressure with normal TM compliance (mobility). ACOUSTIC REFLEXES Description of procedure: This test is an objective measure of auditory and facial nerve pathways. CPT code: 70586, 36417 RIGHT EAR PROBE EAR: (ipsi right stimulus ear; contralateral left stimulus ear): Acoustic Reflex Pattern Did not test Acoustic Reflex Decay (left stimulus ear): Did not test. LEFT EAR PROBE EAR: (ipsi left stimulus ear; contralateral right stimulus ear): Acoustic Reflex Pattern Did not test Acoustic Reflex Decay (right stimulus ear):Did not test. PURE TONE AUDIOMETRY AND SPEECH TESTING Description of procedure: This test is an objective evaluation hearing sensitivity via air and bone conduction and speech recognition testing. CPT code:03398 RIGHT EAR: Hearing Sensitivity: Mild sloping to moderate through 2000 Hz rising to normal at 6000 Hz then sloping to moderate at 8000 Hz: Sensorineural hearing loss Word Recognition Score: Excellent (100%). WRS is consistent with hearing sensitivity. Words were presented at 80 dB HL is above (greater than or equal to 60 dB HL) intensity level for average conversational speech. The NU-6 Ordered by Difficulty Word List (10 words) was used for testing. and Contralateral masking was used. LEFT EAR: Hearing Sensitivity: Mild sloping to moderate through 2000 Hz rising to mild at 6000 Hz then sloping to moderate at 8000 Hz: Sensorineural hearing loss Word Recognition Score: Excellent (100%). WRS is consistent with hearing sensitivity. Words were presented at 80 dB HL is above (greater than or equal to 60 dB HL) intensity level for average conversational speech. The NU-6 Ordered by Difficulty Word List (10 words) was used for testing. and Contralateral masking was used. RECOMMENDATIONS * Continue medical follow-up with Catia Barr PA-C. * The patient was counseled regarding benefits/limitations of hearing aids * Encouraged patient to reach out to insurance provider to determine if they are eligible for a hearing aid benefit. Patient was advised that if they return to [facility], the cost of hearing aids would likely be [id number]. Jenny Estrella CCC-A M[place]ORM[place] Abbrev- iation Definition Degree of hearing sensitivity dB range WNL within normal limits WNL 0 - 20 SNHL sensorineural hearing loss Mild 20-40 CHL conductive hearing loss Moderate 40-55 MHL mixed hearing loss Moderately-Severe 55-70 WRS word recognition score Severe 70-90 ME middle ear Profound 90 + TM tympanic membrane documented in this encounter [facility] 03-05-2024 Note HNO ID: [id number] Author: MARY HAMLIN AuD, CCC-A Service: ? Author Type: Drivematic Machine Operator Type: Progress Notes Filed: 03/05/2024 18:48 Note Text: [facility] [place] [place] AUDIOLOGIC EVALUATION REPORT Name: Diamond Lyons [facility]#: [id number] Date of Service: 03/05/2024 Date of : 1965 Age: [age] year old Referred by: GARRET Shine Referred for: Evaluation of the cause of disorder of hearing, tinnitus, or balance. Referral documented: In an order in Epic Patient's major complaints: Reduced hearing in both ears, History of noise exposure from either occupational or recreational sources Diamond Lyons was seen for an initial audiologic evaluation. See Procedures Tab for Audiogram. 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 Refer to the Auditory Test Record for complete audiometric results. The patient was counseled about the test findings and appropriate audiologic recommendations were made. OTOSCOPY RIGHT EAR: Otoscopic inspection revealed ear canal was clear with an identifiable cone of light. LEFT EAR: Otoscopic inspection revealed ear canal was clear with an identifiable cone of light. TYMPANOMETRY Description of procedure: This test is an objective evaluation of middle ear function. CPT code: 61369 RIGHT EAR: Normal ME pressure with normal TM compliance (mobility). LEFT EAR: Normal ME pressure with normal TM compliance (mobility). ACOUSTIC REFLEXES Description of procedure: This test is an objective measure of auditory and facial nerve pathways. CPT code: 57175, 69517 RIGHT EAR PROBE EAR: (ipsi right stimulus ear; contralateral left stimulus ear): Acoustic Reflex Pattern Did not test Acoustic Reflex Decay (left stimulus ear): Did not test. LEFT EAR PROBE EAR: (ipsi left stimulus ear; contralateral right stimulus ear): Acoustic Reflex Pattern Did not test Acoustic Reflex Decay (right stimulus ear):Did not test. PURE TONE AUDIOMETRY AND SPEECH TESTING Description of procedure: This test is an objective evaluation hearing sensitivity via air and bone conduction and speech recognition testing. CPT code:20628 RIGHT EAR: Hearing Sensitivity: Mild sloping to moderate through 2000 Hz rising to normal at 6000 Hz then sloping to moderate at 8000 Hz: Sensorineural hearing loss Word Recognition Score: Excellent (100%). WRS is consistent with hearing sensitivity. Words were presented at 80 dB HL is above (greater than or equal to 60 dB HL) intensity level for average conversational speech. The NU-6 Ordered by Difficulty Word List (10 words) was used for testing. and Contralateral masking was used. LEFT EAR: Hearing Sensitivity: Mild sloping to moderate through 2000 Hz rising to mild at 6000 Hz then sloping to moderate at 8000 Hz: Sensorineural hearing loss Word Recognition Score: Excellent (100%). WRS is consistent with hearing sensitivity. Words were presented at 80 dB HL is above (greater than or equal to 60 dB HL) intensity level for average conversational speech. The NU-6 Ordered by Difficulty Word List (10 words) was used for testing. and Contralateral masking was used. RECOMMENDATIONS * Continue medical follow-up with Catia Barr PA-C. * The patient was counseled regarding benefits/limitations of hearing aids * Encouraged patient to reach out to insurance provider to determine if they are eligible for a hearing aid benefit. Patient was advised that if they return to [facility], the cost of hearing aids would likely be [id number]. Mary Hamlin, Jenny, CCC-A [place] Abbrev- iation Definition Degree of hearing sensitivity dB range WNL within normal limits WNL 0 - 20 SNHL sensorineural hearing loss Mild 20-40 CHL conductive hearing loss Moderate 40-55 MHL mixed hearing loss Moderately-Severe 55-70 WRS word recognition score Severe 70-90 ME middle ear Profound 90 + TM tympanic membrane [facility] 03-05-2024 Note HNO ID: [id number] Author: CATIA BARR PA-C Service: ? Author Type: Physician Railroad Dining Car Steward/Stewardess Type: Progress Notes Filed: 03/05/2024 17:03 Note Text: CC: Diamond Lyons is 58 year old female who is self referred for hearing loss Assessment and Plan: (H90.3) Sensorineural hearing loss (SNHL) of both ears (primary encounter diagnosis) ~audiogram demonstrates BL SNHL in cookie bite pattern with normal middle ear function ~ordered Hearing Aid Evaluation ~follow up with me as needed HPI: Diamond is a 58 year old who reports hearing loss of both ears. Her and son notice the hearing loss more than she does. This has been an ongoing problem for years and has become more pronounced in the last 4-5 years. Denies otalgia, otorrhea, h/o ear surgeries, or tubes. She is interested in the next steps. ALLERGIES Allergen Reactions Codeine Shortness of Breath Contrast Dye Hives Penicillins Shortness of Breath Sulfa (Sulfonamide * Shortness of Breath Teramycin [Oxytetra* Shortness of Breath Current Outpatient Medications Medication Sig nitrofurantoin monohydrate and macrocrystal (MACROBID) 100 mg capsule TAKE 1 CAPSULE TWICE A DAY solifenacin (VESICARE) 5 mg tablet Take 1 tablet by mouth once daily. MYRBETRIQ 50 mg Tb24 Take 50 mg by mouth once daily. calcium carbonate (CALTRATE 600) 600 mg (1,500 mg) tab Take 600 mg by mouth once daily. budesonide-formoterol (SYMBICORT) 80-4.5 mcg/actuation inhaler Inhale 2 Puffs as instructed twice daily. pravastatin (PRAVACHOL) 20 mg ORAL tablet Take 40 mg by mouth daily at bedtime. No current facility-administered medications for this visit. PAST MEDICAL HISTORY Diagnosis Date Abdominal pain, left upper quadrant Diaphragmatic hernia without mention of obstruction or gangrene Other specified gastritis antral Unspecified asthma(493.90) PAST SURGICAL HISTORY Procedure Laterality Date DELIVERY ONLY 1995 , low cervical COLONOSCOP W/ OR W/O [facility] SPEC 08/04/06 Normal EGD W/O [facility] SPECIMEN W/BX 08/04/06 HH and Antral gastritis PAST SURGICAL HISTORY OF TENDON RELEASE BILAT THUMBS VAGINAL HYSTERECTOMY 1997 Hysterectomy, vaginal Social History: Social History Tobacco Use Smoking status: Never Substance Use Topics Alcohol use: No Drug use: No No family history on file. Review Of Systems GENERAL: No weight loss, malaise or fevers. HEENT: Negative for frequent or significant headaches, Ears Positive for hearing loss NECK: Negative for lumps, goiter, pain and significant neck swelling I have confirmed and edited as necessary the ROS obtained by others. Catia Barr PA-C PHYSICAL EXAM: There were no vitals taken for this visit. No weight on file for this encounter. General appearance: Well appearing, alert, in no acute distress, well-hydrated, well nourished. Cranial Nerves: III-XII: grossly intact Skin: Skin color, texture, turgor normal, no suspicious rashes or lesions Head: normocephalic, no masses, lesions, tenderness or abnormalities Ears: Bilateral external ear(s) normal, external auditory canal(s) clear, tympanic membrane(s) normal. Neuro: Gait normal. Mental status revealed patient to be alert and oriented. Mood is appropriate Catia Barr PA-C Medical Decision Making: Problems: Moderate: 1+ chronic illnesses with change Data: Unique test result(s) reviewed: 1 Risk: Low: Low risk from testing/treatment Medical Decision Making Level: 3 - Low [facility] 03-05-2024 History of Present illness Narrative CC: Diamond Lyons is 58 year old female who is self referred for hearing loss Assessment and Plan: (H90.3) Sensorineural hearing loss (SNHL) of both ears (primary encounter diagnosis) ~audiogram demonstrates BL SNHL in cookie bite pattern with normal middle ear function ~ordered Hearing Aid Evaluation ~follow up with me as needed HPI: Diamond is a 58 year old who reports hearing loss of both ears. Her and son notice the hearing loss more than she does. This has been an ongoing problem for years and has become more pronounced in the last 4-5 years. Denies otalgia, otorrhea, h/o ear surgeries, or tubes. She is interested in the next steps. ALLERGIES Allergen Reactions Codeine Shortness of Breath Contrast Dye Hives Penicillins Shortness of Breath Sulfa (Sulfonamide * Shortness of Breath Teramycin [Oxytetra* Shortness of Breath Current Outpatient Medications Medication Sig nitrofurantoin monohydrate and macrocrystal (MACROBID) 100 mg capsule TAKE 1 CAPSULE TWICE A DAY solifenacin (VESICARE) 5 mg tablet Take 1 tablet by mouth once daily. MYRBETRIQ 50 mg Tb24 Take 50 mg by mouth once daily. calcium carbonate (CALTRATE 600) 600 mg (1,500 mg) tab Take 600 mg by mouth once daily. budesonide-formoterol (SYMBICORT) 80-4.5 mcg/actuation inhaler Inhale 2 Puffs as instructed twice daily. pravastatin (PRAVACHOL) 20 mg ORAL tablet Take 40 mg by mouth daily at bedtime. No current facility-administered medications for this visit. PAST MEDICAL HISTORY Diagnosis Date Abdominal pain, left upper quadrant Diaphragmatic hernia without mention of obstruction or gangrene Other specified gastritis antral Unspecified asthma(493.90) PAST SURGICAL HISTORY Procedure Laterality Date DELIVERY ONLY 1995 , low cervical COLONOSCOP W/ OR W/O [facility] SPEC 08/04/06 Normal EGD W/O [facility] SPECIMEN W/BX 08/04/06 HH and Antral gastritis PAST SURGICAL HISTORY OF TENDON RELEASE BILAT THUMBS VAGINAL HYSTERECTOMY 1997 Hysterectomy, vaginal Social History: Social History Tobacco Use Smoking status: Never Substance Use Topics Alcohol use: No Drug use: No No family history on file. Review Of Systems GENERAL: No weight loss, malaise or fevers. HEENT: Negative for frequent or significant headaches, Ears Positive for hearing loss NECK: Negative for lumps, goiter, pain and significant neck swelling I have confirmed and edited as necessary the ROS obtained by others. Catia Barr PA-C PHYSICAL EXAM: There were no vitals taken for this visit. No weight on file for this encounter. General appearance: Well appearing, alert, in no acute distress, well-hydrated, well nourished. Cranial Nerves: III-XII: grossly intact Skin: Skin color, texture, turgor normal, no suspicious rashes or lesions Head: normocephalic, no masses, lesions, tenderness or abnormalities Ears: Bilateral external ear(s) normal, external auditory canal(s) clear, tympanic membrane(s) normal. Neuro: Gait normal. Mental status revealed patient to be alert and oriented. Mood is appropriate Catia Barr PA-C Medical Decision Making: Problems: Moderate: 1+ chronic illnesses with change Data: Unique test result(s) reviewed: 1 Risk: Low: Low risk from testing/treatment Medical Decision Making Level: 3 - Low documented in this encounter [facility] Evaluation note Diagnosis Other specified hearing loss, unspecified ear- Primary [facility] Sensorineural hearing loss (SNHL) of both ears- [facility] Sensorineural hearing loss, bilateral- [facility] Diagnosis Trigger middle finger of right hand- Primary Trigger finger (acquired) [facility] Trigger middle finger of right hand- Primary Trigger finger (acquired) [facility] Diagnosis Pre-operative examination- Primary Preoperative examination, unspecified Recurrent UTI Urinary tract infection, site not specified Mixed hyperlipidemia Mild intermittent asthma without complication Unspecified asthma Class 2 obesity due to excess calories with body mass index (BMI) of 36.0 to 36.9 in adult, unspecified whether serious comorbidity present Trigger middle finger of right hand Trigger finger (acquired) * Assessment & Plan Note - Unique Winn APRN.CNP - 04/07/2024 3:28 PM EDT Associated Problem(s): Asthma Assessment: controlled with rx as needed * Assessment & Plan Note - Unique Winn APRN.CNP - 04/07/2024 3:26 PM EDT Associated Problem(s): Class 2 obesity due to excess calories with body mass index (BMI) of 36.0 to36.9 in adult Assessment: Body mass index is 36.13 kg/m . * Assessment & Plan Note - Unique Winn APRN.CNP - 04/07/2024 3:25 PM EDT Associated Problem(s): Mixed hyperlipidemia Assessment: c/w statin * Assessment & Plan Note - Unique Winn APRN.CNP - 04/07/2024 3:25 PM EDT Associated Problem(s): Recurrent UTI Assessment: daily Macrobid, use to follow with urology, now PCP manages, denies any current UTI symptoms documented in this encounter [facility] note* Diagnosis Trigger middle finger of right hand- Primary Trigger finger (acquired) documented in this encounter [facility] note* Diagnosis Pre-operative examination- Primary Preoperative examination, unspecified Recurrent UTI Urinary tract infection, site not specified Mixed hyperlipidemia Mild intermittent asthma without complication Unspecified asthma Class 2 obesity due to excess calories with body mass index (BMI) of 36.0 to 36.9 in adult, unspecified whether serious comorbidity present Sensorineural hearing loss, bilateral- Primary documented in this encounter [facility] note* Diagnosis Pre-operative examination- Primary Preoperative examination, unspecified Recurrent UTI Urinary tract infection, site not specified Mixed hyperlipidemia Mild intermittent asthma without complication Unspecified asthma Class 2 obesity due to excess calories with body mass index (BMI) of 36.0 to 36.9 in adult, unspecified whether serious comorbidity present Trigger finger of left thumb- Primary documented in this encounter [facility] note* Diagnosis Pain Generalized pain documented in this encounter [facility] note* Diagnosis Abnormal finding on breast imaging Other (abnormal) findings on radiological examination of breast documented in this encounter [facility] note* Diagnosis Encounter for follow-up- Primary Abnormal finding on breast imaging Other (abnormal) findings on radiological examination of breast documented in this encounter [facility] note* Diagnosis Pre-operative examination- Primary Preoperative examination, unspecified Recurrent UTI Urinary tract infection, site not specified Mixed hyperlipidemia Mild intermittent asthma without complication Unspecified asthma Class 2 obesity due to excess calories with body mass index (BMI) of 36.0 to 36.9 in adult, unspecified whether serious comorbidity present Trigger finger of left thumb- Primary Trigger finger of left thumb documented in this encounter [facility] for referral (narrative)* Diagnostic Procedure Only (Routine) - Closed Specialty Diagnoses / Procedures Referred By Contanamika t Referred To Contact XR IMAGING Diagnoses Pain Procedures XR HAND GENERAL 3V PA/LAT/OBL RIGHT RADEX HAND MINIMUM 3 VIEWS Sharon Champion DO [address] [place] [address] [place] [address] Referral ID Status Reason Start Date Expiration Date V isits Requested Visits Authorized [id number] Closed Auto-Generate d Referral 03/10/2024 04/09/2025 1 1 [facility] for visit Narrative* Diagnostic Procedure Only (Routine) - Closed Specialty Diagnoses / Procedures Referred By Anitha t Referred To Contact XR IMAGING Diagnoses Pain Procedures XR HAND GENERAL 3V PA/LAT/OBL RIGHT RADEX HAND MINIMUM 3 VIEWS Sharon Champion DO [address] [place] [address] [place] [address] Referral ID Status Reason Start Date Expiration Date V isits Requested Visits Authorized [id number] Closed Auto-Generate d Referral 03/10/2024 04/09/2025 1 1 [facility] Summary Purpose Family History No Family History Records FoundNo Family History Records FoundNo Family History Records FoundNo Family History Records Found Advance Directives No Advanced Directives Records FoundNo Advanced Directives Records FoundNo Advanced Directives Records FoundNo Advanced Directives Records Found Reason for Referral Specialty Diagnoses / Procedures Referred By Anitha t Referred To Contact Diagnoses Other specified hearing loss, unspecified ear Procedures HEARING TEST/AUDIOGRAM COMPRE AUDIOMETRY THRESHOLD EVAL SP RECOGNIJ Catia Barr PA-C [address] [id number] [facility] [address] [place] [address] Referral ID Status Reason Start Date Expiration Date Visits Requested Visits Authorized [id number] Pending Review Auto-Generat ed Referral 12/16/2023 12/15/2024 1 1 Specialty Diagnoses / Procedures Referred By Anitha t Referred To Contact Diagnoses Sensorineural hearing loss (SNHL) of both ears Procedures HEARING AID CASIE-BINAURAL HEARING AID CASIE-BINAURAL Catia Barr PA-C [address] [place] [address] [facility] [address] [address] Referral ID Status Reason Start Date Expiration Date Visits Requested Visits Authorized [id number] Pending Review Auto-Generat ed Referral 03/05/2024 03/05/2025 1 1 Specialty Diagnoses / Procedures Referred By Contac t Referred To Contact Procedures HEARING TEST/AUDIOGRAM COMPRE AUDIOMETRY THRESHOLD EVAL SP MIRIANIJ Mary Hamlin, AuD, CCC-A [address] [address] [facility] [address] [place] [address] Referral ID Status Reason Start Date Expiration Date Visits Requested Visits Authorized [id number] Pending Review Auto-Generat ed Referral 03/05/2024 03/06/2025 1 1 Specialty Diagnoses / Procedures Referred By Contac t Referred To Contact Diagnoses Abnormal finding on breast imaging Procedures BREAST IMAGING SECOND OPINION READING Unique Gallardo SENIOR NURSE MANAGER-ELECTRONIC INSTALLER [address] [facility] 3rd Floor, [address] [place] [address] Referral ID Status Reason Start Date Expiration Date V isits Requested Visits Authorized [id number] New Request 07/20/2024 08/14/2025 1 1 Specialty Diagnoses / Procedures Referred By Contac t Referred To Contact Diagnoses Abnormal finding on breast imaging Procedures US BREAST LIMITED UNILATERAL RIGHT Unique Gallardo SENIOR NURSE MANAGER-ELECTRONIC INSTALLER [address] [facility] 3rd Floor, [address] [place] [address] Referral ID Status Reason Start Date Expiration Date V isits Requested Visits Authorized [id number] New Request 07/22/2024 08/16/2025 1 1 Specialty Diagnoses / Procedures Referred By Contac t Referred To Contact Diagnoses Abnormal finding on breast imaging Procedures MAMMO DIAGNOSTIC WITH FABY RIGHT Unique Gallardo SENIOR NURSE MANAGER-ELECTRONIC INSTALLER [address] [facility] 3rd Floor, [address] [place] [address] Referral ID Status Reason Start Date Expiration Date V isits Requested Visits Authorized [id number] New Request 07/22/2024 08/16/2025 1 1 Additional Source Comments INFORMATION SOURCE (unrecogn ized section and content) DATE CREATED AUTHOR 01/23/2021 Osmin Rashid [facility] DATE CREATED AUTHOR AUTHOR'S ORGANIZ ATION 04/09/2024 [facility] DATE CREATED AUTHOR AUTHOR'S ORGANIZ ATION 06/19/2024 [facility] DATE CREATED AUTHOR AUTHOR'S ORGANIZ ATION 07/24/2024 [facility] Source Comments (unrecognize d section and content) In the event this informatio n is protected by the Federal Confidentiality of Alcohol and Drug Abuse Patient Records regulations: The Federal rules restrict any use of the information to criminally investigate or prosecute any alcohol or drug abuse patient.[facility] the event this information is protected by the Federal Confidentiality of Alcohol and Drug Abuse Patient Records regulations: The Federal rules restrict any use of the information to criminally investigate or prosecute any alcohol or drug abuse patient.[facility] the event this information is protected by the Federal Confidentiality of Alcohol and Drug Abuse Patient Records regulations: The Federal rules restrict any use of the information to criminally investigate or prosecute any alcohol or drug abuse patient.[facility] the event this information is protected by the Federal Confidentiality of Alcohol and Drug Abuse Patient Records regulations: The Federal rules restrict any use of the information to criminally investigate or prosecute any alcohol or drug abuse patient.[facility] the event this information is protected by the Federal Confidentiality of Alcohol and Drug Abuse Patient Records regulations: The Federal rules restrict any use of the information to criminally investigate or prosecute any alcohol or drug abuse patient.[facility] the event this information is protected by the Federal Confidentiality of Alcohol and Drug Abuse Patient Records regulations: The Federal rules restrict any use of the information to criminally investigate or prosecute any alcohol or drug abuse patient.[facility] the event this information is protected by the Federal Confidentiality of Alcohol and Drug Abuse Patient Records regulations: The Federal rules restrict any use of the information to criminally investigate or prosecute any alcohol or drug abuse patient.[facility] the event this information is protected by the Federal Confidentiality of Alcohol and Drug Abuse Patient Records regulations: The Federal rules restrict any use of the information to criminally investigate or prosecute any alcohol or drug abuse patient.[facility] the event this information is protected by the Federal Confidentiality of Alcohol and Drug Abuse Patient Records regulations: The Federal rules restrict any use of the information to criminally investigate or prosecute any alcohol or drug abuse patient.[facility] the event this information is protected by the Federal Confidentiality of Alcohol and Drug Abuse Patient Records regulations: The Federal rules restrict any use of the information to criminally investigate or prosecute any alcohol or drug abuse patient.[facility] the event this information is protected by the Federal Confidentiality of Alcohol and Drug Abuse Patient Records regulations: The Federal rules restrict any use of the information to criminally investigate or prosecute any alcohol or drug abuse patient.[facility] Care Teams (unrecognized sec tion and content) Air Lift Operator Relationship Specialty Start Date End Date Bryce Cleary (Hist) [facility] [address] [place] [address] PCP - General 08/19/06 Air Lift Operator Relationship Specialty Start Date End Date Bryce Cleary (Hist) [facility] [address] [place], [place] [address] PCP - General 08/19/06 Air Lift Operator Relationship Specialty Start Date End Date Bryce Cleary (Hist) [facility] [address] [place], [place] [address] PCP - General 08/19/06 Air Lift Operator Relationship Specialty Start Date End Date Bryce Cleary (Hist) [facility] [address] [place], [place] [address] PCP - General 08/19/06 Air Lift Operator Relationship Specialty Start Date End Date [facility], [facility] PCP - General 04/07/24 Air Lift Operator Relationship Specialty Start Date End Date [facility], [facility] PCP - General 04/07/24 Air Lift Operator Relationship Specialty Start Date End Date [facility], [facility] PCP - General 04/07/24 Air Lift Operator Relationship Specialty Start Date End Date [facility], [facility] PCP - General 04/07/24 Air Lift Operator Relationship Specialty Start Date End Date Bryce Cleary (Hist) [facility] [address] [place], [place] [address] PCP - General 08/19/06 04/06/24 Air Lift Operator Relationship Specialty Start Date End Date Aleksandr Infante DO [address] [facility] [place] [address] [place] [address] PCP - General Family Medicine 07/22/24 Air Lift Operator Relationship Specialty Start Date End Date Aleksandr Infante DO [address] [place] [address] [place] [id number] PCP - General Family Medicine 07/22/24 Air Lift Operator Relationship Specialty Start Date End Date Aleksandr Infante DO [address] [place] [phone] PCP - General Family Medicine 07/22/24 Reason for Visit (unrecogniz ed section and content) Reason Comments Hearing Loss Want to go over next steps. Reason Comments New Pain Reason Comments Consult Reason Comments Established Patient Post Op Specialty Diagnoses / Procedures Referred By Contac t Referred To Contact Diagnoses Sensorineural hearing loss (SNHL) of both ears Procedures HEARING AID CASIE-BINAURAL HEARING AID CASIE-BINAURAL Catia Barr PA-C [address] [place] [address] Otol [facility] Main [address] [place], [place] [id number] Referral ID Status Reason Start Date Expiration Date V isits Requested Visits Authorized [id number] Closed Auto-Generate d Referral 03/05/2024 03/05/2025 1 1 Reason Comments Established Patient Trigger Finger Specialty Diagnoses / Procedures Referred By Contanamika t Referred To Contact Diagnoses Abnormal finding on breast imaging Procedures BREAST IMAGING SECOND OPINION READING Unique Gallardo, SENIOR NURSE MANAGER-ELECTRONIC INSTALLER [address] [facility] 3rd Floor, [address] [place] [address] Referral ID Status Reason Start Date Expiration Date V isits Requested Visits Authorized [id number] New Request 07/20/2024 08/14/2025 1 1 Reason Comments New Patient 2nd opinion regardin g recent abnormal right breast imaging, biopsy was recommended. Pt denies any breast changes. Specialty Diagnoses / Procedures Referred By Contac t Referred To Contact Certified Nurse Practitioner / Mammography Diagnoses New Patient right breast abnormal breast imaging recommending breast bx- no family hx of breast cancer- imaging and records in [facility]- no additional breast issues or concerns. Procedures NEW DIAGNOSTIC BREAST CLINIC Self, Self Unique Gallardo SENIOR NURSE MANAGER-ELECTRONIC INSTALLER [address] [facility] 3rd Floor, [address] [place] [address] Referral ID Status Reason Start Date Expiration Date V isits Requested Visits Authorized [id number] New Request 07/22/2024 08/16/2025 1 1 Specialty Diagnoses / Procedures Referred By Contac t Referred To Contact Diagnoses Abnormal finding on breast imaging Procedures MAMMO DIAGNOSTIC WITH FABY RIGHT Prosper, Unique Fabian SENIOR NURSE MANAGER-ELECTRONIC INSTALLER [address] [facility] [address] Floor, [address] [place] [address] Referral ID Status Reason Start Date Expiration Date V isits Requested Visits Authorized [id number] New Request 07/22/2024 08/16/2025 1 1 Specialty Diagnoses / Procedures Referred By Contac t Referred To Contact Diagnoses Abnormal finding on breast imaging Procedures US BREAST LIMITED UNILATERAL RIGHT Prosper, Unique Fabian SENIOR NURSE MANAGER-ELECTRONIC INSTALLER [address] [facility] 3rd Floor, [address] [place] [address] Referral ID Status Reason Start Date Expiration Date V isits Requested Visits Authorized [id number] New Request 07/22/2024 08/16/2025 1 1 FOR RECORDS PERTAINING TO PATIENTS WHO ARE OR HAVE BEEN ENROLLED IN A CHEMICAL DEPENDENCY/SUBSTANCEABUSE PROGRAM, SOME INFORMATION MAY BE OMITTED. This clinical summary was aggregated from multiple sources. Caution should be exercised in using it in the provision of clinical care. This summary normalizes information from multiple sources, and as a consequence, information in this document may materially change the coding, format and clinical context of patient data. In addition, data may be omitted in some cases. CLINICAL DECISIONS SHOULD BE BASED ON THE PRIMARY CLINICAL RECORDS. [facility]. provides no warranty or guarantee of the accuracy or completeness of information in this document.
[2024-08-09 08:49] LABS: Absolute Lymphocyte Count 3.16 X10^3/uL (0.83-4.51); Absolute Neutrophil Count 3.5 X10^3/uL (2.0-7.7); Basophil# 0.09 X10^3/uL; Basophil% 1.2 % (0-1); Eosinophil# 0.44 X10^3/uL; Eosinophils% 5.7 % (0-5); Hematocrit 40.5 % (37-47); Hemoglobin 13.5 g/dL (12.0-15.0); Lymphocyte # 3.16 X10^3/ul (0.83-4.51); Lymphocyte % 40.8 % (19-41); Mean Corp Hgb Conc 33.3 g/dL (32-36); Mean Corpuscular Hgb 30.2 pg (27.0-32.0); Mean Corpuscular Volume 90.6 fL (81-99); Monocyte# 0.51 X10^3/uL; Monocyte% 6.6 % (0-10); NRBC Flagged by Analyzer 0 % (0-5); Neutrophil % 45.2 % (47-70); Platelet Count 418 K/mm3 (150-450); RBC Distribution Width CV 12.7 % (11.6-14.6); RBC Distribution Width SD 41.9 fl (35.1-43.9); Red Blood Count 4.47 M/mm3 (4.2-5.4); White Blood Count 7.7 K/mm3 (4.4-11.0)
[2024-08-09 09:16] LABS: ALB/GLOB Ratio 1.1 RATIO (0.9-2.4); AST(SGOT) 15 U/L (15-37); Alanine Aminotransfer ALT/SGPT 33 U/L (13-56); Alkaline Phosphatase 84 U/L (45-117); Anion Gap 8 (5-15); BUN 13 mg/dL (7-18); BUN/Creat Ratio 18.5 RATIO (10-20); Calcium,Total 9.2 mg/dL (8.5-10.1); Chloride 104 mmol/L (98-107); Cholesterol 147 mg/dL (200); EST Glomerular Filtration Rate 91 mL/min (>60); Est Glom Filt Rate - Afr Amer 110 mL/min (>60); Globulin 3.7 g/dL (2.2-4.2); Glucose 102 mg/dL (74-106); High Density Lipoprotein 35 mg/dL; Potassium 4.2 mmol/L (3.5-5.1); Protein, Total 7.7 g/dL (6.4-8.2); Sodium Level 140 mmol/L (136-145); Triglycerides 211 mg/dL; Very Low Density Lipoprotein 42 mg/dL (5-40)
[2024-08-09 09:19] LABS: Hemoglobin A1c 5.6 % (3.8-5.6)
== END | disposition home or self-care (01) ==
LOC: LAB 07:55
PROVIDERS: PCP Family Medicine; Referring Provider Family Medicine; Visit Provider Family Medicine
DX: Z00.00 Encounter for general adult medical examination without abnormal findings (principal)
CPT/HCPCS: 36415; 80053; 80061; 83036; 85025

== ENCOUNTER → 2024-09-16 | Outpatient (CLI) | payer OTHER, SELFPAY ==
--- NOTE | 2024-09-16 | MASS_PTH ---
PATIENT: MARCELLA JACOBS LOC: [facility] U#:[id number] AGE/SX: 59/F ROOM: RE09/16/[address]: Dr. Sam Contreras MD : 1965 BED: DIS: 09/16/2024 SPEC #: [id number] RECD: 09/16/24 15:47 STATUS: CHRISTINE RETami #: [id number] RAVEN: 09/16/24 00:[address]: Sam Contreras DEPT: SURGICAL PATHOLOGY RECD BY: Josie Israel ENTERED: 09/17/24 07:51 SP TYPE: Mass OTHR DR: Dr. Lucas Infante, DO Tissues: Forearm, NOS Procedures: Surgery Specimen Level IV HEADER OPERATION: Excision left forearm mass PRE-OP DIAGNOSIS: Left forearm mass TISSUE SUBMITTED: Short proximal, long radial left forearm mass MICROSCOPIC DIAGNOSIS Skin lesion of left forearm, biopsy: Consistent with benign fibrous histiocytoma (dermatofibroma). AM.mr 09/20/2024 COMMENT Immunohistochemistry ([id number]) supports the above diagnosis. MICROSCOPIC DESCRIPTION Slides are reviewed. GROSS DESCRIPTION Received in fixative is one container labeled with the patient's name and designated Left forearm mass. The specimen consists of an ellipse of light segura excised skin that has been oriented and measures 2.6 x 1.2 x 0.6cm. The specimen is differentially inked as follows: proximal-red, distal-green, radial-black, ulnar-blue. The specimen is serially sectioned along its narrow axis and totally submitted in two cassettes. AM. 09/17/2024 TC: CPT:54775
--- NOTE | 2024-09-16 | IMM_PTH ---
PATIENT: MARCELLA JACOBS LOC: [facility] U#:[id number] AGE/SX: 59/F ROOM: RE09/16/[address]: Dr. Sam Contreras MD : 1965 BED: DIS: 09/16/2024 SPEC #: [id number] RECD: 09/20/24 13:02 STATUS: CHRISTINE REQ #: [id number] RAVEN: 09/16/24 00:[address]: Sam Contreras DEPT: IMMUNOHISTOCHEMISTRY RECD BY: Oliver Lowe ENTERED: 09/20/24 13:05 SP TYPE: IMMUNO OTHR DR: Dr. Lucas Infante DO Tissues: Skin of forearm, NOS Procedures: SMA (add) CD34 (add) CD56 (add) CEA (add) CK20 (add) CK5-6 (add) DESMIN (add) ANISA (add) KI-67 (add) P53 (add) Vimentin (add) NEUROFIL (add) Pankeratin (initial) MELAN-A (add) P40 (add) CD68 (ADD) S-100 (add) PHYSICIAN & [address] [address] SPECIMEN INFORMATION: Tissue Source: Left forearm mass Clinical Info: Left forearm mass Specimen Number: [id number] CPT code: 19368,61194r09 METHODOLOGY: Deparaffinized sections of prefer/formalin-fixed tissue or PAP/DQ stained slides are incubated with monoclonal/polyclonal antibodies/oligonucleotide probes. Localization is made via biotin free immunoperoxidase method. Appropriate controls are performed and reacted as expected. Results on target cell population are indicated in the following table: RESULTS: ANTIBODY / CLONE RESULT AE1-3 (AE1/AE3/PCK26) negative CK20 (KS20.8) negative Vimentin (V9) positive CD34 (QBEnd-10) negative CD68 (KP-1) positive Actin (1A4) negative Desmin (CE-R-11) negative Melan A (A103) negative S-100 (4C4.9) negative Neurofil (2F11) negative CD56 (123C3.D5) negative CK5-6 (D5 & 1684) negative P40 (BC28) negative ANISA (E29) negative P53 (DO-7) negative, null pattern Ki-67 (30-9) positive, low These tests were developed and their performance characteristics determined by [facility]. They may not have been cleared or approved by the U.S. Food and Drug Administration. The FDA has determined that such clearance or approval is not necessary. The above immunohistochemical/dualISH markers are ordered and reviewed by the Pathologist. INTERPRETATION: Skin lesion of left forearm, biopsy: Consistent with dermatofibroma. 09/21/2024
== END | disposition home or self-care (01) ==
LOC: LABSPEC 16:00
PROVIDERS: PCP Family Medicine; Referring Provider Surgery Plastic and Reconstructive Surgery; Visit Provider Surgery Plastic and Reconstructive Surgery
DX: R22.32 Localized swelling, mass and lump, left upper limb (principal)
CPT/HCPCS: 88305; 88341; 88342

== ENCOUNTER 2025-07-18 08:57 | Day surgery (SDC) | payer MEDICAID, SELFPAY ==
[2025-07-18] VITALS (8 sets, daily range): BP systolic 104–149; BP diastolic 69–84; PULSE 72–93; RESP 14–16; TEMP 36–36.5; O2SAT 93–96; BMI 34.4
--- NOTE | 2025-07-18 09:43 | HP.PCM_ITS ---
[facility] - General General Date of Service: 07/18/25 HPI Narrative MARCELLA JACOBS, is a 60 F who presents for screening colonoscopy due to history of colon polyps as well as multiple second-degree relatives with colon cancer. Patient's last colonoscopy was in 04/2020. 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 Patient does have multiple second-degree relatives with colon cancer her paternal grandfather in his 30s, paternal aunt in her 50s to 60s as well as a paternal cousin. Patient's bowel movements daily denies any blood. Patient denies any chronic abdominal pain/nausea/vomiting/reflux. [facility] Medical History (Updated 07/18/25 @ 09:[address] Karyn Powers MD) Loss of hearing Wears glasses High cholesterol Non-smoker History of stress test History of trigger finger History of high cholesterol History of hearing problem History of UTI SOB (shortness of breath) Asthma Home Medications ?Medication ?Instructions ?Recorded ?Last Taken ?Type pravastatin 40 mg tablet 40 mg PO QHS 02/06/15 History coenzyme Q10 30 mg capsule (CoQ-10) 100 mg PO QHS 09/1307/17/25 History nitrofurantoin macrocrystal 50 mg 100 mg PO QHS preven t UTI 10/03/19 07/17/25 History capsule calcium 600 mg (as 2 ea PO QHS 03/17/20 5 History carbonate)-vitamin D3 20 mcg (800 unit) tablet fluticasone propionate 110 1 puff inhalation BID asthm a 03/17/20 07/17/25 History mcg/actuation HFA aerosol inhaler Allergy/AdvReac Type Severity Reaction Status Date / Time codeine Allergy Shortness Verified 07/15/25 09:48 of breath Iodinated Contrast Media Allergy Hives Verified 07/15/25 09:48 (CONTRASTS) Penicillins Allergy Shortness Verified 07/15/25 09:48 of breath Sulfa (Sulfonamide Allergy Shortness Verified 07/15/25 09:48 Antibiotics) of breath Family History Grandfather Colon cancer Mother Asthma CVA (cerebral vascular accident) Mother Cancer esophageal Other CAD (coronary artery disease) Surgical History (Updated 07/15/25 @ 09:56 by Svitlana Titus) S/P trigger finger release History of esophagogastroduodenoscopy (EGD) History of colonoscopy H/O section History of hysterectomy Social History Smoking Status: Never smoker alcohol intake: never substance use type: does not use additional social history: pt denies vaping, denies edibles, denies marijuana use, denies aspirin and denies ibuprofen use pt denies any hx of blood clots Past Medical/Surgical History Planned Operation Planned Operative Procedure(s): cscope S.O.S: No Previous Hospitalizations/Surgeries HX Hospitalizations: No HX of Surgeries: wrist tendon releases EGD/colonoscopy hysterectomy right thumb trigger release 2012 left trigger, 3,4,5/ right 4th olvin releaes 03/2020 Any Problems With Anesthesia: No You/Your Family Experience Fever (Hyperthermia) With Anes: No Cholinesterase deficiency: No Cardiovascular Hx Chest Pain within Last 2 months: No Hx of Irregular Heartbeat and/or Afib: No Hx Heart Attack: No Hx Congestive Heart Failure: No Hx Rheumatic Fever: No Hx Hypertension: No Hx Internal Defibrillator: No Hx Pacemaker: No Hx Cardiac Catheterization: No Hx Cardiac Surgery/Stents/Etc.: No Hx Stress Test: Yes (per hx,not recent) Hx Pain in Legs when Walking/Leg Cramps: No Respiratory Chronic Cough: No HX of Shortness of Breath: No (denies) Hoarseness: No Hx Chronic Obstructive Pulmonary Disease (COPD): No Hx Asthma: Yes (flovent inhaler daily) Hx Emphysema: No Hx Sleep Apnea: No CPAP: No Hx Respiratory Tract Infection/Cold (presently): No Do You Snore Loudly (louder than talking or can be heard): Yes Do You Often Feel Tired/ Fatigued/ Sleepy Dring Daytime?: No Has Anyone Observed You Stop Breathing During Sleep?: No Result (for STOP score): Negative Hx Smoking: No Smoking Status: Never smoker Gastrointestinal Hx Gastrointestinal Disorders: No Hx Gastrointestinal Bleed: No Hx Ulcer: No Hx Hiatal Hernia: Yes (per hx) Difficulty Chewing/Swallowing: No Special diet followed at home: No Hx Unplanned Weight Loss of 20#: No HX Unplanned Weight Gain of 20#: No Neurological Hx Seizures: No HX Syncope/Blackout Spells/Unconsciousness: No Hx Transient Ischemic Attacks (TIA): No Hx Multiple Sclerosis: No Hx Parkinson's Disease: No Hx Head/Neck Injury: No Hx Headaches: No Hx Back Injury/Pain: No Recent Onset of Speech Difficulty: No Restless Legs: No Does patient have nerve stimulator: No Blood Disorder Hx Leukemia: No Bleeding Tendencies: No Hx Deep Vein Thrombosis: No Hx High Cholesterol: Yes (on med) Blood Transmitted Disease: No Hx Hepatitis: No Hx Cirrhosis: No Hx Anemia: No Hx Blood Disorders: No Reproduction : No Is Patient Lactating: No Hx Hysterectomy: Yes Are You Post Menopause: Yes Genitourinary Hx Renal Disease: Yes (hx UTI's, on med) Hx Dialysis: No Musculoskeletal Hx Arthritis: No Hx Rheumatoid Arthritis: No Hx Gout: No Recent Onset of an Orthopedic Problem: Yes (it band syndrome/bilat knee) Endocrine Hx Diabetes: No Thyroid Disease: No Hx Steroid Therapy: Yes (oral dose 09/2019) Psycho/Social Hx Substance Use: No Hx Alcohol Use: No Hx Anxiety: No Hx Depression: No Mental Illness: No Hx Dementia: No Miscellaneous Hx Cancer: No Recent Exposure to Contagious Disease: No Hx of C-Diff: No Any Loose Teeth: No Allergies codeine Allergy (Verified 07/15/25 09:48) Shortness of breath Iodinated Contrast Media (CONTRASTS) Allergy (Verified 07/15/25 09:48) Hives Penicillins Allergy (Verified 07/15/25 09:48) Shortness of breath Sulfa (Sulfonamide Antibiotics) Allergy (Verified 07/15/25 09:48) Shortness of breath Discharge Is Pt Admitted From a Senior Care, or a Penitentiary: No After D/C, Where Do you Plan to Go: Return Home Vital Signs Vital Signs Vital Signs: 07/18/25 09:16 07/18/25 09:16 Temperature 97.7 F L Temperature Source Temporal Pulse Rate 93 Respiratory Rate 16 Respiratory Pattern Normal Blood Pressure 149/82 H Blood Pressure Mean 104 Blood Pressure Source Monitor Blood Pressure Position Semi-Fowlers Blood Pressure Location Right Arm Pulse Ox 94 Oxygen Delivery Method Room Air Weight Weight: 176 lb 5.917 oz Body Mass Index (BMI) 34.4 Physical Exam Const alert, oriented x3 and no apparent distress HEENT normocephalic and head/scalp atraumatic Resp normal respiratory effort Cardio regular rate GI soft to palpation and non-tender; Negative for non-distended Palpation: Negative for guarding Extremity no clubbing, cyanosis or edema Skin no rashes or lesions noted Neuro CN's II-XII intact bilaterally Psych mental status grossly normal Assessment & Plan Assessment/Plan (1) History of colon polyps: (2) Family history of colon cancer: Surgery Risks - Colonoscopy I discussed with the patient the risks of the procedure: Yes Risks Include but are not Limited To: Risks include but are not limited to: Bleeding, perforation requiring further surgery, inability to complete colonoscopy requiring barium enema.
--- NOTE | 2025-07-18 10:00 | COLBX_PTH ---
PATIENT: MARCELLA JACOBS LOC: EN U#:[id number] AGE/SX: 60/F ROOM: RE07/18/[address]: Dr. Karyn Powers MD : 1965 BED: DIS: 07/18/2025 SPEC #: [id number] RECD: 07/18/25 11:38 STATUS: CHRISTINE REQ #: [id number] RAVEN: 07/18/25 10:[address]: Karyn Powers DEPT: SURGICAL PATHOLOGY RECD BY: Oliver Lowe ENTERED: 07/18/25 13:26 SP TYPE: COLON BX OTHR DR: Dr. Lucas Infante, DO Tissues: A - Transverse colon Procedures: Surgery Specimen Level IV HEADER OPERATION: Colonoscopy with polypectomy PRE-OP DIAGNOSIS: History of colon polyps, family history of colon cancer TISSUE SUBMITTED: A- Transverse polyp MICROSCOPIC DIAGNOSIS A. Transverse colon, polyp, biopsy: * Colonic mucosa with dilated crypts and thermal artifact MICROSCOPIC DESCRIPTION Slides are reviewed. GROSS DESCRIPTION A. Received in fixative is one container labeled with the patient's name and designated Transverse polyp. The specimen consists of multiple irregular fragments of segura tissue that in aggregate measure 0.8 x 0.5 x 0.2 cm, admixed with flocculent material. The specimen is totally submitted in one cassette. [place] 07/18/2025 CPT:80920
--- NOTE | 2025-07-18 10:14 | PCM.PRE.AN2 ---
ASA Classification* ASA Classification ASA Classification: 3 Assessment & Plan Anesthesia* Anesthesia Assessment Anesthesia Assessment: Discussed sedation and/or anesthesia options, risks, benefits, and alternatives with patient/parents/legal guardian/POA. Questions invited. The patient/parents/legal guardian/POA seems to understand and agrees to proceed with anesthesia plan. Reviewed the physical assessment, medical history, allergy history and patient home medications list prior to surgery/procedure/anesthetic and documented any changes. Performed airway and anesthesia risk assessments. Anesthesia Type Anesthesia Type: MAC History Source History Obtained from:: Patient and Chart Anesthesia Focused Assessment* Temperature: 97.7 F Pulse Rate: 93 Blood Pressure: 149/82 Respiratory Rate: 16 Pulse Ox: 94 Oxygen Delivery Method: Room Air Airway Assessment Mouth opens: >3 cm Mallampati Score: IV Teeth Condition: Caps/Crowns (Patient has several crowns. They are all tight.) Neck Range of motion (ROM): Limited ROM (Somewhat Decreased) Labs Anesthesia Preop lab: CBC WBC, (4.4-11.0) 7.7 K/mm3 08/09/24, 08:07 RBC, (4.2-5.4) 4.47 M/mm3 08/09/24, 08:07 Hgb, (12.0-15.0) 13.5 g/dL 08/09/24, 08:07 Hct, (37-47) 40.5 % 08/09/24, 08:07 Plt Count, (150-450) 418 K/mm3 08/09/24, 08:07 CHEMISTRY Potassium, (3.5-5.1) 4.2 mmol/L 08/09/24, 08:07 Sodium, (136-145) 140 mmol/L 08/09/24, 08:07 BUN, (7-18) 13 mg/dL 08/09/24, 08:07 Creatinine, (0.55-1.02) 0.70 mg/dL 08/09/24, 08:07 Glucose, (74-106) 102 mg/dL 08/09/24, 08:07 TSH, (0.358-3.74) 1.82 uIU/mL 12/28/13, 10:08 COAG Pre-Assessment Diagnosis/Proposed Procedure Planned Operative Procedure(s): cscope Anesthesia History Anesthesia History - adult care manager: Anesthesia History - adult care manager Hx Hospitalization No 07/18/25 09:45 Any Problems With Anesthesia No 07/18/25 09:45 Cholinesterase deficiency No 07/18/25 09:45 You/Your Family Experience No 07/18/25 09:45 fever (hyperthermia) with Relationship Recent Exposure to Contagious No 07/18/25 09:45 Disease Does patient have nerve No 07/18/25 09:45 stimulator Patient instructed to have device shut off --Does patient have Pacemaker No 07/18/25 09:16 or ICD? When Was Last Pacemaker Check QUESTION #4 FULL TEXT: You/Your Family Experience fever (hyperthermia) with Anesthesia Last Oral Intake Last Oral intake: Last Oral Intake NPO since 17:00 07/18/25 09:16 Meds taken in AM with sips of water? Meds patient instructed to take am of surgery PONV PONV - adult care manager: PONV - adult care manager Female Yes 07/15/25 09:49 HX of Motion Sickness No 07/15/25 09:49 HX of N/V After Surgery No 07/15/25 09:49 Non-Smoker Yes 07/15/25 09:49 Duration of Surgery greater No 07/15/25 09:49 than 60 minutes Number of Risk Factors 2 07/15/25 09:49 PONV Score Moderate Risk 07/15/25 09:49 Height & Weight Height & Weight: Anesthesia: Height & Weight Height 5 ft 07/18/25 09:16 Weight: 80 kg 07/18/25 09:16 Body Mass Index (BMI) 34.4 07/18/25 09:16 Respiratory Assessment Respiratory Assessment - adult care manager: Respiratory Tract Infection Hx - adult care manager Hx Respiratory Tract Infection No 07/18/25 09:45 STOP Sleep Apnea STOP Sleep Apnea - adult care manager: STOP Sleep Apnea - adult care manager Hx Hypertension No 07/18/25 09:45 Hx Sleep Apnea No 07/18/25 09:45 CPAP No 07/18/25 09:45 BIPAP Do you snore loudly (louder Yes 07/18/25 09:45 than talking or can be heard Do you often feel tired/ No 07/18/25 09:45 fatigued/ sleepy during daytime? Has anyone observed you stop No 07/18/25 09:45 breathing during sleep? STOP Results Negative 07/18/25 10:03 QUESTION #5 FULL TEXT : Do you snore loudly (louder than talking or can be heard through closed doors)? 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 Specify any problems Hx of Preganancy in last 3 N/A 07/15/25 09:49 Months Nurse Filling Out Transfusion NBUCHER 07/15/25 09:49 & Questions: Date: 07/15/25 07/15/25 09:49 Time: 09:50 07/15/25 09:49 Patient unable to answer at this time (ie. confused, unrespo /Reproduction History /Reproductive History - adult care manager: /Reproductive Hx- adult care manager Hx Now No 07/18/25 09:45 Gestational Age (in weeks): EDC: Hx Hx Para Hx Section SAB No 07/15/25 09:49 Active Medications Active Medications: Current Medications Generic Name Dose Route Start Last Admin Trade Name Freq PRN Reason Stop Dose Admin Lactated Ringer's 1,000 mls @ 15 mls/hr 07/18/25 09:30 IV .Q48H SAMANTHA PFSH Medical History Loss of hearing Wears glasses High cholesterol Non-smoker History of stress test History of trigger finger History of high cholesterol History of hearing problem History of UTI SOB (shortness of breath) Asthma Home Medications ?Medication ?Instructions ?Recorded ?Last Taken ?Type pravastatin 40 mg tablet 40 mg PO QHS 02/06/15 07/17/25 History coenzyme Q10 30 mg capsule (CoQ-10) 100 mg PO QHS 10/03/19 07/17/25 History nitrofurantoin macrocrystal 50 mg 100 mg PO QHS prevent UTI 10/03/19 07/17/25 History capsule calcium 600 mg (as 2 ea PO QHS 03/17/20 07/17/25 History carbonate)-vitamin D3 20 mcg (800 unit) tablet fluticasone propionate 110 1 puff inhalation BID asthma 03/17/20 07/17/25 History mcg/actuation HFA aerosol inhaler Allergy/AdvReac Type Severity Reaction Status Date / Time codeine Allergy Shortness Verified 07/15/25 09:48 of breath Iodinated Contrast Media Allergy Hives Verified 07/15/25 09:48 (CONTRASTS) Penicillins Allergy Shortness Verified 07/15/25 09:48 of breath Sulfa (Sulfonamide Allergy Shortness Verified 07/15/25 09:48 Antibiotics) of breath Family History Grandfather Colon cancer Mother Asthma CVA (cerebral vascular accident) Mother Cancer esophageal Other CAD (coronary artery disease) Surgical History S/P trigger finger release History of esophagogastroduodenoscopy (EGD) History of colonoscopy H/O section History of hysterectomy Social History Smoking Status: Never smoker alcohol intake: never substance use type: does not use additional social history: pt denies vaping, denies edibles, denies marijuana use, denies aspirin and denies ibuprofen use pt denies any hx of blood clots Review of Systems (Anesthesia) ROS Narrative System reviewed and no additional complaints, except as documented. Physical Exam Resp clear to auscultation bilaterally
--- NOTE | 2025-07-18 11:18 | OP.COLON_ITS ---
Patient Name: Cynthia Wallis Procedure Date: 07/18/2025 10:35 AM Date of : 1965 Age: 60 Procedure: Colonoscopy Indications: Screening for colon cancer: Family history of colorectal cancer in multiple 2nd degree relatives Providers: Karyn Powers MD Referring MD: Lucas Infante Medicines: Monitored Anesthesia Care Patient Profile: This is a 60 year old female. Last Colonoscopy: April 2020. Complications: No immediate complications. Procedure: Pre-Anesthesia Assessment: - Prior to the procedure, a History and Physical was performed, and patient medications and allergies were reviewed. The patient's tolerance of previous anesthesia was also reviewed. The risks and benefits of the procedure and the sedation options and risks were discussed with the patient. All questions were answered, and informed consent was obtained. Prior Anticoagulants: The patient has taken no anticoagulant or antiplatelet agents. ASA Grade Assessment: Per anesthesia. After reviewing the risks and benefits, the patient was deemed in satisfactory condition to undergo the procedure. After I obtained informed consent, the scope was passed under direct vision. Throughout the procedure, the patient's blood pressure, pulse, and oxygen saturations were monitored continuously. The pediatric colonoscope was introduced through the anus and advanced to the cecum, identified by the appendiceal orifice, ileocecal valve and palpation. The colonoscopy was performed without difficulty. The patient tolerated the procedure well. The quality of the bowel preparation was good. Scope In: 10:46:31 AM Scope Withdrawal Time 0 hours 18 minutes 20 seconds Scope Out: 11:12:01 AM Total Procedure Duration Time 0 hours 25 minutes 30 seconds Findings: Hemorrhoids were found on perianal exam. Non-bleeding internal hemorrhoids were found. The hemorrhoids were Grade I (internal hemorrhoids that do not prolapse). A less than 5 mm polyp was found in the transverse colon. The polyp was sessile. Biopsies were taken with a cold forceps for histology. Polypectomy was attempted, initially using a hot snare. Polyp resection was incomplete with this device. This intervention then required a different device and polypectomy technique. The polyp was removed with a cold biopsy forceps. Resection and retrieval were complete. The exam was otherwise without abnormality. Impression: - Hemorrhoids found on perianal exam. - Non-bleeding internal hemorrhoids. - One less than 5 mm polyp in the transverse colon, removed with a cold biopsy forceps. Resected and retrieved. Biopsied. - The examination was otherwise normal. Recommendation: - Discharge patient to home. - Resume previous diet. - Continue present medications. - Await pathology results. - Repeat colonoscopy in 3 years for surveillance based on pathology results. Procedure Code(s): --- Professional --- 38378, PT, Colonoscopy, flexible; with biopsy, single or multiple Diagnosis Code(s): --- Professional --- Z80.0, Family history of malignant neoplasm of digestive organs K64.0, First degree hemorrhoids D12.3, Benign neoplasm of transverse colon (hepatic flexure or splenic flexure) CPT copyright 2021 [employer]. All rights reserved. The codes documented in this report are preliminary and upon braille coder review may be revised to meet current compliance requirements. MD Karyn Adams MD 07/18/2025 11:17:39 AM This report has been signed electronically. Number of Addenda: 0 Note Initiated On: 07/18/2025 10:35 AM
--- NOTE | 2025-07-18 11:18 | OP.PROVAT_ITS ---
07/18/2025 Lucas Infante [address] [facility] [place] [address] Re : Colonoscopy procedure for Cynthia Wallis Dear Dr. Infante This procedure was performed on Friday, July 18, 2025. My impressions and recommendations are as follows: Impressions : - Hemorrhoids found on perianal exam. - Non-bleeding internal hemorrhoids. - One less than 5 mm polyp in the transverse colon, removed with a cold biopsy forceps. Resected and retrieved. Biopsied. - The examination was otherwise normal. Recommendations : - Discharge patient to home. - Resume previous diet. - Continue present medications. - Await pathology results. - Repeat colonoscopy in 3 years for surveillance based on pathology results. My findings are described in the full procedure note, which is enclosed. If I can be of further assistance, please feel free to contact me at Doctor phone number(s): , Work: . Sincerely, MD Karyn Adams MD 07/18/2025 11:17:39 AM This report has been signed electronically.
--- NOTE | 2025-07-18 11:21 | PCM.POST.ANE ---
Anesthesia: Postop Eval I Current Vital Signs Temperature: 97 F Pulse Rate: 72 Blood Pressure: 130/80 Respiratory Rate: 16 Pulse Ox: 96 Oxygen Delivery Method: Room Air Assessment Airway patent: Yes Spontaneous unlabored respirations: Yes Mental status: Awake and Calm nausea: No Vomiting: No Anesthesia Complication: No Fluid Hydration Crystalloid volume administer (ml): 600 Total IV fluid infused: 600 Progress Note Anesthesia document: Postop Eval 1 completed: Yes
[2025-07-18] MEDS: Lactated Ringers 1,000 ML 15 ML IV (11:38)
--- NOTE | 2025-07-18 12:33 | PCM.POSTANE2 ---
Anesthesia Postop Eval I Sum Postop Eval Completion status Anesthesia document: Postop Eval 1 completed: Yes Anesthesia Postop Eval I Summary Anesthesia Postop Eval I Summary: Anesthesia Postop Eval I: Assessment Summary Airway patent Yes 07/18/25 11:22 [email or web address] Spontaneous unlabored Yes 07/18/25 11:22 [email or web address] respirations Mental status Awake,Calm 07/18/25 11:22 [email or web address] nausea No 07/18/25 11:22 [email or web address] Vomiting No 07/18/25 11:22 [email or web address] Anesthesia Postop Eval I: Fluid Summary Crystalloid volume administer 600 07/18/25 11:22 [email or web address] (ml) Colloids volume administered ( ml) Blood Product volume administered (ml) Total IV fluid infused 600 07/18/25 11:22 [email or web address] Anesthesia Postop Eval I: Summary Notes Anesthesia Complication No 07/18/25 11:22 [email or web address] Anesthesia Complication Comment: Post-operative progress note Anesthesia: Postop Eval II Evaluation Mental status: Awake and Calm Pain Level: 0 nausea: No Vomiting: No Complications Anesthesia Complication: No
== END 2025-07-18 12:05 | disposition home or self-care (01) ==
LOC: EN 08:58 → AC 09:02
PROVIDERS: PCP Family Medicine; Referring Provider Family Medicine; Visit Provider Surgery
PROC: 0DJD8ZZ Inspection of Lower Intestinal Tract, Via Natural or Artificial Opening Endoscopic (ICD-10-PCS; CPT 45378; principal; 2025-07-18 09:55)
DX: Z12.11 Encounter for screening for malignant neoplasm of colon (principal); K63.5 Polyp of colon; Z86.0100 Personal history of colon polyps, unspecified; K64.0 First degree hemorrhoids; E78.00 Pure hypercholesterolemia, unspecified; Z80.0 Family history of malignant neoplasm of digestive organs; Z79.899 Other long term (current) drug therapy; J45.909 Unspecified asthma, uncomplicated; Z79.51 Long term (current) use of inhaled steroids; Z90.710 Acquired absence of both cervix and uterus; K64.4 Residual hemorrhoidal skin tags
CPT/HCPCS: 45380; 88305; J2405